=== PATIENT | male | born 1970 | race Caucasian/White ===

== ENCOUNTER 2019-04-21 10:10 | Emergency (ER) | payer MEDICARE, MEDICAID, SELFPAY ==
[2019-04-21 10:20] VITALS: BMI 37.5
--- NOTE | 2019-04-21 10:20 | ED_ITS ---
Entered by Cici Sanchez, acting as scribe for Andrew Ruiz DO HPI - General Adult General: Chief complaint: Neuro Symptoms/Deficit Stated complaint: Numbness Time Seen by Provider: 04/21/19 10:20 Source: patient Mode of arrival: ambulatory History of Present Illness: HPI narrative: 48 yo male presents with numbness to R face and R hand. pt states this started this morning while working. pt had pain to R shoulder also. pt states he felt he was having a allergic reaction so he took Benadryl but the symptoms worsened so he came in. pt denies any other symptoms at this time. 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) Location: face and upper extremity (R hand) Radiation: non-radiation Severity: moderate Pain Consistency: constant Relieving factors: none Exacerbating factors: none Associated symptoms: Reports no associated symptoms; Deny chest pain, dyspnea, malaise, nausea, rash or vomiting Treatments prior to arrival: none Review of Systems General: Reports: 10 or more systems reviewed and unremarkable except in HPI and below Const: Denies: fever, chills, body aches, change in appetite, fatigue or malaise ENMT: Denies: throat pain, ear pain, nasal discharge or nasal congestion Card: Denies: chest pain, edema, shortness of breath on exertion or shortness of breath when lying down Resp: Denies: shortness of breath, productive cough or non-productive cough GI: Denies: abdominal pain, nausea, vomiting, vomiting blood, coffee grounds in vomit, diarrhea, constipation, bloating, blood in stool or black tarry stool : Denies: flank pain, painful urination, urinary frequency or urinary urgency Skin/Breast: Denies: rash or itching Neuro: Reports: numbness in extremities PFSH ED PFSH: Statuses (acute, chronic, etc) shown below reflect problem list status as previously entered and may not be historically accurate Family History Grandmother Hypertension MATERNAL Social History Smoking and tobacco status: never smoked Physical Exam Const: COMMON NORMALS: no apparent distress GENERAL APPEARANCE: cooperative and comfortable ORIENTATION/CONSCIOUSNESS: Yes awake, Yes oriented to person, Yes oriented to place and Yes oriented to time HENMT: COMMON NORMALS: normocephalic, head/scalp atraumatic, hearing grossly normal bilaterally, external ears normal, EAC's normal, TM's normal bilaterally, nasal mucous membranes and turbinates normal, moist oral mucous membranes and oropharynx normal HEAD & SCALP: normocephalic and atraumatic NOSE: nasal mucous membranes and turbinates normal EXTERNAL EAR: Yes external ears normal EXTERNAL AUDITORY CANAL: EAC's normal TYMPANIC MEMBRANE: TM's normal bilaterally Eye: COMMON NORMALS: PERRL, EOMs intact bilaterally, conjunctivae normal and no scleral icterus CONJUNCTIVA: Yes conjunctivae normal PUPIL: Yes PERRL Neck/C-Spine: COMMON NORMALS: full ROM, no lymphadenopathy, supple and no JVD Lymph: LYMPHATIC: no lymphadenopathy noted and no lymphedema noted Resp: COMMON NORMALS: normal respiratory effort, no retractions, no use of accessory muscles and clear to auscultation bilaterally AUSCULTATION: clear to auscultation bilaterally Cardio: COMMON NORMALS: no JVD, regular rate, regular rhythm and no murmurs RATE: regular rate RHYTHM: regular rhythm GI: COMMON NORMALS: soft to palpation and no hepatosplenomegaly AUSCULTATION: Yes normoactive bowel sounds PALPATION: Yes soft, No tender, No guarding and Yes no hepatosplenomegaly Extremity: COMMON NORMALS: normal to inspection, normal capillary refill, no clubbing, cyanosis or edema, no calf tenderness and no pedal edema Neuro: SENSORIUM/ORIENTATION: Yes oriented to person, Yes oriented to place and Yes oriented to time Skin: COMMON NORMALS: no rashes or lesions noted GENERAL SKIN EXAM: no rashes or lesions noted Course ED course: Reviewed stroke score with the patient also reviewed the implications of physical exam finding. It is facial symptoms are only in 1 distribution of the facial nerve. 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 I do not believe this represents a central event seems to be more of a 2 different peripheral neurologic events a stroke score is low and his CT is normal. We will go ahead and discharge him home I am and have him take a baby aspirin daily have him follow-up with Dr. Anton. Return if has problems. Vital Signs: Vital signs: Vital Signs Temperature 97.8 F 02/10/20 10:28 Pulse Rate 87 04/21/19 11:57 Respiratory Rate 16 04/21/19 11:57 Blood Pressure 139/86 04/21/19 11:57 Pulse Oximetry 94 04/21/19 11:57 MDM - General Adult Lab Data: Labs: Lab Results 04/21/19 Range/Units 10:35 Specimen Type Arterial Sample Site Radial, left ABG pH 7.45 (7.35-7.45) ABG pCO2 35.6 (35-45) mmHg ABG pO2 66.0 L (80.0-100.0) mmH g ABG HCO3 24.8 (22-26) mmol/L ABG O2 Saturation 94.4 ABG Base Excess 1.3 (-2.0-2.0) mmol/ L Mehdi Test Pos A-a O2 Gradient 38.8 H (5-10) mmHg Hematocrit 48.7 (42-52) % Hgb O2 Saturation 89.5 L (95-100) % Carboxyhemoglobin 4.3 (0.4-20.1) %THgb Methemoglobin 0.9 (0.4-1.5) % Total Hemoglobin 15.9 (14-18) g/dL Sodium 142.0 (131-143) mmol/L Potassium 4.0 (3.5-5.0) mmol/L Glucose 119.0 H (70-115) mg/dL Ionized Calcium 1.2 (1.1-1.4) mmol/L O2 Delivery Device Room air Or First Assist Registered Nurse ID gd Imaging Data^: CT Head: Radiologist's impression: [place] [address] CT Scan Report Signed Patient: Jaspreet Charlton #: [id number] : 1970Acct#:[id number] Age/Sex: 48 / MADM Date: 04/21/19 Loc: ERRoom/Bed: Attending Dr: Ordering Provider/Ordering MD: Andrew Ruiz DO Date of Service: 04/21/19 Procedure(s): CT head wo con* [id number] Accession Number(s): [id number] Report Number: [id number] WS: [id number] CT HEAD TECHNIQUE: Noncontrast CT of the head obtained from the skullbase to the vertex. CLINICAL INFORMATION: R arm numbness COMPARISON: January 30, 2018 DLP: 859.[address] scans at [facility] use at least one of these dose optimization techniques: automated exposure control; mA and/or kV adjustment per patient size (includes targeted exams where dose is matched to clinical indica tion); or iterative reconstruction. FINDINGS: Beam hardening artifact degrades images from cochlear implants. No evidence of intracranial hemorrhage or mass effect. Ventricular system and basal cisterns are patent. No extra-axial fluid collections. No evidence of mass or mass effect. Normal ferro-white differentiation. Postoperative changes both mastoids with cochlear implants and partial mastoi dectomies. Chronic left greater than right mastoid effusions Notified Andrew Ruiz DO at 04/21/2019 11:[address]/CT head wo con* [id number] IMPRESSION: 1. No evidence of intracranial hemorrhage or mass effect. 2. Normal ferro-white differentiation. No hydrocephalus. 3. Bilateral cochlear implants with partial mastoidectomies and chronic left greater than right mastoid effusions. Dictated By:Henrry Horn MD Signed By:Henrry Horn MDSigned Date/Time:04/21/19 1137 Discharge Plan Discharge Patient Disposition: Home, Self-Care Clinical Impression: Facial nerve sensory disorder, Ulnar nerve neuropathy Condition: Stable Prescriptions: New aspirin 81 mg tablet,chewable 81 mg PO DAILY Qty: 30 RF: 4 No Action carisoprodol [Soma] 350 mg tablet 350 mg PO DAILY RF: 0 lisinopril 20 mg tablet 20 mg PO DAILY RF: 0 hydrocodone-acetaminophen 10-325 mg tablet 1 tab PO Q6H PRN (Reason: pain) 30 Days Qty: 91 RF: 0 Benadryl 25 mg Capsule 25 mg PO DAILY PRN (Reason: Itching) RF: 0 Discharge Orders: Discharge Order (Routine); Ordered 04/21/19 Ordered By: Andrew Ruiz Referrals: Mita Anton MD [Physician] - (Previous head trauma, right-sided facial nerve numbness right ulnar neuropathy) Discharge Diet: Usual diet Discharge Activity: Increase activity as tolerated Patient Instructions: Aspirin (By mouth), Paresthesia (ED) Activity Restrictions/Additional Instructions: Case management will call with referral to Dr. Anton Discharge Date/Time: 04/21/19 12:03 Coding Level of Care Code ED Cashier Host/Hostess for Sherifg Fwd Exam Problem Focused NIH stroke score NIHSS Level Of Consciousness - 1a: 0 Level Of Consciousness Questions - 1b: Both Correct Level Of Consciousness Commands - 1c: Both Correct Best Gaze - 2: Normal Visual Singh - 3: No Visual Loss Facial Palsy - 4: Normal Motor Arm Right - 5: No Drift Motor Arm Left - 5: No Drift Motor Leg Right - 6: No Drift Motor Leg Left - 6: No Drift Limb Ataxia - 7: Absent Sensory - 8: Mild To Moderate Loss Best Language - 9: No Aphasia Dysarthia - 10: Normal Extinction And Inattention - 11: 0 Score Total Score: 1 The documentation recorded by the Daniel lutz Bridget Annette, accurately reflects the service I personally performed and the decisions made by Sara west Curtis L, DO Apr 21, 2019 10:10
[2019-04-21 10:28] VITALS: BP 145/96; PULSE 97; RESP 16; TEMP 36.6; O2SAT 91
--- NOTE | 2019-04-21 10:29 | CT_ITS ---
WS: [id number] CT HEAD TECHNIQUE: Noncontrast CT of the head obtained from the skullbase to the vertex. CLINICAL INFORMATION: R arm numbness COMPARISON: January 30, 2018 DLP: 859.[address] scans at [facility] use at least one of these dose optimization techniques: automat ed exposure control; mA and/or kV adjustment per patient size (includes targeted exams where dose is matched to clinical indication); or iterative reconstruction. FINDINGS: Beam hardening artifact degrades images from cochlear implants. No evidence of intracranial hemorrhage or mass effect. Ventricular system and basal cisterns are cunningham nt. No extra-axial fluid collections. No evidence of mass or mass effect. Normal ferro-white different iation. Postoperative changes both mastoids with cochlear implants and partial mastoidectomies. Chronic left greater than right mastoid effusions Notified Andrew Ruiz DO at 04/21/2019 11:[address]/CT head wo con* [id number] IMPRESSION: 1. No evidence of intracranial hemorrhage or mass effect. 2. Normal ferro-white differentiation. No hydrocephalus. 3. Bilateral cochlear implants with partial mastoidectomies and chronic left g reater than right mastoid effusions.
[2019-04-21 10:52] LABS: ABG PCO2 35.6 mmHg (35-45); ABG PH Result 7.45 (7.35-7.45); Alveolar-Arterial Oxygen Gradi 38.8 mmHg (5-10); Arterial Blood Gas Hematocrit 48.7 % (42-52); Base Excess ABG 1.3 mmol/L (-2.0-2.0); Blood Gas Allen Test Pos; Blood Gas Sample Site Radial, left; Blood Gas Sample Type Arterial; Carboxyhemoglobin 4.3 %THgb (0.4-20.1); HCO3 ABG 24.8 mmol/L (22-26); HGB O2 Sat 89.5 % (95-100); Ionized Calcium Level - ABG 1.2 mmol/L (1.1-1.4); Methemoglobin 0.9 % (0.4-1.5); Oxygen Device ROOM AIR; Oxygen Saturation ABG 94.4; Total Hemoglobin 15.9 g/dL (14-18)
--- NOTE | 2019-04-21 11:14 | PC.NURSE ---
Pt returned from CT
[2019-04-21 11:36] VITALS: BP 139/86; PULSE 90; RESP 18; O2SAT 94
[2019-04-21] MEDS: ondansetron 2 mg/ML SDV 2 mL 4 MG IM (11:48)
[2019-04-21 11:57] VITALS: BP 139/86; PULSE 87; RESP 16; O2SAT 94
--- NOTE | 2019-04-22 14:43 | DCPLANNER ---
customer service manager had message to schedule a follow up appointment for patient with Dr. Anton. customer service manager called the office of Dr. Anton, spoke with Pura, was told that patients information would be printed and reviewed. Clinic will call patient with appointment information. customer service manager will call for appointment information.
--- NOTE | 2019-04-25 15:02 | DCPLANNER ---
Patient has an appointment scheduled for Monday, June 03, 2019 at 8:[address] Anton. Clinic will call patient with appointment information.
--- NOTE | 2019-05-02 15:43 | DCPLANNER ---
Patient did attend appointment scheduled for 05.05.[address] Anton.
== END 2019-04-21 12:03 | disposition home or self-care (01) ==
PROVIDERS: Emergency Provider Family Medicine; Family Provider Family Medicine
DX: G51.8 Other disorders of facial nerve (principal); G56.20 Lesion of ulnar nerve, unspecified upper limb
CPT/HCPCS: 36600; 70450; 80051; 82810; 83986; 96372; 99281; 99283; J2405

== ENCOUNTER → 2019-04-28 09:13 | Outpatient (BNVA) | payer MEDICARE, MEDICAID, SELFPAY | PROVIDERS: Family Provider Family Medicine; PCP Family Medicine; Referring Provider Family Medicine; Visit Provider Specialist | DX: R20.0 Anesthesia of skin (principal); M54.9 Dorsalgia, unspecified; S06.309D Unspecified focal traumatic brain injury with loss of consciousness of unspecified duration, subsequent encounter; X58.XXXD Exposure to other specified factors, subsequent encounter | CPT/HCPCS: 99204; 99214 ==

== ENCOUNTER 2019-04-29 07:33 | Outpatient (RCR) | payer MEDICARE, MEDICAID, SELFPAY | END 2019-05-10 23:59 | disposition home or self-care (01) | LOC: SPT 07:33 | PROVIDERS: Family Provider Family Medicine; PCP Family Medicine; Visit Provider Specialist | DX: M54.9 Dorsalgia, unspecified (principal) | CPT/HCPCS: 97110; 97162 ==

== ENCOUNTER → 2019-05-05 08:54 | Outpatient (BNVA) | payer MEDICARE, MEDICAID, SELFPAY | PROVIDERS: Family Provider Family Medicine; PCP Family Medicine; Visit Provider Specialist | DX: R20.0 Anesthesia of skin (principal); R29.90 Unspecified symptoms and signs involving the nervous system; R20.2 Paresthesia of skin | CPT/HCPCS: 95910 ==

== ENCOUNTER 2019-05-11 06:00 | Outpatient (RCR) | payer MEDICARE, MEDICAID, SELFPAY | END 2019-06-10 23:59 | disposition home or self-care (01) | LOC: SPT 06:00 | PROVIDERS: Family Provider Family Medicine; PCP Family Medicine; Visit Provider Specialist | DX: M54.9 Dorsalgia, unspecified (principal) | CPT/HCPCS: 97110 ==

== ENCOUNTER 2019-05-15 08:01 | Outpatient (CLI) | payer BC, MEDICAID, SELFPAY ==
--- NOTE | 2019-05-15 08:45 | USCV_ITS ---
Jaspreet Charlton Age: 48 Gender: M : 1970 Exam Date: 05/15/2019 08:36 Ordering Phys: Mita Anton MD Technologist: Estephania Macario Exam Location: [facility] Indication: TIA Risk Factors: Unknown Previous Vascular Surgery: None Right Brachial BP: / Left Brachial BP: / Right Left Velocity (cm/s) Spectral Plaque Velocity (cm/s) Spectral Plaque Syst/Diast Broadening Syst/Diast Broadening 94.80/ 25.40 Prox CCA 110.30/ 24.30 106.90/24.30 Mid CCA 87.10 / 22.10 91.50/ 22.10 Distal CCA 76.10 / 20.90 111.40/17.60 Prox ICA 88.20 / 20.90 71.70/ 23.20 Mid ICA 86.00 / 30.90 71.70/ 32.00 Distal ICA 52.10 / 18.80 134.50 ECA 100.30 1.22 ICA/CCA 1.16 Antegrade Vertebral Antegrade 34.80/ 10.50 cm/s 37.60/ 14.50 cm/s Subclavian 98.10 94.70 FINDINGS Comparison: none available. No significant elevation of systolic or diastolic velocities. Waveforms are normal. No significant amount of calcified plaque or intimal thickening identified. CONCLUSIONS Normal carotid doppler ultrasound. Dr. Lois St DO (Electronically Signed) Final Date: 15 May 2019 09:34 S
== END 2019-05-15 08:02 | disposition home or self-care (01) ==
PROVIDERS: Family Provider Family Medicine; PCP Family Medicine; Visit Provider Specialist
DX: G45.9 Transient cerebral ischemic attack, unspecified (principal)
CPT/HCPCS: 93880

== ENCOUNTER → 2019-07-16 14:03 | Outpatient (BNVA) | payer MEDICARE, MEDICAID, SELFPAY | PROVIDERS: Family Provider Family Medicine; PCP Family Medicine; Visit Provider Specialist | DX: I99.8 Other disorder of circulatory system (principal); F07.81 Postconcussional syndrome; R26.81 Unsteadiness on feet; S06.309D Unspecified focal traumatic brain injury with loss of consciousness of unspecified duration, subsequent encounter; X58.XXXD Exposure to other specified factors, subsequent encounter | CPT/HCPCS: 99214 ==

== ENCOUNTER → 2019-12-01 14:31 | Outpatient (BNVA) | payer MEDICARE, MEDICAID, SELFPAY | PROVIDERS: Family Provider Family Medicine; PCP Family Medicine; Visit Provider Family Medicine | DX: M70.20 Olecranon bursitis, unspecified elbow (principal); I10 Essential (primary) hypertension; M70.22 Olecranon bursitis, left elbow; L03.114 Cellulitis of left upper limb; Z68.39 Body mass index [BMI] 39.0-39.9, adult; Z71.89 Other specified counseling | CPT/HCPCS: 80053; 80061; 80500; 84550; 85025 ==

== ENCOUNTER → 2019-12-31 11:49 | Outpatient (BNVA) | payer MEDICARE, MEDICAID, SELFPAY | PROVIDERS: Family Provider Family Medicine; PCP Family Medicine; Visit Provider Family Medicine | DX: E03.9 Hypothyroidism, unspecified (principal); R79.89 Other specified abnormal findings of blood chemistry; R07.89 Other chest pain; M54.5 Low back pain; M15.9 Polyosteoarthritis, unspecified; G89.29 Other chronic pain | CPT/HCPCS: 84403; 84443 ==

== ENCOUNTER → 2020-01-01 18:13 | Outpatient (BNVA) | payer MEDICARE, MEDICAID, SELFPAY | PROVIDERS: Family Provider Family Medicine; PCP Family Medicine; Visit Provider Nurse Practitioner | DX: Z20.828 Contact with and (suspected) exposure to other viral communicable diseases (principal) | CPT/HCPCS: 87635 ==

== ENCOUNTER 2020-01-02 06:28 | Outpatient (CLI) | payer MEDICARE, MEDICAID, SELFPAY ==
--- NOTE | 2020-01-02 07:00 | XR_ITS ---
WS: [id number] KUB, 01/02/2020 Clinical Data: Stones Comparison: KUB, 02/20/2018. Findings: There is a calcification overlying the midportion of the right kidney. However this may be within the colon which is also overlapping the right kidney. No left renal calcifications are seen. There is a phlebolith in the right side of the true pelvis unchanged. There is a large amount of fecal material in the ascending and transverse colon. XR/XR KUB [id number] Impression: 1. Possible right renal calcification unchanged. 2. Negative for left renal calcifications or bladder calcifications.
== END 2020-01-02 06:29 | disposition home or self-care (01) ==
LOC: RAD 06:32
PROVIDERS: PCP Family Medicine; Visit Provider Urology
DX: N20.0 Calculus of kidney (principal)
CPT/HCPCS: 74018

== ENCOUNTER 2020-01-19 14:28 | Outpatient (CLI) | payer MEDICARE, MEDICAID, SELFPAY ==
--- NOTE | 2020-01-19 15:00 | US_ITS ---
WS: [id number] ULTRASOUND RENAL TECHNIQUE: Ultrasound examination of both kidneys. CLINICAL INFORMATION: RENAL MASS COMPARISON: None. FINDINGS: RIGHT:Superior pole simple Right renal cyst measuring 2.3 x 2.6 x 2.1 cm Right kidney is normal in size and appearance. Echogenicity: Normal. Cortical thickness: 1.7 cm; Normal. Hydronephrosis: None. Perinephric fluid: None. Right kidney measures: 12.5 cm x 6.3 cm x 6.6 cm. LEFT: Left kidney is normal in size and appearance. Echogenicity: Normal. Cortical thickness: 1.5 cm; Normal. Hydronephrosis: None. Perinephric fluid: None. Left kidney measures: 11.3 cm x 6.9 cm x 6.1 cm. Normal visualized aorta. Bladder is contracted. US/US renal BI* [id number] IMPRESSION: 1. No hydronephrosis in either kidney. 2. Normal bladder. 3. Superior pole simple Right renal cyst measuring 2.3 x 2.6 x 2.1 cm
== END 2020-01-19 14:29 | disposition home or self-care (01) ==
LOC: RAD 14:33
PROVIDERS: PCP Family Medicine; Visit Provider Nurse Practitioner Family
DX: N28.89 Other specified disorders of kidney and ureter (principal); N28.1 Cyst of kidney, acquired
CPT/HCPCS: 76770; 81003

== ENCOUNTER 2020-01-26 07:18 | Outpatient (CLI) | payer MEDICARE, MEDICAID, SELFPAY ==
--- NOTE | 2020-01-26 07:32 | NMCV_ITS ---
NM maria elena perf SPECT r/s* [id number] Jaspreet Charlton Age: 49 Gender: M : 1970 Exam Date: 01/26/2020 08:13 Ordering Phys: Hazel Smith Technologist: MARCIANO Beltran Exam Location: [facility] Indications: ANGINA STRESS TEST [facility] IMAGE PROTOCOL Rest/Stress 1 Exercise Day Radiopharmaceutical Dose (mCi) Administration Site Administered by Rest: Tc-99m 11.0 IV MARCIANO Enriquez Sestamibi Stress:Tc-99m 32.9 IV MARCIANO Enriquez Sestamibi Rest: 26-Jan-2020 60 Discovery 630 Stress: 26-Jan-2020 15 Discovery 630 Radiopharmaceutical was injected at 85 % maximum heart rate. Images obtained in supine and prone position. SPECT RESULTS Technical Quality: Excellent Raw Data Analysis: Normal Image Corrections: No attenuation or motion correction applied Summed Stress Score: 0 Summed Rest Score: 0 Summed Difference Score: 0 PERFUSION FINDINGS FUNCTIONAL RESULTS (calculated via Gated SPECT) Stress Image LV EF (%): 74 Stress EDV (mL):93 TID: 0.89 Stress ESV (mL):24 Rest Image LV EF (%): 74 FUNCTIONAL FINDINGS: Medium-size area of patchy decreased tracer uptake noted on basal to mid anterior wall over both stress and rest images suggestive of artifact in the absence of prone images. Large area of patchy persistently decreased tracer uptake noted in basal to distal inferior wall, in the absence of prone images could be artifact. IMPRESSIONS This study is negative for ischemia and low probability for obstructive coronary artery disease Left ventricle function is hyperdynamic and measured as 74%. EKG segment will be documented separately. Jeferson Samuel MD (Electronically Signed) Final Date: 27 January 2020 11:11 S
--- NOTE | 2020-01-26 07:32 | ECG_ITS ---
[facility] Test Date: 2020-01-26 Pat Name: Jaspreet Charlton Department: Room: Gender: Male Supervisor Cutting Department: Rebeka Almanza : 1970 Requested By: Hazel Smith Order Number: [id number] MD: KARI FAUST Interpretive Statements NAME OF STUDY: EXERCISE SESTAMIBI STRESS TEST INDICATION: Chest Pain EXERCISE DATA: The patient was exercised by Feliz protocol. Baseline heart rate was 75 beats per minute. Baseline blood pressure was 123/82 millimeters of mercury. Target heart rate was 171 beats per minute. Maximum heart rate achieved was 163, which was 95% of the target heart rate. Maximum blood pressure was 191/96 millimeters of mercury. Total exercise time was 4 minutes 6 seconds. Maximum METs achieved was 7.0, maximum VO2 was 24.5. The reason for ending the test was maximum effort achieved. The patient complained of during the stress test, which then resolved at the end of the test. ELECTROCARDIOGRAM: BASELINE: Sinus rhythm, normal axis, no significant ST-T changes at the baseline noted. EXERCISE: At the peak exercise level, no significant ST-T changes suggestive of ischemia noted. RECOVERY: During the recovery period, heart rate dropped appropriately. No significant ST-T changes in the recovery suggestive of ischemia noted. CONCLUSION: 1. Exercise capacity poor. 2. Heart rate response was appropriate. 3. Blood pressure response was hypertensive. 4. Symptoms not suggestive of ischemia. 5. Electrocardiogram portion of the stress test was not suggestive of ischemia. 6. Nuclear scan will be documented separately. Electronically Signed On 01-27-2020 20:33:40 ADVERTISING TEACHER by KARI FAUST [id number]
[2020-01-26 07:34] VITALS: BMI 37.5
[2020-01-26 09:07] VITALS: PULSE 99
== END 2020-01-26 07:19 | disposition home or self-care (01) ==
LOC: RAD 07:20
PROVIDERS: PCP Family Medicine; Visit Provider Nurse Practitioner Family
DX: R07.9 Chest pain, unspecified (principal)
CPT/HCPCS: 78452; 93017; A9500

== ENCOUNTER 2020-02-02 13:14 | Outpatient (CLI) | payer MEDICARE, MEDICAID, SELFPAY ==
--- NOTE | 2020-02-02 13:25 | XR_ITS ---
WS: [id number] ELBOW LEFT TECHNIQUE: 3 views of the left elbow CLINICAL INFORMATION: bursitis left elbow COMPARISON: None. FINDINGS: Soft tissue edema. No significant joint effusion. Soft tissue edema overlying the olecranon suspiciou s for olecranon bursitis. Recommend clinical correlation. Normal radial head and neck. No acute fract ures. XR/XR elbow LT min 3V* [id number] IMPRESSION: Soft tissue edema overlying the olecranon suspicious for olecranon bursitis. Re commend clinical correlation.
--- NOTE | 2020-02-02 13:25 | XR_ITS ---
WS: [id number] HIP WITH PELVIS RIGHT TECHNIQUE: 3 views of the right hip with pelvis CLINICAL INFORMATION: pain right hip COMPARISON: None. FINDINGS: Right hip is normal in appearance. No acute fractures. Mild joint space narrowing. Normal visualized right pubic rami. XR/XR hip RT 2-3V wo/w pel* [id number] IMPRESSION: No acute right hip fractures.
== END 2020-02-02 13:15 | disposition home or self-care (01) ==
PROVIDERS: PCP Family Medicine; Visit Provider Family Medicine
DX: M70.32 Other bursitis of elbow, left elbow (principal); M25.551 Pain in right hip; R60.0 Localized edema
CPT/HCPCS: 73080; 73502

== ENCOUNTER → 2020-02-04 12:05 | Outpatient (BNVA) | payer MEDICARE, MEDICAID, SELFPAY | PROVIDERS: PCP Family Medicine; Visit Provider Orthopaedic Surgery | DX: Z20.828 Contact with and (suspected) exposure to other viral communicable diseases (principal); Z11.59 Encounter for screening for other viral diseases | CPT/HCPCS: 87635 ==

== ENCOUNTER 2020-02-09 11:20 | Day surgery (SDC) | payer MEDICARE, MEDICAID, SELFPAY ==
[2020-02-04 16:12] VITALS: BMI 39.3
[2020-02-09 11:34] VITALS: BP 140/95; PULSE 82; RESP 18; TEMP 36.7; O2SAT 96
[2020-02-09] MEDS: sodium chloride 0.9% 1,000 ML 30 ML IV (11:48)
[2020-02-09] MEDS: HYDROcodone-acetaminophen 7.5-325 mg Tablet 1 TAB PO (12:10)
--- NOTE | 2020-02-09 13:21 | W.PM.OPSUD ---
Surgery/Procedure H&P Update DATE OF PROCEDURE: February 09, 2020 DATE H&P PERFORMED: 02/04/20 H&P UPDATE INFORMATION: I have reviewed H&P completed within last 30 days, I have examined patient prior to procedure and No changes to prior documentation PREOP DIAGNOSIS: left elbow bursitis PLANNED PROCEDURE: Operation Date: 02/09/20 13:20 Proposed Procedures p Excision, olecranon bursa ([id number]) M71.50(Not Applicable) - Alejandro Connolly DO
--- NOTE | 2020-02-09 13:32 | ANES.PREANE2 ---
Pre-Anesthetic Assessment Pre-Anesthetic Assessment: Height/Weight: Height 1.7 m Weight 113.852 kg Temp Pulse Resp BP Pulse Ox 98.1 F 82 18 140/95 96 02/09/20 11:34 02/09/20 11:34 02/09/20 11:34 02/09/20 11:34 02/09/20 11:34 Preop Diagnosis: left elbow bursitis Proposed Procedure: Operation Date: 02/09/20 13:20 Proposed Procedures p Excision, olecranon bursa ([id number]) M71.50(Not Applicable) - Alejandro Connolly, DO Was Beta Garima taken within 24 hours: Yes Last intake: Intake Last Liquid Date 02/09/20 Last Liquid Time 04:00 Last Solid Date 02/08/20 Last Solid Time 20:00 Social: Social History: No alcohol and No tobacco Exam: Pre-Anes Outpt Exam: alert, oriented x 3, clear to auscultation bilaterally and regular rate & rhythm Airway: Submandibular: WNL Cervical ROM: WNL MP: 2 Dentition: Full Additional comments: Schuler Pulmonary: Pulmonary: Sleep apnea CV/HEM: CV/HEM: HTN : : None reported Hepatic: Hepatic: None reported GI: GI: None reported Metabolic: Metabolic: None reported Musc/skel: Musc/skel: Lower Back Pain Comments: Chronic pain Neuropsych: Neuropsych: Neuropathy Anesthetic Plan: ASA status: 3 Anesthesia: General Risk of > 500 ml blood loss (7ml/kg in children): No Meds/Allergies Current Medications: Current Medications Generic Name Dose Route Start Last Admin Trade Name Freq PRN Reason Stop Dose Admin Sodium Chloride 1,000 mls @ 30 ml s/hr 02/09/20 11:30 02/09/20 11:48 Sodium Chloride 0.9% IV 02/10/20 11:29 30 mls/hr .Q24H EDMOND Administration PFSH Anesthesia PFSH: Medical History Essential hypertension HTN (hypertension) Hypothyroid Low testosterone GABBIE (obstructive sleep apnea) Osteoarthritis involving multiple joints on both sides of body Osteoarthritis of right hip Renal calculus, right Renal cyst, right Renal mass, right Family History Grandmother Hypertension MATERNAL Other CAD (coronary artery disease) Stroke Denies family history of Diabetes Cancer Social History Smoking and tobacco status: never smoked Alcohol intake: never History of recent travel: No Data Anesthesia Cardiac Studies: Cardiac Event Monitor 12/26/19
--- NOTE | 2020-02-09 14:06 | SUR.PREOP ---
REPORT WAS GIVEN FROM NIDHI ODOM TO NIDHI ODONNELL @3919
--- NOTE | 2020-02-09 15:21 | PM.OP ---
Operative Report Date of procedure: February 09, 2020 Pre-op Diagnosis: left elbow bursitis Post-op diagnosis: same Procedure Done: left elbow bursectomy Anesthesia: General Estimated blood loss (mL): 5 Condition: stable Disposition: PACU Procedure: Patient was brought to the operative suite placed in the supine position all areas impingement well-padded patient was prepped and draped in normal sterile fashion. Skin incision made over the bursa the bursa sac was dissected out using Metzenbaums and Bovie. Once the bursal sac was removed it was sent for cultures. The wound was then irrigated and wound was closed with 2-0 Vicryl tacking of the skin to the tissue along the bone. In order to close the space. The 2-0 Vicryl was used to close the subcu and nylon to close the skin. Patient was has sterile dressings applied patient had a posterior splint placed in order to facilitate healing the wound.
[2020-02-09 15:26] VITALS: BP 114/79; PULSE 100; RESP 19; TEMP 37.1; O2SAT 98
[2020-02-09 15:30] VITALS: BP 111/85; PULSE 97; RESP 18; O2SAT 98
[2020-02-09 15:35] VITALS: BP 117/82; PULSE 87; RESP 18; TEMP 36.6; O2SAT 99
[2020-02-09 15:43] VITALS: BP 121/83; PULSE 95; RESP 16; TEMP 36.4; O2SAT 93
--- NOTE | 2020-02-09 15:49 | SUR.PHASEI ---
1540 PT ALERT TALKATIVE PT HAS COCHLEAR IMPLANTS BILAT EARS PT ADJUSTED THEM AND RESPONDS APPROP , VSS PT REQUESTS COKE TO SIP ON PT TO OPS AWAKE ALERT HANDOFF AT BEDSIDE.
[2020-02-09 15:58] VITALS: BP 117/82; PULSE 94; RESP 16; TEMP 36.6; O2SAT 95
--- NOTE | 2020-02-09 17:09 | PM.PACU ---
PACU note PACU note: VSS Post-Anesthesia Exam: awake Disposition: discharged
== END 2020-02-09 16:50 | disposition home or self-care (01) ==
PROVIDERS: PCP Family Medicine; Visit Provider Orthopaedic Surgery
PROC: (CPT 24105; principal; 2020-02-09 13:10)
DX: M70.32 Other bursitis of elbow, left elbow (principal); I10 Essential (primary) hypertension; G47.33 Obstructive sleep apnea (adult) (pediatric); E03.9 Hypothyroidism, unspecified
CPT/HCPCS: 24105; 12345; 87070; 87176; 87205; J0690; J2250; J2405; J2704; J3010; J3490; J7030

== ENCOUNTER 2020-02-19 14:04 | Outpatient (CLI) | payer MEDICARE, MEDICAID, SELFPAY | END 2020-02-19 14:05 | disposition home or self-care (01) | LOC: SPT 14:06 | PROVIDERS: PCP Family Medicine; Visit Provider Orthopaedic Surgery | DX: R26.81 Unsteadiness on feet (principal) | CPT/HCPCS: 97760; L3761 ==

== ENCOUNTER → 2020-03-16 13:45 | Outpatient (BNVA) | payer MEDICARE, MEDICAID, SELFPAY | PROVIDERS: PCP Family Medicine; Visit Provider Internal Medicine | DX: M25.50 Pain in unspecified joint (principal); Z11.59 Encounter for screening for other viral diseases; E29.1 Testicular hypofunction; K04.7 Periapical abscess without sinus | CPT/HCPCS: 36415; 80053; 82306; 82550; 82728; 82955; 83540; 83735; 84100; 85025; 86140; 86431; 86704; 86803; 86812; 87340; 99203 ==

== ENCOUNTER 2020-03-17 13:20 | Outpatient (CLI) | payer MEDICARE, MEDICAID, SELFPAY ==
--- NOTE | 2020-03-17 13:34 | XR_ITS ---
WS: [id number] SI JOINTS TECHNIQUE: 3 views of the sacroiliac joints CLINICAL INFORMATION: L40.9 - Psoriasis, unspecified COMPARISON: None. FINDINGS: Normal sacroiliac joints. No periarticular erosions. XR/XR sacroiliac jts 3V [id number] IMPRESSION: Normal sacroiliac joints.
--- NOTE | 2020-03-17 13:34 | XR_ITS ---
WS: [id number] TECHNIQUE: 2 views of the left hand CLINICAL INFORMATION: M25.50 - Pain in unspecified joint COMPARISON: None. FINDINGS: Normal metacarpals. Normal MCP joint. Metacarpal heads are normal in appearance. Normal PIP and DIP j oints. No evidence of acute fracture or dislocation. Radiocarpal joint: Normal. Carpal bones: Normal. XR/XR hand LT 2V [id number] IMPRESSION: Normal left hand.
--- NOTE | 2020-03-17 13:34 | XR_ITS ---
WS: [id number] TECHNIQUE: 2 views of the right hand CLINICAL INFORMATION: M25.50 - Pain in unspecified joint COMPARISON: None. FINDINGS: Normal metacarpals. Normal MCP joint. Metacarpal heads are normal in appearance. Normal PIP and DIP j oints. No evidence of acute fracture or dislocation. Radiocarpal joint: Normal. Carpal bones: Normal. XR/XR hand RT 2V [id number] IMPRESSION: Normal right hand.
--- NOTE | 2020-03-17 13:34 | XR_ITS ---
WS: [id number] FOOT LEFT TECHNIQUE: 2 views of the left foot CLINICAL INFORMATION: M25.50 - Pain in unspecified joint COMPARISON: None. FINDINGS: No evidence of acute fracture or dislocation. Normal tarsal metatarsal alignment. Normal calcaneus. N ormal visualized talar dome. No acute findings. XR/XR foot LT 2V [id number] IMPRESSION: Normal left foot.
--- NOTE | 2020-03-17 14:16 | XR_ITS ---
WS: [id number] FOOT RIGHT TECHNIQUE: 2 views of the right foot CLINICAL INFORMATION: M15.9 - Polyosteoarthritis, unspecified COMPARISON: None. FINDINGS: No evidence of acute fracture or dislocation. Normal tarsal metatarsal alignment. Normal calcaneus. N ormal visualized talar dome. No acute findings. XR/XR foot RT 2V [id number] IMPRESSION: Normal right foot.
== END 2020-03-17 13:21 | disposition home or self-care (01) ==
LOC: RADWPI 13:27
PROVIDERS: PCP Family Medicine; Visit Provider Internal Medicine
DX: M15.9 Polyosteoarthritis, unspecified (principal); M25.50 Pain in unspecified joint; L40.9 Psoriasis, unspecified
CPT/HCPCS: 72202; 73120; 73620

== ENCOUNTER 2020-03-29 13:59 | Outpatient (RCR) | payer MEDICARE, MEDICAID, SELFPAY | END 2020-04-11 23:59 | disposition home or self-care (01) | LOC: SOT 13:59 | PROVIDERS: PCP Family Medicine; Referring Provider Orthopaedic Surgery; Visit Provider Orthopaedic Surgery | DX: Z98.890 Other specified postprocedural states (principal) | CPT/HCPCS: 97165 ==

== ENCOUNTER → 2020-04-06 10:14 | Outpatient (BNVA) | payer MEDICARE, MEDICAID, SELFPAY | PROVIDERS: PCP Family Medicine; Visit Provider Internal Medicine | DX: M19.90 Unspecified osteoarthritis, unspecified site (principal); R79.89 Other specified abnormal findings of blood chemistry; G47.00 Insomnia, unspecified; E55.9 Vitamin D deficiency, unspecified; M62.838 Other muscle spasm | CPT/HCPCS: 99214 ==

== ENCOUNTER → 2020-04-13 14:24 | Outpatient (BNVA) | payer MEDICARE, MEDICAID, SELFPAY | PROVIDERS: PCP Family Medicine; Referring Provider Internal Medicine; Visit Provider Internal Medicine | DX: E23.7 Disorder of pituitary gland, unspecified (principal); G62.9 Polyneuropathy, unspecified; R79.89 Other specified abnormal findings of blood chemistry | CPT/HCPCS: 99204 ==

== ENCOUNTER 2020-04-14 08:46 | Outpatient (CLI) | payer MEDICARE, MEDICAID, SELFPAY ==
[2020-04-14 10:02] LABS: Basophils # 0.1 10^3/uL (0.0-0.1); Eosinophils # 0.1 10^3/uL (0.0-0.8); Eosinophils % 1.9 %; Hematocrit 50.1 % (42.0-52.0); Hemoglobin 16.5 g/dL (11.7-16.6); Lymphocytes # 2.1 10^3/uL (0.8-4.8); Lymphocytes % 30.7 %; Mean Corpuscular HGB Conc 32.9 g/dL (30.0-36.0); Mean Corpuscular Hemoglobin 28.4 pg (28.0-34.0); Mean Corpuscular Volume 86.2 fL (80-94); Mean Platelet Volume 10.1 fL (7.4-10.4); Monocytes # 0.8 10^3/uL (0.2-0.9); Monocytes % 12.2 %; Neutrophils # 3.69 10^3/uL (1.8-7.7); Neutrophils % 53.8 %; Nucleated Red Blood Cells % 0 %; Platelet Count 334 10^3/cmm (130-400); Red Blood Count 5.81 10^6/uL (4.1-5.3); Red Cell Distribution Width 12.8 % (12.1-15.1); White Blood Count 6.9 10^3/uL (4.0-10.0)
[2020-04-14 10:20] LABS: Follicle Stimulating Hormone 0.3 mIU/mL (1.5-12.4); Luteinizing Hormone 0.2 mIU/mL (1.7-8.6); Prolactin 23.52 ng/mL (4.0-15.2); Prostate Specific Antigen 0.784 ng/mL (0-4)
[2020-04-14 11:27] LABS: Estmated Average Glucose 114; Hemoglobin A1C 5.6 % (4.0-6.0)
[2020-04-14 11:34] LABS: Free T4 Free Thyroxine 1.36 ng/dL (0.82-1.77); Testosterone Total 554.8 ng/dL (249-836)
[2020-04-14 11:36] LABS: Cortisol Random 4.27 ug/dL (2.47-19.5)
[2020-04-21 05:28] LABS: Adrenocorticotropic Hormone 9 pg/mL (6-50)
== END 2020-04-14 08:47 | disposition home or self-care (01) ==
PROVIDERS: PCP Family Medicine; Visit Provider Internal Medicine
DX: E23.7 Disorder of pituitary gland, unspecified (principal); G62.9 Polyneuropathy, unspecified; R79.89 Other specified abnormal findings of blood chemistry
CPT/HCPCS: 36415; 82024; 82533; 83001; 83002; 83036; 84146; 84153; 84403; 84439; 85025

== ENCOUNTER 2020-05-10 07:15 | Outpatient (CLI) | payer MEDICARE, MEDICAID, SELFPAY ==
[2020-05-10 07:45] LABS: Basophils # 0.1 10^3/uL (0.0-0.1); Basophils % 0.8 %; Eosinophils # 0.2 10^3/uL (0.0-0.8); Eosinophils % 2.3 %; Hematocrit 49.6 % (42.0-52.0); Hemoglobin 16.3 g/dL (11.7-16.6); Lymphocytes % 39.1 %; Mean Corpuscular HGB Conc 32.9 g/dL (30.0-36.0); Mean Corpuscular Hemoglobin 28.4 pg (28.0-34.0); Mean Corpuscular Volume 86.6 fL (80-94); Monocytes # 0.7 10^3/uL (0.2-0.9); Monocytes % 9.1 %; Neutrophils # 3.73 10^3/uL (1.8-7.7); Neutrophils % 48.3 %; Nucleated Red Blood Cells % 0 %; Platelet Count 294 10^3/cmm (130-400); Red Blood Count 5.73 10^6/uL (4.1-5.3); White Blood Count 7.7 10^3/uL (4.0-10.0)
[2020-05-10 08:04] LABS: Alanine Aminotransferase 28 U/L (0-41); Albumin Level 4.3 g/dL (3.5-5.2); Alkaline Phosphatase 87 IU/L (40-130); Anion Gap 11.8 (5-19); Aspartate Amino Transferase 17 U/L (0-40); Blood Urea Nitrogen 16 mg/dL (6-20); C Reactive Protein 1.1 mg/L (0.0-4.9); Calcium 8.8 mg/dL (8.5-10.5); Carbon Dioxide 28 mmol/L (22-29); Chloride 104 mmol/L (98-107); Globulin 2.6 g/dL (1.3-4.6); Glomerular Filtration Rate 102.7 mL/min (90-130); Glucose 98 mg/dL (65-115); Osmolality Calculated 291 mOsm/kg (285-295); Potassium 3.8 mmol/L (3.5-5.1); Sodium 140 mmol/L (136-145); Total Bilirubin 0.5 mg/dL (0.15-1.2); Total Protein 6.9 g/dL (6.6-8.7)
[2020-05-10 10:11] LABS: Erythrocyte Sedimentation Rate 3 mm/hr (0-10)
== END 2020-05-10 07:16 | disposition home or self-care (01) ==
LOC: LAB 07:20
PROVIDERS: PCP Family Medicine; Visit Provider Internal Medicine
DX: M19.90 Unspecified osteoarthritis, unspecified site (principal)
CPT/HCPCS: 36415; 80053; 85025; 85651; 86140

== ENCOUNTER → 2020-05-12 09:52 | Outpatient (BNVA) | payer MEDICARE, MEDICAID, SELFPAY | PROVIDERS: PCP Family Medicine; Visit Provider Internal Medicine | DX: E23.7 Disorder of pituitary gland, unspecified (principal); R79.89 Other specified abnormal findings of blood chemistry | CPT/HCPCS: 99215 ==

== ENCOUNTER 2020-05-13 07:41 | Outpatient (CLI) | payer MEDICARE, MEDICAID, SELFPAY ==
[2020-05-17 13:24] LABS: IGF1 LC/MS 189 ng/mL (52-328); Z Score (Female) 0.6 SD (-2.0 - +2.0)
== END 2020-05-13 07:42 | disposition home or self-care (01) ==
LOC: LAB 07:44
PROVIDERS: PCP Family Medicine; Visit Provider Internal Medicine
DX: E23.7 Disorder of pituitary gland, unspecified (principal)
CPT/HCPCS: 36415; 84305

== ENCOUNTER 2020-05-26 13:59 | Outpatient (CLI) | payer MEDICARE, MEDICAID, SELFPAY ==
[2020-05-26 14:35] LABS: Basophils # 0.1 10^3/uL (0.0-0.1); Basophils % 0.8 %; Eosinophils # 0.1 10^3/uL (0.0-0.8); Eosinophils % 1.7 %; Hematocrit 49.6 % (42.0-52.0); Hemoglobin 16.1 g/dL (11.7-16.6); Lymphocytes # 2.6 10^3/uL (0.8-4.8); Lymphocytes % 33.3 %; Mean Corpuscular HGB Conc 32.5 g/dL (30.0-36.0); Mean Corpuscular Hemoglobin 28.5 pg (28.0-34.0); Mean Corpuscular Volume 87.8 fL (80-94); Mean Platelet Volume 10.5 fL (7.4-10.4); Monocytes % 12.5 %; Neutrophils # 3.95 10^3/uL (1.8-7.7); Neutrophils % 51.3 %; Nucleated Red Blood Cells % 0 %; Platelet Count 228 10^3/cmm (130-400); Red Blood Count 5.65 10^6/uL (4.1-5.3); Red Cell Distribution Width 13.3 % (12.1-15.1); White Blood Count 7.7 10^3/uL (4.0-10.0)
[2020-05-26 15:13] LABS: Vitamin B12 335 pg/mL (232-1245)
[2020-05-26 15:24] LABS: Erythrocyte Sedimentation Rate 8 mm/hr (0-10)
[2020-05-30 23:12] LABS: Tissue Transglutaminase IgA Ab <1 U/mL; Tissue transglutaminase Ab.IgG 2 U/mL
[2020-05-31 17:12] LABS: Immunoglobulin A 142 mg/dL (47-310)
[2020-06-03 16:28] LABS: Gliadin Ab.IgA 2 U (<20); Gliadin Ab.IgG 2 U (<20)
== END 2020-05-26 14:00 | disposition home or self-care (01) ==
LOC: LAB 14:06
PROVIDERS: PCP Family Medicine; Visit Provider Internal Medicine
DX: M25.50 Pain in unspecified joint (principal); M19.90 Unspecified osteoarthritis, unspecified site
CPT/HCPCS: 36415; 82607; 82784; 83516; 85025; 85651

== ENCOUNTER 2020-06-05 07:44 | Outpatient (CLI) | payer MEDICARE, MEDICAID, SELFPAY ==
[2020-06-05 09:04] LABS: Testosterone Total 356.9 ng/dL (249-836)
[2020-06-10 10:06] LABS: Testosterone, Free 52.1
== END 2020-06-05 07:45 | disposition home or self-care (01) ==
PROVIDERS: Internal Medicine; PCP Family Medicine; Visit Provider Family Medicine
DX: R79.89 Other specified abnormal findings of blood chemistry (principal)
CPT/HCPCS: 36415; 84402; 84403

== ENCOUNTER → 2020-07-01 10:57 | Outpatient (BNVA) | payer MEDICARE, MEDICAID, SELFPAY | PROVIDERS: PCP Family Medicine; Visit Provider Internal Medicine | DX: M15.9 Polyosteoarthritis, unspecified (principal); G47.33 Obstructive sleep apnea (adult) (pediatric); M54.5 Low back pain; G89.29 Other chronic pain; R79.89 Other specified abnormal findings of blood chemistry | CPT/HCPCS: 99213; 99214 ==

== ENCOUNTER 2020-08-04 06:00 | Outpatient (RCR) | payer MEDICARE, MEDICAID, SELFPAY | END 2020-08-09 23:59 | disposition home or self-care (01) | LOC: SPT 06:00 | PROVIDERS: PCP Family Medicine; Referring Provider Internal Medicine; Visit Provider Internal Medicine | DX: M16.51 Unilateral post-traumatic osteoarthritis, right hip (principal) | CPT/HCPCS: 97161 ==

== ENCOUNTER 2020-08-10 06:00 | Outpatient (RCR) | payer MEDICARE, MEDICAID, SELFPAY | END 2020-09-08 23:59 | disposition home or self-care (01) | LOC: SPT 06:00 | PROVIDERS: PCP Family Medicine; Referring Provider Internal Medicine; Visit Provider Internal Medicine | DX: M16.51 Unilateral post-traumatic osteoarthritis, right hip (principal) | CPT/HCPCS: 97110 ==

== ENCOUNTER 2020-08-20 09:31 | Outpatient (CLI) | payer MEDICARE, MEDICAID, SELFPAY ==
[2020-08-20 10:10] LABS: Hematocrit 49.1 % (42.0-52.0); Hemoglobin 16.2 g/dL (11.7-16.6); Mean Corpuscular Hemoglobin 28.4 pg (28.0-34.0); Mean Platelet Volume 10.7 fL (7.4-10.4); Platelet Count 243 10^3/cmm (130-400); Red Blood Count 5.71 10^6/uL (4.1-5.3); Red Cell Distribution Width 13.7 % (12.1-15.1); White Blood Count 5.6 10^3/uL (4.0-10.0)
[2020-08-20 10:25] LABS: Absolute Segmented Neutrophil 2.6 10/cmm (1.6-7.1); Eosinophils 0 %; Lymphocytes 23 %; Lymphocytes Absolute 1.3 10^3/cmm (1.2-3.4); Monocytes Absolute 1.7 10^3/cmm (0.1-0.6); Segmented Neutrophils 47 %; Total Cells Counted 100 (0-100)
[2020-08-20 10:26] LABS: Absolute Neutrophil 2.6 10^3/cmm (1.4-6.5); Platelet Estimate Normal (Normal)
[2020-08-20 10:30] LABS: Creatinine Urine, Random 288 mg/dL (39-259)
[2020-08-20 10:32] LABS: Microalbum Creatinine Ratio Ur 3 mg/dL (0-20); Microalbumin Random Urine < 1 ug/dL (0-20)
[2020-08-20 10:36] LABS: Prolactin 26.29 ng/mL (4.0-15.2); Prostate Specific Antigen 0.659 ng/mL (0-4); Thyroid Stimulating Hormone 2.01 uIU/mL (0.27-4.20)
[2020-08-20 10:38] LABS: Follicle Stimulating Hormone < 0.1 mIU/mL (1.5-12.4); Luteinizing Hormone < 0.1 mIU/mL (1.7-8.6)
[2020-08-20 10:43] LABS: Erythrocyte Sedimentation Rate 3 mm/hr (0-10)
[2020-08-20 10:47] LABS: Alanine Aminotransferase 22 U/L (0-41); Albumin Level 4.1 g/dL (3.5-5.2); Alkaline Phosphatase 90 IU/L (40-130); Aspartate Amino Transferase 18 U/L (0-40); Blood Urea Nitrogen 17 mg/dL (6-20); C Reactive Protein 1.4 mg/L (0.0-4.9); Calcium 8.3 mg/dL (8.5-10.5); Carbon Dioxide 26 mmol/L (22-29); Chloride 105 mmol/L (98-107); Cholesterol 156 mg/dL (0-200); Glomerular Filtration Rate 102.7 mL/min (90-130); Glucose 105 mg/dL (65-115); HDL Cholesterol 41 mg/dL (60-100); LDL Cholesterol Calculated 95 mg/dL (50-129); LDL HDL Ratio 2.32 RATIO (0.00-3.22); Osmolality Calculated 288 mOsm/kg (285-295); Sodium 138 mmol/L (136-145); Total Bilirubin 0.8 mg/dL (0.15-1.2); Total Protein 6.1 g/dL (6.6-8.7); Triglycerides 101 mg/dL (0-150)
[2020-08-20 11:19] LABS: Free T4 Free Thyroxine 1.12 ng/dL (0.82-1.77); Testosterone Total 831.7 ng/dL (249-836)
== END 2020-08-20 09:32 | disposition home or self-care (01) ==
PROVIDERS: PCP Family Medicine; Referring Provider Internal Medicine; Visit Provider Nurse Practitioner Family
DX: I10 Essential (primary) hypertension (principal); R52 Pain, unspecified; E29.1 Testicular hypofunction; N52.9 Male erectile dysfunction, unspecified
CPT/HCPCS: 36415; 80053; 80061; 82044; 83001; 83002; 84146; 84153; 84403; 84439; 84443; 85007; 85027; 85651; 86140

== ENCOUNTER 2020-09-14 14:01 | Outpatient (CLI) | payer MEDICARE, MEDICAID, SELFPAY ==
--- NOTE | 2020-09-14 14:08 | CT_ITS ---
WS: [id number] CT HEAD WITH AND WITHOUT CONTRAST with attention to the pituitary gland. HISTORY: TESTICULAR HYPOFUNCTION TECHNIQUE: Noncontrast 2.5 mm axial images obtained from the vertex to the skull base. Additional florencia ging performed at 2.5 mm axial images status post IV contrast. Reformats are performed with attention to the pituitary gland. Bone and soft tissue windows are reviewed. All CT scans at [facility] use at least one of these dose optimization techniques: automated exposure control; mA and/or k V adjustment per patient size (includes targeted exams where dose is matched to clinical indication); or iterative reconstruction. CONTRAST: Visipaque 320; 95 mL IV. DLP: 1599.15 mGy.cm COMPARISON: 04/21/2019 No acute intracranial hemorrhage, edema or midline shift. Patient has bilateral cochlear implants causing significant artifact through the brain. There is no e vidence for pituitary mass or mass arising from the sella turcica. Pituitary gland is small caliber. No deviation of the optic chiasm or the infundibulum. No aneurysms are identified. No enhancing dion s are present within the visualized brain that is not obscured by artifact from the cochlear implant. Ventricles are normal size. Paranasal sinuses as visualized: Clear. Mastoid air cells: Bilateral mastoidectomies. Partial removal of the mastoid air cells. Small amount of fluid in the LEFT remaining mastoid air cells. Similar to the prior study. Calvarium and scalp: Intact. CT/CT head wo/w con [id number] IMPRESSION: 1. Normal appearance of the sella turcica by CT. No enhancing masses or deform ity of the sella turcica. 2. Beam hardening artifact through the brain from the bilateral cochlear impla nts. 3. Partial mastoidectomies. Stable since 04/21/2019.
[2020-09-14] MEDS: iodixanol 320 mg/mL 100mL Btl IV (15:08)
== END 2020-09-14 14:02 | disposition home or self-care (01) ==
LOC: RAD 14:03
PROVIDERS: PCP Family Medicine; Visit Provider Nurse Practitioner
DX: E29.1 Testicular hypofunction (principal)
CPT/HCPCS: 70470

== ENCOUNTER → 2020-09-30 10:45 | Outpatient (BNVA) | payer MEDICARE, MEDICAID, SELFPAY | PROVIDERS: PCP Family Medicine; Visit Provider Emergency Medicine | DX: Z20.822 Contact with and (suspected) exposure to COVID-19 (principal) | CPT/HCPCS: 87426 ==

== ENCOUNTER 2020-12-02 15:56 | Outpatient (CLI) | payer MEDICARE, MEDICAID, SELFPAY ==
--- NOTE | 2020-12-02 16:03 | XR_ITS ---
WS: [id number] Chest 2 views, 12/02/2020 Clinical Data: COUGH Comparison: Portable chest, 01/04/2018. Findings: No nodules, masses or effusions are seen. The heart is normal. The pulmonary vascularity is not increased. No pneumonia or pneumothorax is seen. XR/XR chest 2V* [id number] Impression: Negative chest.
== END 2020-12-02 15:57 | disposition home or self-care (01) ==
PROVIDERS: PCP Nurse Practitioner Family; Visit Provider Nurse Practitioner Family
DX: R05 Cough (principal)
CPT/HCPCS: 71046

== ENCOUNTER 2020-12-31 09:56 | Outpatient (CLI) | payer MEDICARE, MEDICAID, SELFPAY ==
--- NOTE | 2020-12-31 10:12 | XR_ITS ---
WS: [id number] Right foot, 3 views, 12/31/2020 Clinical Data: RIGHT FOOT PAIN Comparison: Right foot, 03/17/2020. Findings: No fractures or dislocations are seen. No bone destruction or erosion is noted. The joint spaces and soft tissues are normal. XR/XR foot RT min 3V* [id number] Impression: Negative right foot.
== END 2020-12-31 09:57 | disposition home or self-care (01) ==
LOC: RAD 10:02
PROVIDERS: PCP Nurse Practitioner Family; Visit Provider Nurse Practitioner Family
DX: M79.671 Pain in right foot (principal)
CPT/HCPCS: 73630

== ENCOUNTER 2021-03-02 11:11 | Emergency (ER) | payer MEDICARE, MEDICAID, SELFPAY ==
[2021-03-02 11:18] VITALS: BP 146/99; PULSE 87; RESP 18; TEMP 36.5; O2SAT 96; BMI 38.3
[2021-03-02 12:51] LABS: Basophils # 0.1 10^3/uL (0.0-0.1); Basophils % 0.9 %; Eosinophils # 0.1 10^3/uL (0.0-0.8); Eosinophils % 0.9 %; Hematocrit 47.9 % (42.0-52.0); Hemoglobin 15.7 g/dL (11.7-16.6); Lymphocytes # 1.4 10^3/uL (0.8-4.8); Lymphocytes % 19.9 %; Mean Corpuscular HGB Conc 32.8 g/dL (30.0-36.0); Mean Corpuscular Hemoglobin 29.1 pg (28.0-34.0); Mean Corpuscular Volume 88.7 fl (80-94); Mean Platelet Volume 10.5 fL (7.4-10.4); Monocytes # 0.7 10^3/uL (0.2-0.9); Monocytes % 9.6 %; Neutrophils % 68.4 %; Nucleated Red Blood Cells % 0 %; Platelet Count 251 10^3/cmm (130-400); Red Cell Distribution Width 13.7 % (12.1-15.1)
[2021-03-02 13:10] LABS: Alanine Aminotransferase 69 U/L (0-41); Albumin Level 4.3 g/dL (3.5-5.2); Alkaline Phosphatase 104 IU/L (40-130); Anion Gap 16.1 (5-19); Aspartate Amino Transferase 50 U/L (0-40); Blood Urea Nitrogen 12 mg/dL (6-20); Calcium 8.7 mg/dL (8.5-10.5); Carbon Dioxide 26 mmol/L (22-29); Chloride 102 mmol/L (98-107); Globulin 2.6 g/dL (1.3-4.6); Glomerular Filtration Rate 102.3 mL/min (90-130); Glucose 97 mg/dL (65-115); Lipase 14 U/L (13-60); Osmolality Calculated 290 mOsm/kg (285-295); Potassium 4.1 mmol/L (3.5-5.1); Sodium 140 mmol/L (136-145); Total Bilirubin 1.2 mg/dL (0.15-1.2); Total Protein 6.9 g/dL (6.6-8.7)
--- NOTE | 2021-03-02 13:40 | ED_ITS ---
Documented by User: FRANK Sultana 03/02/21 13:56 HPI - General Adult General: Chief complaint: Abdominal Pain Stated complaint: R ABD PAIN Time Seen by Provider: 03/02/21 14:35 History of Present Illness: HPI narrative: P patient states he has had abdominal pain last few days went to his provider they sent him over here because they want to get his gallbladder checked out because had right upper quadrant pain. Patient denies any vomiting. Onset (ago): hour(s) Associated symptoms: Reports no associated symptoms; Deny chest pain, dyspnea, headache(s), rash or vomiting Review of Systems Const: Denies: fever(s), chills or body aches Eyes: Denies: change in vision or blurry vision ENMT: Denies: throat pain or nasal congestion Card: Denies: chest pain or dyspnea on exertion Resp: Denies: dyspnea, productive cough or non-productive cough GI: Reports: abdominal pain (Last few days sent by provider for gallbladder ultrasound); Denies: vomiting, rectal pain, rectal swelling or rectal itching : Denies: difficulty urinating Musc: Denies: extremity pain Skin/Breast: Denies: rash Neuro: Denies: headache(s) Psych: Denies: anxiety or depression Abdulkadir/Lymph: Denies: easy bruising PFSH ED PFSH: Medical History Essential hypertension GERD (gastroesophageal reflux disease) HTN (hypertension) Hypothyroid Low testosterone GABBIE (obstructive sleep apnea) Osteoarthritis involving multiple joints on both sides of body Osteoarthritis of right hip Renal calculus, right Renal cyst, right Renal mass, right Surgical History H/O circumcision H/O detached retina repair History of cochlear implant History of uvulectomy Hx of umbilical hernia repair S/P cataract extraction Family History Grandmother Hypertension MATERNAL Other CAD (coronary artery disease) Stroke Denies family history of Diabetes Cancer Social History Smoking and tobacco status: never smoked Alcohol intake: never History of recent travel: No Physical Exam Const: COMMON NORMALS: no acute distress GENERAL APPEARANCE: cooperative Resp: COMMON NORMALS: normal respiratory effort Psych: COMMON NORMALS: mental status grossly normal Course Vital Signs: Vital signs: Vital Signs Temperature 97.7 F 03/02/21 11:18 Pulse Rate 87 03/02/21 11:18 Respiratory Rate 18 03/02/21 11:18 Blood Pressure 146/99 03/02/21 11:18 Pulse Oximetry 96 03/02/21 11:18 MDM - General Adult MDM Narrative: Medical decision making narrative: Brief history and physical exam was performed as part of the triage process. Due to current ED wait time patient will be placed in waiting room until a room becomes available. Explained to patient he/she will be seen in order of severity. Patient is currently safe to wait in the waiting room until we can get them placed. Patient informed that if condition worsens at any time to please let the front desk monitor know. Lab Data: Labs: Lab Results 03/02/21 03/02/21 03/02/21 12:43 12:43 14:17 WBC 7.0 10^3/uL 10^3/ uL (4.0-10.0) RBC 5.40 10^6/uL H 10 ^6/uL (4.1-5.3) Hgb 15.7 g/dL g/dL (11.7-16.6) Hct 47.9 % % (42.0-52.0) MCV 88.7 fl fl (80-94) MCH 29.1 pg pg (28.0-34.0) MCHC 32.8 g/dL g/dL (30.0-36.0) RDW 13.7 % % (12.1-15.1) Plt Count 251 10^3/cmm 10^3 /cmm (130-400) MPV 10.5 fL H fL (7.4-10.4) Neut % (Auto) 68.4 % % Lymph % (Auto) 19.9 % % Towns % (Auto) 9.6 % % Eos % (Auto) 0.9 % % Baso % (Auto) 0.9 % % Neut # (Auto) 4.80 10^3/uL 10^3 /uL (1.8-7.7) Lymph # (Auto) 1.4 10^3/uL 10^3/ uL (0.8-4.8) Towns # (Auto) 0.7 10^3/uL 10^3/ uL (0.2-0.9) Eos # (Auto) 0.1 10^3/uL 10^3/ uL (0.0-0.8) Baso # (Auto) 0.1 10^3/uL 10^3/ uL (0.0-0.1) Nucleated RBC % (a uto) 0 % % Nucleated RBCs # 0.0 /100WBC /100W BC Sodium 140 mmol/L mmol/L (136-145) Potassium 4.1 mmol/L mmol/L (3.5-5.1) Chloride 102 mmol/L mmol/L (98-107) Carbon Dioxide 26 mmol/L mmol/L (22-29) Anion Gap 16.1 (5-19) BUN 12 mg/dL mg/dL (6-20) Creatinine 0.8 mg/dL mg/dL (0.7-1.2) GFR Calculation 102.3 mL/min mL/m in (90-130) Glucose 97 mg/dL mg/dL (65-115) Calculated Osmolal ity 290 mOsm/kg mOsm/ kg (285-295) Calcium 8.7 mg/dL mg/dL (8.5-10.5) Total Bilirubin 1.2 mg/dL mg/dL (0.15-1.2) AST 50 U/L H U/L (0-40) ALT 69 U/L H U/L (0-41) Alkaline Phosphata se 104 IU/L IU/L (40-130) Total Protein 6.9 g/dL g/dL (6.6-8.7) Albumin 4.3 g/dL g/dL (3.5-5.2) Globulin 2.6 g/dL g/dL (1.3-4.6) Lipase 14 U/L U/L (13-60) Urine Color Yellow (Yellow) Urine Appearance Clear (CLEAR) Urine pH 8 H (5-7) Ur Specific Gravit y 1.010 (1.005-1.030) Urine Protein Neg (Negative) Urine Glucose (UA) Norm (Normal) Urine Ketones Negative (Negative) Urine Blood Neg (Negative) Urine Nitrate Negative (Negative) Urine Bilirubin Neg (Negative) Prot Sulfosalicyli c Acd Negative (Negative) Urine Urobilinogen 1 mg/dL H mg/dL (Negative) Ur Leukocyte Rosa ase Negative (Negative) Discharge Plan Discharge Patient Disposition: Home Clinical Impression: Cholelithiases Qualifiers: Cholelithiasis location: gallbladder Cholecystitis presence: without cholecystitis Biliary obstruction: without biliary obstruction Qualified Code(s): K80.20 - Calculus of gallbladder without cholecystitis without obstruction Condition: Stable Prescriptions: No Action (DME) syringe with needle [Easy Touch] 1 mL 25 gauge x 1 syringe See Rx Instructions .ROUTE .MEDSUPPLY Qty: 100 RF: 3 lisinopril 20 mg tablet 20 mg PO DAILY Qty: 90 RF: 2 carisoprodol [Soma] 350 mg tablet 350 mg PO BEDTIME 60 Days Qty: 60 RF: 1 testosterone cypionate [Depo-Testosterone] 200 mg/mL oil 150 mg IM .COMPLEX 90 Days Qty: 4 RF: 3 oxycodone-acetaminophen 7.5-325 mg tablet 1 tab PO Q8H PRN (Reason: pain) 30 Days Qty: 84 RF: 0 meloxicam 15 mg tablet 15 mg PO DAILY Qty: 30 RF: 3 Discharge Orders: Discharge ED (Routine); Ordered 03/02/21 Ordered By: Uriel Garrison Referrals: Tiffanie Coulter, LANCE [Primary Care Provider] - Discharge Diet: As Directed Discharge Activity: Increase activity as tolerated Patient Instructions: Gallstones (ED) Activity Restrictions/Additional Instructions: Follow-up with medical provider as directed. Take medications as prescribed. Return to the ER or your medical provider if condition worsens. Please read and understand discharge instructions. If any questions ask please. Hospital will contact with appointment for Dr. Camacho office Coding Level of Care Code ED Electromechanical Equipment Assembler for Sherifg Fwd Exam Expanded Problem Focused Documented by User: Andrew Ruiz DO 03/03/21 07:00 HPI - General Adult General: Chief complaint: Abdominal Pain Stated complaint: R ABD PAIN Time Seen by Provider: 03/02/21 14:35 PFS ED PFSH: Medical History Essential hypertension GERD (gastroesophageal reflux disease) HTN (hypertension) Hypothyroid Low testosterone GABBIE (obstructive sleep apnea) Osteoarthritis involving multiple joints on both sides of body Osteoarthritis of right hip Renal calculus, right Renal cyst, right Renal mass, right Surgical History H/O circumcision H/O detached retina repair History of cochlear implant History of uvulectomy Hx of umbilical hernia repair S/P cataract extraction Family History Grandmother Hypertension MATERNAL Other CAD (coronary artery disease) Stroke Denies family history of Diabetes Cancer Social History Smoking and tobacco status: never smoked Alcohol intake: never History of recent travel: No Course Vital Signs: Vital signs: Vital Signs Temperature 97.7 F 03/02/21 11:18 Pulse Rate 87 03/02/21 11:18 Respiratory Rate 18 03/02/21 11:18 Blood Pressure 146/99 03/02/21 11:18 Pulse Oximetry 96 03/02/21 11:18 MDM - General Adult MDM Narrative: Medical decision making narrative: Chart reviewed and patient discussed with midlevel. Agree with assessment and plan. Lab Data: Labs: Lab Results 03/02/21 03/02/21 03/02/21 12:43 12:43 14:17 WBC 7.0 10^3/uL 10^3/ uL (4.0-10.0) RBC 5.40 10^6/uL H 10 ^6/uL (4.1-5.3) Hgb 15.7 g/dL g/dL (11.7-16.6) Hct 47.9 % % (42.0-52.0) MCV 88.7 fl fl (80-94) MCH 29.1 pg pg (28.0-34.0) MCHC 32.8 g/dL g/dL (30.0-36.0) RDW 13.7 % % (12.1-15.1) Plt Count 251 10^3/cmm 10^3 /cmm (130-400) MPV 10.5 fL H fL (7.4-10.4) Neut % (Auto) 68.4 % % Lymph % (Auto) 19.9 % % Towns % (Auto) 9.6 % % Eos % (Auto) 0.9 % % Baso % (Auto) 0.9 % % Neut # (Auto) 4.80 10^3/uL 10^3 /uL (1.8-7.7) Lymph # (Auto) 1.4 10^3/uL 10^3/ uL (0.8-4.8) Towns # (Auto) 0.7 10^3/uL 10^3/ uL (0.2-0.9) Eos # (Auto) 0.1 10^3/uL 10^3/ uL (0.0-0.8) Baso # (Auto) 0.1 10^3/uL 10^3/ uL (0.0-0.1) Nucleated RBC % (a uto) 0 % % Nucleated RBCs # 0.0 /100WBC /100W BC Sodium 140 mmol/L mmol/L (136-145) Potassium 4.1 mmol/L mmol/L (3.5-5.1) Chloride 102 mmol/L mmol/L (98-107) Carbon Dioxide 26 mmol/L mmol/L (22-29) Anion Gap 16.1 (5-19) BUN 12 mg/dL mg/dL (6-20) Creatinine 0.8 mg/dL mg/dL (0.7-1.2) GFR Calculation 102.3 mL/min mL/m in (90-130) Glucose 97 mg/dL mg/dL (65-115) Calculated Osmolal ity 290 mOsm/kg mOsm/ kg (285-295) Calcium 8.7 mg/dL mg/dL (8.5-10.5) Total Bilirubin 1.2 mg/dL mg/dL (0.15-1.2) AST 50 U/L H U/L (0-40) ALT 69 U/L H U/L (0-41) Alkaline Phosphata se 104 IU/L IU/L (40-130) Total Protein 6.9 g/dL g/dL (6.6-8.7) Albumin 4.3 g/dL g/dL (3.5-5.2) Globulin 2.6 g/dL g/dL (1.3-4.6) Lipase 14 U/L U/L (13-60) Urine Color Yellow (Yellow) Urine Appearance Clear (CLEAR) Urine pH 8 H (5-7) Ur Specific Gravit y 1.010 (1.005-1.030) Urine Protein Neg (Negative) Urine Glucose (UA) Norm (Normal) Urine Ketones Negative (Negative) Urine Blood Neg (Negative) Urine Nitrate Negative (Negative) Urine Bilirubin Neg (Negative) Prot Sulfosalicyli c Acd Negative (Negative) Urine Urobilinogen 1 mg/dL H mg/dL (Negative) Ur Leukocyte Rosa ase Negative (Negative) Discharge Plan Discharge Patient Disposition: Home Clinical Impression: Cholelithiases Qualifiers: Cholelithiasis location: gallbladder Cholecystitis presence: without cholecystitis Biliary obstruction: without biliary obstruction Qualified Code(s): K80.20 - Calculus of gallbladder without cholecystitis without obstruction Condition: Stable Prescriptions: No Action (DME) syringe with needle [Easy Touch] 1 mL 25 gauge x 1 syringe See Rx Instructions .ROUTE .MEDSUPPLY Qty: 100 RF: 3 lisinopril 20 mg tablet 20 mg PO DAILY Qty: 90 RF: 2 carisoprodol [Soma] 350 mg tablet 350 mg PO BEDTIME 60 Days Qty: 60 RF: 1 testosterone cypionate [Depo-Testosterone] 200 mg/mL oil 150 mg IM .COMPLEX 90 Days Qty: 4 RF: 3 oxycodone-acetaminophen 7.5-325 mg tablet 1 tab PO Q8H PRN (Reason: pain) 30 Days Qty: 84 RF: 0 meloxicam 15 mg tablet 15 mg PO DAILY Qty: 30 RF: 3 Discharge Orders: Discharge ED (Routine); Ordered 03/02/21 Ordered By: Uriel Garrison Referrals: Tiffanie Coulter NP [Primary Care Provider] - Discharge Diet: As Directed Discharge Activity: Increase activity as tolerated Patient Instructions: Gallstones (ED) Activity Restrictions/Additional Instructions: Follow-up with medical provider as directed. Take medications as prescribed. Return to the ER or your medical provider if condition worsens. Please read and understand discharge instructions. If any questions ask please. Hospital will contact with appointment for Dr. Camacho office Coding Level of Care Code ED Electromechanical Equipment Assembler for Sherifg Fwd Exam Expanded Problem Focused
--- NOTE | 2021-03-02 13:55 | US_ITS ---
WS: [id number] RIGHT UPPER QUADRANT ULTRASOUND HISTORY: RUQ pain COMPARISON: 01/19/2020 Liver: 15.7 cm in length. Normal size liver. Very mild heterogeneity throughout the liver parenchyma. No mass identified. Portal Vein: Normal hepatopetal flow with monophasic waveform. Gallbladder: Large amount of shadowing from the henrique hepatis consistent with a stone filled gallblad lizy. CBD: 0.4 cm Pancreas: Poorly visualized due to gas. Right kidney: 12.0 cm in length. Normal size kidney. Exophytic cyst from the superior pole measures 1 .8 x 2.1 x 2.1 cm. Aorta and IVC: Unremarkable abdominal aorta and IVC. No ascites. US/US gall bladder [id number] IMPRESSION: 1. Stone filled gallbladder with a small amount of adjacent sludge. No Melendez' s sign. No bile duct dilatation. 2. Mildly heterogeneous liver. 3. RIGHT renal cyst.
[2021-03-02 14:34] LABS: Add Urine Microscopic? NO; Charge for UA Resulting for Rev
[2021-03-02 14:53] LABS: Bilirubin Urine Neg (Negative); Blood Urine Neg (Negative); Glucose Urine UA Norm (Normal); Ketones Urine Negative (Negative); Leukocyte Esterase Urine Negative (Negative); Nitrate Urine Negative (Negative); Protein Urine Neg (Negative); Sulfosalicylic Acid Urine Negative (Negative); Urine Appearance Clear (CLEAR); Urine Color Yellow (Yellow); Urobilinogen Urine 1 mg/dL (Negative); pH Urine 8 (5-7)
--- NOTE | 2021-03-03 11:20 | DCPLANNER ---
finance business manager had message to schedule a follow up appointment for patient with general surgery. Dr. Palma. finance business manager emailed patients information will be printed and reviewed. Clinic will call patient with appointment information.
--- NOTE | 2021-03-09 07:51 | DCPLANNER ---
Patient has a follow up appointment scheduled for Sunday, March 21, 2021 at 9:[address] Palma at [facility] General Surgery / ENT. Clinic will call patient with appointment information.
--- NOTE | 2021-03-29 08:32 | DCPLANNER ---
Addendum entered by Shannan Adler 04/08/21 07:30: Patient had a follow up appointment scheduled for 04.01.21 with general surgery - patient did attend appointment. Original Note: Patient had a follow up appointment scheduled for 03.21.21 - this appointment was rescheduled for 04.01.20.
== END 2021-03-02 15:24 | disposition home or self-care (01) ==
PROVIDERS: Emergency Provider Nurse Practitioner Family; PCP Nurse Practitioner Family
DX: K80.20 Calculus of gallbladder without cholecystitis without obstruction (principal); I10 Essential (primary) hypertension
CPT/HCPCS: 76705; 80053; 81003; 83690; 85025; 99282

== ENCOUNTER 2021-03-03 15:00 | Outpatient (CLI) | payer MEDICARE, MEDICAID, SELFPAY ==
[2021-03-03 15:47] LABS: Hematocrit 46.2 % (42.0-52.0); Hemoglobin 15.2 g/dL (11.7-16.6)
[2021-03-03 16:23] LABS: Testosterone Total 573.2 ng/dL (193-740)
[2021-03-08 14:14] LABS: IGF1 LC/MS 132 ng/mL (50-317); Z Score (Male) -0.1 SD (-2.0 - +2.0)
== END 2021-03-03 15:01 | disposition home or self-care (01) ==
LOC: LAB 15:08
PROVIDERS: PCP Nurse Practitioner Family; Visit Provider Nurse Practitioner
DX: E29.1 Testicular hypofunction (principal)
CPT/HCPCS: 84305; 84403; 85014; 85018

== ENCOUNTER → 2021-04-07 13:30 | Outpatient (BNVA) | payer MEDICARE, MEDICAID, SELFPAY | PROVIDERS: PCP Nurse Practitioner Family; Visit Provider Surgery | DX: Z01.818 Encounter for other preprocedural examination (principal); K80.20 Calculus of gallbladder without cholecystitis without obstruction | CPT/HCPCS: 87635 ==

== ENCOUNTER 2021-04-11 07:23 | Day surgery (SDC) | payer MEDICARE, MEDICAID, SELFPAY ==
[2021-04-08 12:20] VITALS: BMI 37.5
[2021-04-11] VITALS (14 sets, daily range): BP systolic 111–149; BP diastolic 62–101; PULSE 67–88; RESP 14–18; TEMP 36.2–37.1; O2SAT 91–96
--- NOTE | 2021-04-11 08:18 | W.PM.OPSFHP ---
Same Day Surgery H&P Indication for Procedure/HPI DATE OF PROCEDURE: April 11, 2021 CHIEF COMPLAINT/INDICATIONFOR SURGICAL PROCEDURE: Cholecystectomy PREOP DIAGNOSIS: Cholelithiasis PLANNED PROCEDURE: Operation Date: 04/11/21 09:00 Proposed Procedures p Laparoscopic Cholecystectomy(Not Applicable) - John Palma MD Medications/Allergies* Home Medications Medication Instructions Recorded Confirmed Type gabapentin 300 mg capsule 300 mg PO BID 04/01/21 04/11/21 History Allergies/Adverse Reactions Allergy/AdvReac Type Severity Reaction Status Date / Time diazepam AdvReac Mild DOESN'T Verified 04/01/21 14:03 FEEL RIGHT Iodinated Contrast Media AdvReac Mild SHORT OF Verified 04/01/21 14:03 BREATH Pertinent History/Comorbid Conditions* Medical History (Updated 04/01/21 @ 14:39 by John Palma MD) Essential hypertension GERD (gastroesophageal reflux disease) HTN (hypertension) Hypothyroid Low testosterone GABBIE (obstructive sleep apnea) Osteoarthritis involving multiple joints on both sides of body Renal calculus, right Renal cyst, right Surgical History (Updated 04/11/21 @ 08:18 by John Palma MD) H/O circumcision H/O detached retina repair History of cochlear implant History of colonoscopy 2019 History of uvulectomy Hx of umbilical hernia repair S/P cataract extraction Status post laparoscopic cholecystectomy (04/11/21) Family History (Updated 04/28/19 @ 09:51 by Adriana Carr LPN) CAD (coronary artery disease) Hypertension Grandmother MATERNAL Stroke Denies family history of Diabetes Cancer Social History Smoking and tobacco status: never smoked Alcohol intake: never History of recent travel: No Pertinent Exam Findings alert, oriented x 3 and regular rate & rhythm Recommendations Surgery/Procedure today Coding Level of Care Code Acute Timber 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
[2021-04-11] MEDS: sodium chloride 0.9% 1,000 ML 30 ML IV (08:20)
--- NOTE | 2021-04-11 08:35 | ANES.PREANE2 ---
Pre-Anesthetic Assessment Height/Weight: Height 1.7 m Weight 108.862 kg Temp Pulse Resp BP Pulse Ox 98.2 F 83 18 143/101 94 04/11/21 08:03 04/11/21 08:03 04/11/21 08:03 04/11/21 08:03 04/11/21 08:03 Preop Diagnosis: Cholelithiasis Operation Date: 04/11/21 09:00 Proposed Procedures p Laparoscopic Cholecystectomy(Not Applicable) - John Palma MD Familial anesthetic complications: none Was Beta Garima taken within 24 hours: N/A Was Clonidine taken within 24 hours: N/A Last intake: Intake Last Liquid Date 04/10/21 Last Liquid Time 22:00 Last Solid Date 04/10/21 Last Solid Time 22:00 Social No alcohol and No tobacco Airway Mallampati: Class III Dentition: chipped Pulmonary Sleep Apnea CV/HEM Stable Angina and Hypertension 02/05/20 Stress test CONCLUSION: 1. Exercise capacity poor. 2. Heart rate response was appropriate. 3. Blood pressure response was hypertensive. 4. Symptoms not suggestive of ischemia. 5. Electrocardiogram portion of the stress test was not suggestive of ischemia. 6. Nuclear scan will be documented separately. Neuropsych Neuropathy Anesthetic Plan ASA status: 3 Anesthesia: General Medications/Allergies Home Medications Medication Instructions Recorded Confirmed Last Taken Type syringe with needle 1 mL 25 gauge #100 ea 04/23/20 04/01/21 Unknown Rx x 1 (Easy Touch) lisinopril 20 mg tablet 20 mg PO DAILY #90 tab 06/16/20 04/11/21 04/10/21 Rx testosterone cypionate 200 mg/mL 150 mg (0.75 mL) IM .COMPLEX 90 07/06/20 04/11/21 03/29/21 Rx intramuscular oil Days #4 ml (Depo-Testosterone) meloxicam 15 mg tablet 15 mg PO DAILY #30 tab 11/05/20 04/11/21 04/10/21 Rx gabapentin 300 mg capsule 300 mg PO BID 04/01/21 04/11/21 04/11/21 History hydrocodone 5 mg-acetaminophen 325 1 tab PO Q6H PRN #20 tab 04/11/21 Unknown Rx mg tablet Allergies Allergy/AdvReac Type Severity Reaction Status Date / Time diazepam AdvReac Mild DOESN'T Verified 04/01/21 14:03 FEEL RIGHT Iodinated Contrast Media AdvReac Mild SHORT OF Verified 04/01/21 14:03 BREATH Current Medications Generic Name Dose Route Start Last Admin Trade Name Parvez PRN Reason Stop Dose Admin Sodium Chloride 1,000 mls @ 30 mls/hr 04/11/21 08:00 04/11/21 08:20 Sodium Chloride 0.9% IV 04/12/21 07:59 30 mls/hr .Q24H EDMOND Administration PFSH Anesthesia Medical History Essential hypertension GERD (gastroesophageal reflux disease) HTN (hypertension) Hypothyroid Low testosterone GABBIE (obstructive sleep apnea) Osteoarthritis involving multiple joints on both sides of body Renal calculus, right Renal cyst, right Surgical History (Updated 04/11/21 @ 08:18 by John Palma MD) H/O circumcision H/O detached retina repair History of cochlear implant History of colonoscopy 2020 History of uvulectomy Hx of umbilical hernia repair S/P cataract extraction Status post laparoscopic cholecystectomy (04/11/21) Family History Grandmother Hypertension MATERNAL Other CAD (coronary artery disease) Stroke Denies family history of Diabetes Cancer Social History Smoking and tobacco status: never smoked Alcohol intake: never History of recent travel: No Data Anesthesia Cardiac Studies: Sestamibi Stress Test (Cardiology) 01/26/20 Cardiac Event Monitor 12/26/19
--- NOTE | 2021-04-11 10:22 | P.OP_ITS ---
Operative Report Date of procedure: April 11, 2021 Pre-op diagnosis: Cholelithiasis Post-op diagnosis: same Procedure done: Laparoscopic cholecystectomy Specimens removed/disposition: Gallbladder Surgeon: John Palma Anesthesia: General Condition: stable Disposition: PACU Procedure: The patient was taken to the operating room and was intubated under general anesthesia. After the antibiotic had been administered, the abdomen was prepped and draped in a sterile manner. Using a #15 blade, a 1 centimeter infraumbilical curvilinear incision was made and using an open Isaak technique the peritoneal cavity was entered. A 10 millimeter port was placed and 15 millimeters of pneumoperitoneum was created. A 10 millimeter, 30 degrees scope was then introduced. Three 5 millimeter ports were placed in the epigastric, midclavicular and the anterior axillary line two fingerbreadths below the costal margin on the right side under the direct visualization. Ratcheted forceps were introduced into the lateral most port and was used to retract the fundus of the gallbladder cephalad and using forceps the infundibulum of the gallbladder was retracted laterally. Using L-hook cautery the peritoneum overlying the Calot's triangle was opened medially and laterally until the cystic duct and the cystic artery were skeletonized. Dissection was carried along the body of the gal lbladder and after ensuring critical view of safety, 4 clips applied on the cystic duct and 3 clips applied on the anterior and posterior branch of the cystic artery and cut leaving, 3 clips on the remaining portion of the duct and 2 clips on the remaining portion of the anterior and posterior branch of the artery. The rest of the gallbladder was dissected off the liver using L-hook cautery. There was no bleeding or bile leaking noted from the gallbladder fossa and the clips appeared to be in place. An EndoCatch bag was introduced to remove the gallbladder. All the ports were removed under direct visualization and there was no bleeding noted from the port sites. The fascia of the umbilicus was closed using [id number] 0 Vicryl sutures and the subcutaneous tissue was approximated using 3-0 Vicryl sutures. The skin at all four ports were closed using 4-0 Monocryl and Dermabond. A total of 10 millimeters of 0.5% Marcaine was infiltrated around the port sites. The patient was stable throughout the procedure.
[2021-04-11] MEDS: fentaNYL 50 mcg/mL INJ 2mL IVP ×2 (10:28→10:44)
[2021-04-11] MEDS: HYDROmorphone 1 mg/mL INJ 1 mL 0.5 MG IVP ×2 (10:55→11:10)
[2021-04-11] MEDS: HYDROcodone-acetaminophen 5-325 mg Tablet 1 TAB PO (11:52)
--- NOTE | 2021-04-11 13:45 | ANE.PACU2 ---
Inpatient post-anesthesia follow up: Airway intact: No Vital signs: Temperature 97.2 F Pulse Rate 78 Respiratory Rate 16 Blood Pressure 126/89 Pulse Oximetry 94 Oxygen Delivery Me thod Nasal Cannula Oxygen Flow Rate 2 Fraction of Inspir ed Oxygen Hydration adequate: No Nausea and vomiting: No Pain level: 1 Mental status: Baseline
== END 2021-04-11 12:07 | disposition home or self-care (01) ==
PROVIDERS: PCP Nurse Practitioner Family; Visit Provider Surgery
PROC: 0FT44ZZ Resection of Gallbladder, Percutaneous Endoscopic Approach (ICD-10-PCS; CPT 47562; principal; 2021-04-11 09:00)
DX: K81.1 Chronic cholecystitis (principal); G47.30 Sleep apnea, unspecified; I10 Essential (primary) hypertension; K21.9 Gastro-esophageal reflux disease without esophagitis; E03.9 Hypothyroidism, unspecified; G47.33 Obstructive sleep apnea (adult) (pediatric)
CPT/HCPCS: 47562; 88304; J0690; J1100; J1170; J2250; J2370; J2405; J2704; J2710; J3010; J3490; J7030

== ENCOUNTER 2021-07-07 17:20 | Outpatient (CLI) | payer MEDICARE, MEDICAID, SELFPAY ==
[2021-07-07 17:52] LABS: Hematocrit 48.3 % (42.0-52.0); Hemoglobin 15.8 g/dL (11.7-16.6)
[2021-07-07 21:38] LABS: Testosterone Total 290.8 ng/dL (193-740)
[2021-07-12 11:02] LABS: IGF1 LC/MS 125 ng/mL (50-317); Z Score (Male) -0.3 SD (-2.0 - +2.0)
== END 2021-07-07 17:21 | disposition home or self-care (01) ==
PROVIDERS: PCP Nurse Practitioner Family; Visit Provider Nurse Practitioner
DX: E29.1 Testicular hypofunction (principal)
CPT/HCPCS: 36415; 84305; 84403; 85014; 85018

== ENCOUNTER 2021-07-28 09:05 | Outpatient (CLI) | payer MEDICARE, MEDICAID, SELFPAY ==
--- NOTE | 2021-07-28 09:19 | XR_ITS ---
WS: [id number] Right elbow, AP and lateral views, 07/28/2021 Clinical Data: R ELBOW PAIN Comparison: None. Findings: No fractures or dislocations are seen. The radial head is normal. The soft tissues are unremarkable. XR/XR elbow RT 2V [id number] Impression: Negative right elbow.
== END 2021-07-28 09:06 | disposition home or self-care (01) ==
PROVIDERS: PCP Nurse Practitioner Family; Visit Provider General Practice
DX: M25.521 Pain in right elbow (principal)
CPT/HCPCS: 73070

== ENCOUNTER 2021-08-10 16:51 | Emergency (ER) | payer MEDICARE, MEDICAID, SELFPAY ==
[2021-08-10 17:12] VITALS: BP 131/91; PULSE 84; RESP 16; TEMP 36.9; O2SAT 20; BMI 37.3
--- NOTE | 2021-08-10 17:17 | ED_ITS ---
HPI - Extremity Problem General: Chief complaint: Extremity Injury, Lower Stated complaint: Right Ankle or leg injury Time Seen by Provider: 08/10/21 17:16 History of Present Illness: 50-year-old male patient was walking down the stairs today and slipped when his ankle turned on him. Patient reports significant pain and discomfort which caused him to feel like he was going to pass out. Patient has some obvious lateral swelling to the ankle. No obvious dislocation. Patient has a history of pituitary disease, low testosterone, low vitamin D, chronic back pain, renal cyst, hypertension, osteoarthritis. Associated symptoms: Deny chest pain, fever(s) or rash Review of Systems General: Reports: 10 or more systems reviewed and unremarkable except in HPI and below Const: Denies: fever(s) Card: Denies: chest pain Resp: Denies: dyspnea GI: Denies: nausea : Denies: difficulty urinating Musc: Reports: back pain, extremity pain and extremity swelling Skin/Breast: Denies: rash PFSH ED PFSH: Medical History Essential hypertension GERD (gastroesophageal reflux disease) HTN (hypertension) Hypothyroid Low testosterone GABBIE (obstructive sleep apnea) Osteoarthritis involving multiple joints on both sides of body Renal calculus, right Renal cyst, right Surgical History H/O circumcision H/O detached retina repair History of cochlear implant History of colonoscopy 2020 History of uvulectomy Hx of umbilical hernia repair S/P cataract extraction Status post laparoscopic cholecystectomy (04/11/21) Family History Grandmother Hypertension MATERNAL Other CAD (coronary artery disease) Stroke Denies family history of Diabetes Cancer Social History Smoking and tobacco status: never smoked Alcohol intake: never History of recent travel: No Physical Exam Const: COMMON NORMALS: alert HENMT: COMMON NORMALS: normocephalic HEAD & SCALP: normocephalic Neck/C-Spine: COMMON NORMALS: full ROM Chest: COMMONS NORMALS: normal palpation of entire chest wall Resp: COMMON NORMALS: normal respiratory effort Cardio: COMMON NORMALS: regular rate RATE: regular rate GI: COMMON NORMALS: non-tender Back/Pelvis: THORACIC SPINE/UPPER BACK: No thoracic spinal tenderness LUMBAR SPINE/LOWER BACK: No lumbar spinal tenderness and Yes paraspinal muscle tenderness Extremity: RIGHT LOWER EXTREMITY: Yes foot & digits (Lateral right ankle swelling, pulses intact, decreased range of motion) Right ankle: Yes inspection, Yes palpation and Yes ROM Neuro: SENSORIUM/ORIENTATION: Yes alert Skin: COMMON NORMALS: no rashes or lesions noted GENERAL SKIN EXAM: no rashes or lesions noted Course Vital Signs: Vital signs: Vital Signs Temperature 98.5 F 08/10/21 17:12 Pulse Rate 84 08/10/21 17:12 Respiratory Rate 16 08/10/21 17:12 Blood Pressure 131/91 08/10/21 17:12 Pulse Oximetry 20 L 08/10/21 17:12 MDM - Extremity (Nontraumatic) Medical Decision Making Patient came in for evaluation of injury to the right ankle. Patient also reported some low back pain. Patient had slipped on the stairs and injured his right ankle. Patient does have a history of chronic back problems. On exam patient has some tenderness in the musculature of the back but no spinal tenderness. Patient does have some obvious swelling to the lateral right ankle. Differential diagnosis includes fall, ankle fracture, lumbar fracture, bruising, sprain. X-ray of the lumbar spine and of the ankle indicated no acute fractures. Reviewed exam with patient with recommendations for treatment and follow-up for ankle sprain and contusions. patient reported understanding and agreed to plan. Discharge Plan Discharge Patient Disposition: Home Clinical Impression: Right ankle sprain Qualifiers: Encounter type: initial encounter Involved ligament of ankle: unspecified ligament Qualified Code(s): S93.401A - Sprain of unspecified ligament of right ankle, initial encounter Condition: Stable Prescriptions: New hydrocodone-acetaminophen 5-325 mg tablet 1 tab PO Q6H PRN (Reason: pain (scale score 7-10)) Qty: 7 0RF No Action gabapentin 300 mg capsule 300 mg PO BID 0RF (DME) syringe with needle [Easy Touch] 1 mL 25 gauge x 1 syringe See Rx Instructions .ROUTE .MEDSUPPLY Qty: 100 3RF Rx Instructions: As directed lisinopril 20 mg tablet 20 mg PO DAILY Qty: 90 2RF testosterone cypionate [Depo-Testosterone] 200 mg/mL oil 150 mg IM .COMPLEX 90 Days Qty: 4 3RF Rx Instructions: 150 mg IM [id number]; meloxicam 15 mg tablet 15 mg PO DAILY Qty: 30 3RF hydrocodone-acetaminophen 5-325 mg tablet 1 tab PO Q6H PRN (Reason: pain) Qty: 20 0RF Zofran 4 mg tablet 4 mg PO Q6H PRN (Reason: nausea and vomiting) Qty: 20 0RF Colace 100 mg capsule 100 mg PO BID Qty: 30 0RF Discharge Orders: Discharge ED (Routine); Ordered 08/10/21 Ordered By: Juan Gomez Referrals: Tiffanie Coulter NP [Primary Care Provider] - Discharge Diet: Usual diet Discharge Activity: Increase activity as tolerated Patient Instructions: Ankle Sprain (ED), Opioid Safety Activity Restrictions/Additional Instructions: Elevation and ice ankle for next 2 days. Use acetaminophen and ibuprofen for pain. Drink plenty of water with medication. Use hydrocodone for severe pain. Follow-up with primary care in 2 to 3 days for recheck. Most often the ankle pain may be worse for 2 to 3 days and then should start showing improvement. Return to ER for new concerns. 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
--- NOTE | 2021-08-10 17:20 | XRR_ITS ---
PROCEDURE INFORMATION: Exam: XR Right Ankle Exam date and time: 08/10/2021 5:35 PM Age: 50 years old Clinical indication: Pain; Ankle; Right; Additional info: Fall injury TECHNIQUE: Imaging protocol: XR Right ankle. Views: 3 or more views. COMPARISON: No relevant prior studies available. FINDINGS: Bones/joints: Normal. Soft tissues: Lateral soft tissue swelling. XR/XR ankle RT min 3V* [id number] IMPRESSION: No fracture identified.
--- NOTE | 2021-08-10 17:20 | XRR_ITS ---
PROCEDURE INFORMATION: Exam: XR Lumbosacral Spine Exam date and time: 08/10/2021 5:37 PM Age: 50 years old Clinical indication: Low back pain; Additional info: Fall injury TECHNIQUE: Imaging protocol: XR of the lumbosacral spine. Views: 2 or 3 views. COMPARISON: CR XR hip RT 2-3V wo/w pel* [id number] 02/02/2020 1:34 PM FINDINGS: Bones/joints: The vertebral body alignment and stature is intact. No fracture or of subluxation. Soft tissues: Unremarkable. Intraperitoneal space: Cholecystectomy clips. XR/XR lumbar spine 2-3V* [id number] IMPRESSION: No acute finding.
[2021-08-10] MEDS: HYDROcodone-acetaminophen 7.5-325 mg Tablet 1 TAB PO (17:49)
[2021-08-10 18:35] VITALS: RESP 16
== END 2021-08-10 18:37 | disposition home or self-care (01) ==
PROVIDERS: Emergency Provider Nurse Practitioner Family; PCP Nurse Practitioner Family
DX: S93.401A Sprain of unspecified ligament of right ankle, initial encounter (principal); M54.50 Low back pain, unspecified; W10.9XXA Fall (on) (from) unspecified stairs and steps, initial encounter
CPT/HCPCS: 72100; 73610; 99283; E0114

== ENCOUNTER 2021-08-11 14:56 | Outpatient (CLI) | payer MEDICARE, MEDICAID, SELFPAY ==
--- NOTE | 2021-08-11 | CT_ITS ---
WS: [id number] CT LUMBAR SPINE TECHNIQUE: Noncontrast CT of the lumbar spine with coronal and sagittal reformatted images. CLINICAL INFORMATION: Other intervertebral disc degeneration, lumbar region. COMPARISON: 2016 DLP: [id number] scans at [facility] use at least one of these dose optimization techniques: automated e xposure control; mA and/or kV adjustment per patient size (includes targeted exams where dose is matc hed to clinical indication); or iterative reconstruction. FINDINGS: Minimal lumbar curve. No acute compression. No anterolisthesis. No visualized pars defects. No high-g rade central canal stenosis. L1-L2: Normal. L2-L3: Mild annular bulging with slight narrowing of the LEFT subarticular recess. LEFT eccentric dis c bulging with mild LEFT foraminal narrowing at this level. RIGHT foramen is patent. Slight narrowing of the LEFT subarticular recess. This appears progressed compared to previous L3-L4: Mild annular bulging with slight effacement of ventral thecal sac. Slight narrowing of the LEF T subarticular recess. Mild LEFT eccentric disc bulging with mild LEFT foraminal narrowing. This is s imilar in appearance to previous. L4-L5: Mild annular bulging with slight effacement of ventral thecal sac. Slight impingement traversi ng LEFT L5 nerve root. Mild LEFT foraminal narrowing. Mild facet arthropathy. This appears progressed compared to previous. L5-S1: Mild facet arthropathy. Spinal canal and foramen are patent. Adrenal glands are normal. RIGHT renal cysts. CT/CT lumbar spine wo con* [id number] IMPRESSION: 1. Mild lumbar curve. No acute compression. No high-grade central canal stenos is. 2. Mild annular bulging with slight narrowing of the LEFT subarticular recess. LEFT eccentric disc bulging with mild LEFT foraminal narrowing at this level.T his appears progressed compared to previous 3. Narrowing of the LEFT subarticular recess L3-L4. Mild LEFT eccentric disc b ulging with mild LEFT foraminal narrowing. This is similar in appearance to pre vious. 4. Mild annular bulging with slight effacement of ventral thecal sac. Slight i mpingement traversing LEFT L5 nerve root. Mild LEFT foraminal narrowing. This a ppears progressed compared to previous.
== END 2021-08-11 14:57 | disposition home or self-care (01) ==
LOC: RAD 14:59
PROVIDERS: PCP Nurse Practitioner Family; Visit Provider General Practice
DX: M51.36 Other intervertebral disc degeneration, lumbar region (principal)
CPT/HCPCS: 72131

== ENCOUNTER 2021-08-15 13:28 | Outpatient (CLI) | payer MEDICARE, MEDICAID, SELFPAY ==
[2021-08-15 14:05] LABS: Basophils % 0.7 %; Eosinophils # 0.1 10^3/uL (0.0-0.8); Eosinophils % 1.8 %; Hematocrit 48.5 % (42.0-52.0); Hemoglobin 15.8 g/dL (11.7-16.6); Lymphocytes # 1.6 10^3/uL (0.8-4.8); Lymphocytes % 27.2 %; Mean Corpuscular HGB Conc 32.6 g/dL (30.0-36.0); Mean Corpuscular Hemoglobin 29.5 pg (28.0-34.0); Mean Corpuscular Volume 90.7 fl (80-94); Mean Platelet Volume 10.8 fL (7.4-10.4); Monocytes # 0.5 10^3/uL (0.2-0.9); Monocytes % 9.3 %; Neutrophils # 3.46 10^3/uL (1.8-7.7); Neutrophils % 60.6 %; Nucleated Red Blood Cells % 0 %; Platelet Count 261 10^3/cmm (130-400); Red Blood Count 5.35 10^6/uL (4.1-5.3); Red Cell Distribution Width 13.1 % (12.1-15.1); White Blood Count 5.7 10^3/uL (4.0-10.0)
[2021-08-15 14:36] LABS: Alanine Aminotransferase 24 U/L (0-41); Albumin Level 4.6 g/dL (3.5-5.2); Alkaline Phosphatase 93 IU/L (40-130); Anion Gap 13.1 (5-19); Aspartate Amino Transferase 22 U/L (0-40); Blood Urea Nitrogen 17 mg/dL (6-20); Calcium 9.2 mg/dL (8.5-10.5); Carbon Dioxide 27 mmol/L (22-29); Chloride 101 mmol/L (98-107); Chol HDL Ratio 4.25 mg/dL (1.0-5.00); Cholesterol 187 mg/dL (0-200); Globulin 2.5 g/dL (1.3-4.6); Glomerular Filtration Rate 102.3 mL/min (90-130); Glucose 100 mg/dL (65-115); HDL Cholesterol 44 mg/dL (60-100); LDL Cholesterol Calculated 120 mg/dL (50-129); LDL HDL Ratio 2.73 RATIO (0.00-3.22); Osmolality Calculated 286 mOsm/kg (285-295); Potassium 4.1 mmol/L (3.5-5.1); Sodium 137 mmol/L (136-145); Thyroid Stimulating Hormone 1.15 uIU/mL (0.27-4.20); Total Bilirubin 1.1 mg/dL (0.15-1.2); Total Protein 7.1 g/dL (6.6-8.7); Triglycerides 116 mg/dL (0-150)
[2021-08-15 14:47] LABS: Creatinine Urine, Random 358 mg/dL (39-259); Microalbum Creatinine Ratio Ur 3 mg/dL (0-20); Microalbumin Random Urine 1 ug/dL (0-20)
[2021-08-15 14:56] LABS: Free T4 Free Thyroxine 1.14 ng/dL (0.82-1.77)
== END 2021-08-15 13:29 | disposition home or self-care (01) ==
LOC: LAB 13:33
PROVIDERS: PCP Nurse Practitioner Family; Visit Provider Nurse Practitioner Family
DX: I10 Essential (primary) hypertension (principal)
CPT/HCPCS: 36415; 80053; 80061; 82044; 84439; 84443; 85025

== ENCOUNTER 2021-08-26 13:43 | Outpatient (CLI) | payer MEDICARE, MEDICAID, SELFPAY ==
[2021-08-26 14:30] LABS: Basophils # 0.1 10^3/uL (0.0-0.1); Eosinophils # 0.1 10^3/uL (0.0-0.8); Eosinophils % 1.7 %; Hematocrit 47.7 % (42.0-52.0); Lymphocytes # 1.3 10^3/uL (0.8-4.8); Lymphocytes % 23.2 %; Mean Corpuscular HGB Conc 33.5 g/dL (30.0-36.0); Mean Corpuscular Hemoglobin 29.2 pg (28.0-34.0); Mean Platelet Volume 10.6 fL (7.4-10.4); Monocytes # 0.6 10^3/uL (0.2-0.9); Monocytes % 9.9 %; Neutrophils # 3.68 10^3/uL (1.8-7.7); Neutrophils % 63.9 %; Nucleated Red Blood Cells % 0 %; Platelet Count 264 10^3/cmm (130-400); Red Blood Count 5.48 10^6/uL (4.1-5.3); Red Cell Distribution Width 13.2 % (12.1-15.1); White Blood Count 5.8 10^3/uL (4.0-10.0)
[2021-08-26 15:00] LABS: Prostate Specific Antigen 0.675 ng/mL (0-4); Testosterone Total 493.8 ng/dL (193-740)
[2021-08-26 15:39] LABS: Hepatitis A Antibody IgM Non-Reactive (Nonreactive); Hepatitis B Core AB, Total Non-Reactive (Nonreactive); Hepatitis B Surface AB 353.8 (11.5-1000); Hepatitis B Surface Antigen Non-Reactive (Nonreactive); Hepatitis C Virus Antibody Non-Reactive (Nonreactive)
== END 2021-08-26 13:44 | disposition home or self-care (01) ==
LOC: LAB 14:09
PROVIDERS: PCP Nurse Practitioner Family; Visit Provider Urology
DX: E29.1 Testicular hypofunction (principal); Z12.5 Encounter for screening for malignant neoplasm of prostate; N20.0 Calculus of kidney
CPT/HCPCS: 84153; 84403; 85025; 86705; 86706; 86709; 86803; 87340

== ENCOUNTER 2021-09-06 06:00 | Outpatient (RCR) | payer MEDICARE, MEDICAID, SELFPAY | END 2021-09-08 23:59 | disposition home or self-care (01) | LOC: SOT 06:00 | PROVIDERS: PCP Nurse Practitioner Family; Referring Provider Nurse Practitioner Family; Visit Provider Nurse Practitioner Family | DX: M77.11 Lateral epicondylitis, right elbow (principal) | CPT/HCPCS: 97110; 97140; 97166 ==

== ENCOUNTER 2021-09-09 06:00 | Outpatient (RCR) | payer MEDICARE, MEDICAID, SELFPAY | END 2021-10-09 23:59 | disposition home or self-care (01) | LOC: SOT 06:00 | PROVIDERS: PCP Nurse Practitioner Family; Referring Provider Nurse Practitioner Family; Visit Provider Nurse Practitioner Family | DX: S93.401D Sprain of unspecified ligament of right ankle, subsequent encounter (principal) | CPT/HCPCS: 97035; 97110; 97140 ==

== ENCOUNTER 2021-09-26 06:00 | Outpatient (RCR) | payer MEDICARE, MEDICAID, SELFPAY | END 2021-10-09 23:59 | disposition home or self-care (01) | LOC: SPT 06:00 | PROVIDERS: PCP Nurse Practitioner Family; Referring Provider Nurse Practitioner Family; Visit Provider Nurse Practitioner Family | DX: S93.401D Sprain of unspecified ligament of right ankle, subsequent encounter (principal); X58.XXXD Exposure to other specified factors, subsequent encounter | CPT/HCPCS: 97110; 97161 ==

== ENCOUNTER 2021-10-10 06:00 | Outpatient (RCR) | payer MEDICARE, MEDICAID, SELFPAY | END 2021-11-09 23:59 | disposition home or self-care (01) | LOC: SPT 06:00 | PROVIDERS: PCP Nurse Practitioner Family; Visit Provider Nurse Practitioner Family | DX: S93.401D Sprain of unspecified ligament of right ankle, subsequent encounter (principal); X58.XXXD Exposure to other specified factors, subsequent encounter | CPT/HCPCS: 97110 ==

== ENCOUNTER 2021-10-10 06:00 | Outpatient (RCR) | payer MEDICARE, MEDICAID, SELFPAY | END 2021-11-09 23:59 | disposition home or self-care (01) | LOC: SOT 06:00 | PROVIDERS: PCP Nurse Practitioner Family; Referring Provider Nurse Practitioner Family; Visit Provider Nurse Practitioner Family | DX: M77.11 Lateral epicondylitis, right elbow (principal) | CPT/HCPCS: 97035; 97110; 97140 ==

== ENCOUNTER 2021-12-17 17:30 | Emergency (ER) | payer MEDICARE, MEDICAID, SELFPAY ==
[2021-12-17 18:14] VITALS: BP 131/91; PULSE 82; RESP 16; TEMP 36.6; O2SAT 96; BMI 39.1
--- NOTE | 2021-12-17 19:23 | W.ED.BACK ---
HPI - Back Pain/Injury General: Chief Complaint: Back Pain/Injury Stated Complaint: back pain Time Seen by Provider: 12/17/21 18:45 History of Present Illness: Patient is a 51-year-old male comes to the ED with back pain. Patient has chronic lower back pain. Symptoms occurred earlier today. Patient says he bent over to pick a bag of chicken felt a strain in his lower back. He rates his pain currently a 9 out of 10. He says his pain radiates down into his thighs bilaterally. Denies any cauda equina symptoms. Associated symptoms: Deny abdominal pain, chills, dysuria, fatigue, fever(s), hematuria, nausea or vomiting Review of Systems Const: Denies: fever(s), chills or fatigue Eyes: Denies: change in vision or eye discomfort ENMT: Denies: throat pain, odynophagia, nasal discharge or nasal congestion Card: Denies: chest pain, palpitations, edema, swelling of feet/ankles, dyspnea on exertion or orthopnea Resp: Denies: dyspnea, productive cough or non-productive cough GI: Denies: abdominal pain, nausea, vomiting, diarrhea, constipation or hematochezia : Denies: flank pain, difficulty urinating, dysuria or hematuria Musc: Reports: back pain; Denies: neck pain or extremity swelling Skin/Breast: Denies: rash or new lesions Neuro: Denies: headache(s), numbness in extremities or weakness in extremities PFS ED PFSH: Medical History Essential hypertension GERD (gastroesophageal reflux disease) HTN (hypertension) Hypothyroid Low testosterone GABBIE (obstructive sleep apnea) Osteoarthritis involving multiple joints on both sides of body Renal calculus, right Renal cyst, right Surgical History H/O circumcision H/O detached retina repair History of cochlear implant History of colonoscopy 2020 History of uvulectomy Hx of umbilical hernia repair S/P cataract extraction Status post laparoscopic cholecystectomy (04/11/21) Family History Grandmother Hypertension MATERNAL Other CAD (coronary artery disease) Stroke Social History Smoking and tobacco status: never smoked Alcohol intake: never History of recent travel: No Physical Exam Const: COMMON NORMALS: no acute distress, patient oriented x3 and alert GENERAL APPEARANCE: cooperative and comfortable HENMT: COMMON NORMALS: normocephalic HEAD & SCALP: normocephalic MOUTH: Normal oral and palatal mucosa present THROAT: posterior oropharynx normal and uvula midline Eye: GENERAL EYE: appearance normal, both eyes and all related structures Neck/C-Spine: COMMON NORMALS: supple GENERAL: Yes normal visual inspection Resp: COMMON NORMALS: normal respiratory effort, No retractions, No use of accessory muscles and clear to auscultation bilaterally AUSCULTATION: clear to auscultation bilaterally Cardio: COMMON NORMALS: regular rate, regular rhythm, S1 normal heart sound present, S2 normal heart sound present, No gallops present (Cardio), No clicks present (Cardio), No murmurs present (Cardio) and Peripheral pulses 2+ throughout RATE: regular rate RHYTHM: regular rhythm HEART SOUNDS: S1 normal heart sound present and S2 normal heart sound present PERIPHERAL PULSES: Peripheral pulses 2+ throughout GI: COMMON NORMALS: Normal to inspection, nondistended, normoactive bowel sounds present, Soft to palpation, non-tender and no masses PALPATION: Yes Soft to palpation : COMMON NORMALS: Yes no CVA tenderness BLADDER/KIDNEY EXAM: Yes no CVA tenderness Back/Pelvis: COMMON NORMALS: no CVA tenderness Extremity: COMMON NORMALS: normal to inspection Neuro: COMMON NORMALS: patient oriented x3 SENSORIUM/ORIENTATION: Yes alert GAIT: Yes Normal gait present Skin: GENERAL SKIN EXAM: dry skin Course Vital Signs: Vital signs: Vital Signs Temperature 97.9 F 12/17/21 18:14 Pulse Rate 82 12/17/21 18:14 Respiratory Rate 16 12/17/21 18:14 Blood Pressure 131/91 12/17/21 18:14 Pulse Oximetry 96 12/17/21 18:14 Oxygen Delivery Me thod 12/17/21 18:14 MDM - Back Pain/Injury Medical Decision Making Patient is a 51-year-old male who has acute on chronic lower back pain. 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 Denies any cauda equina symptoms. No spinal tenderness upon palpation. Patient appears nontoxic and in no acute distress or pain. Patient was given dose of Toradol, Norflex on Decadron here in the ED. He was told to follow-up with his PCP in the next week for reevaluation. He was diagnosed with low back pain discharged home with a prescription for Celebrex, muscle relaxer and steroid. Patient understood and agreed with plan. Discharge Plan Discharge Patient Disposition: Home Clinical Impression: Low back pain Qualifiers: Chronicity: unspecified Back pain laterality: bilateral Sciatica presence: unspecified whether sciatica present Qualified Code(s): M54.50 - Low back pain, unspecified Condition: Stable Prescriptions: New Celebrex 100 mg capsule 100 mg PO BID PRN (Reason: pain) Qty: 20 0RF cyclobenzaprine 10 mg tablet 10 mg PO BID PRN (Reason: muscle spasm) Qty: 20 0RF prednisone 20 mg tablet 20 mg PO BID 5 Days Qty: 10 0RF No Action gabapentin 300 mg capsule 300 mg PO BID diclofenac sodium 75 mg tablet,delayed release (DR/EC) PO ciclopirox 0.77 % cream 1 applic topical BID Qty: 30 2RF Rx Instructions: apply to face 1-2 x daily x 4 weeks then prn (DME) syringe with needle [Easy Touch] 1 mL 25 gauge x 1 syringe See Rx Instructions .ROUTE .MEDSUPPLY Qty: 100 3RF Rx Instructions: As directed lisinopril 20 mg tablet 20 mg PO DAILY Qty: 90 2RF testosterone cypionate [Depo-Testosterone] 200 mg/mL oil 150 mg IM .COMPLEX 90 Days Qty: 4 3RF Rx Instructions: 150 mg IM [id number]; Discharge Orders: Discharge ED (Routine); Ordered 12/17/21 Ordered By: Gigi Motley Discharge Diet: Regular Discharge Activity: Increase activity as tolerated Patient Instructions: Low Back Strain (ED), Back Pain (ED) Activity Restrictions/Additional Instructions: Follow-up with medical provider as directed in the next 7 to 10 days for reevaluation. Take medications as prescribed. Apply cold pack on lower back to help with symptoms. Stretch low back muscles daily. Return to the ER or your medical provider if condition worsens. Please read and understand discharge instructions. Thank you for choosing [facility] for your healthcare needs today. Please realize this is an emergency room and that we are providing you with a medical screening exam and this may not be complete and all inclusive of all the testing and or work up that you may need to determine your ailment or severity of your illness. It is very important that you follow up as instructed or that you return to the Emergency Department should you have concerns or if your condition changes or worsens in any way. 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
[2021-12-17] MEDS: ketorolac 60 mg/2 mL INJ IM (20:10)
[2021-12-17] MEDS: dexamethasone 10 mg/mL INJ IM (20:10)
[2021-12-17] MEDS: orphenadrine 30 mg/mL Inj 2 mL 60 MG IM (20:11)
== END 2021-12-17 20:15 | disposition home or self-care (01) ==
PROVIDERS: Emergency Provider Physician Assistant
DX: M54.50 Low back pain, unspecified (principal); I10 Essential (primary) hypertension
CPT/HCPCS: 96372; 99284; J1100; J1885; J2360

== ENCOUNTER 2021-12-27 17:22 | Outpatient (CLI) | payer MEDICARE, MEDICAID, SELFPAY ==
[2021-12-27 18:04] LABS: Basophils # 0.1 10^3/uL (0.0-0.1); Basophils % 0.7 %; Eosinophils # 0.1 10^3/uL (0.0-0.8); Eosinophils % 0.9 %; Hematocrit 51.4 % (42.0-52.0); Hemoglobin 17.1 g/dL (11.7-16.6); Lymphocytes # 2.1 10^3/uL (0.8-4.8); Lymphocytes % 21.3 %; Mean Corpuscular HGB Conc 33.3 g/dL (30.0-36.0); Mean Corpuscular Hemoglobin 29.2 pg (28.0-34.0); Mean Corpuscular Volume 87.9 fl (80-94); Mean Platelet Volume 10.7 fL (7.4-10.4); Monocytes # 1.1 10^3/uL (0.2-0.9); Monocytes % 10.7 %; Neutrophils # 6.56 10^3/uL (1.8-7.7); Neutrophils % 65.9 %; Nucleated Red Blood Cells % 0 %; Platelet Count 293 10^3/cmm (130-400); Red Blood Count 5.85 10^6/uL (4.1-5.3); Red Cell Distribution Width 13.1 % (12.1-15.1)
[2021-12-27 18:37] LABS: Estradiol 45.5 pg/mL (7.63-42.6)
[2021-12-29 06:28] LABS: Albumin 4.5 g/dL (3.6-5.1); Sex Hormone Binding Globulin 20 nmol/L (10-50); Testosterone Bioavailable 326.5 ng/dL (110.0-575.0); Testosterone Free 158.7 pg/mL (46.0-224.0); Testosterone Total Males IA 736 ng/dL (250-827)
== END 2021-12-27 17:23 | disposition home or self-care (01) ==
LOC: LAB 17:35
PROVIDERS: Visit Provider Nurse Practitioner Family
DX: E29.1 Testicular hypofunction (principal)
CPT/HCPCS: 82040; 82670; 84270; 84403; 85025

== ENCOUNTER 2022-01-12 16:05 | Outpatient (CLI) | payer MEDICARE, MEDICAID, SELFPAY ==
--- NOTE | 2022-01-12 | US_ITS ---
WS: [id number] Bilateral renal ultrasound, 01/12/2022 Clinical Data: nephrolithiasis Comparison: Gallbladder ultrasound, 03/02/2021 Findings: The right kidney measures 12.2 cm x 5.4 cm x 5.8 cm and the left kidney is 11.4 cm x 5.0 cm x 6.2 cm. There is a superior right renal cortical cyst measuring 1.59 x 1.92 x 2.40 cm. There is a stone in t he right kidney measuring 0.48 x 0.52 x 0.67 cm. The left kidney is normal. The renal cortical margin s are unremarkable.. The abdominal aorta shows no vascular abnormalities. The bladder was scanned and showed no masses or bladder wall thickening. The filled bladder capacity was 74 mL and post voiding volume was 51 mL. The prostate was enlarged measuring 2.77 x 3.07 x 3.36 c m.. US/US renal BI with PV bladder Impression: 1. Small right renal cyst and right renal stone. 2. Poor bladder distention and impaired emptying with a bladder volume of 74 mL and post voiding volume of 51 mL 3. Prostate enlargement.
== END 2022-01-12 16:06 | disposition home or self-care (01) ==
PROVIDERS: Visit Provider Urology
DX: N20.0 Calculus of kidney (principal); N28.1 Cyst of kidney, acquired; N40.0 Benign prostatic hyperplasia without lower urinary tract symptoms
CPT/HCPCS: 76770; 76857

== ENCOUNTER 2022-07-26 13:25 | Outpatient (CLI) | payer MEDICARE, MEDICAID, SELFPAY ==
[2022-07-26 13:49] LABS: Basophils # 0.1 10^3/uL (0.0-0.1); Basophils % 1.1 %; Eosinophils # 0.1 10^3/uL (0.0-0.8); Eosinophils % 1.7 %; Hematocrit 47.7 % (42.0-52.0); Hemoglobin 15.9 g/dL (11.7-16.6); Lymphocytes # 1.6 10^3/uL (0.8-4.8); Lymphocytes % 21.8 %; Mean Corpuscular HGB Conc 33.3 g/dL (30.0-36.0); Mean Corpuscular Hemoglobin 29.4 pg (28.0-34.0); Mean Corpuscular Volume 88.3 fl (80-94); Mean Platelet Volume 10.3 fL (7.4-10.4); Monocytes # 0.8 10^3/uL (0.2-0.9); Monocytes % 10.3 %; Neutrophils # 4.85 10^3/uL (1.8-7.7); Neutrophils % 64.7 %; Nucleated Red Blood Cells % 0 %; Platelet Count 301 10^3/cmm (130-400); White Blood Count 7.5 10^3/uL (4.0-10.0)
[2022-07-26 14:22] LABS: Estradiol 65.4 pg/mL (7.63-42.6)
--- NOTE | 2022-07-26 14:24 | XR_ITS ---
WS: [id number] KUB, AP view, 07/26/2022 Clinical Data: NEPHROLITHIASIS Comparison: KUB, 01/02/2020. Findings: No abnormal intraabdominal masses or calcifications are seen. There is no dilatated small bowel or ev idence of obstruction. Right kidney is partially obscured by overlying fecal material and gas. There are cholecystectomy cli ps in the right upper quadrant. XR/XR KUB [id number] Impression: Negative KUB.
[2022-07-27 07:51] LABS: Sex Hormone Binding Globulin 31 nmol/L (10-50); Testosterone Total Males IA 1106 ng/dL (250-827)
[2022-07-27 08:06] LABS: Albumin 4.4 g/dL (3.6-5.1); Testosterone Bioavailable 388.8 ng/dL (110.0-575.0); Testosterone Free 193.1 pg/mL (46.0-224.0)
== END 2022-07-26 13:26 | disposition home or self-care (01) ==
LOC: LAB 13:29
PROVIDERS: Visit Provider Urology
DX: N20.0 Calculus of kidney (principal); E29.1 Testicular hypofunction
CPT/HCPCS: 74018; 82040; 82670; 84270; 84403; 85025

== ENCOUNTER 2022-09-18 02:33 | Emergency (ER) | payer MEDICARE, MEDICAID, SELFPAY ==
[2022-09-18 02:53] VITALS: BMI 35.5
[2022-09-18 02:56] VITALS: BP 141/89; PULSE 86; RESP 16; TEMP 37.2; O2SAT 95
[2022-09-18 03:05] VITALS: O2SAT 95
[2022-09-18 03:14] LABS: Basophils # 0.1 10^3/uL (0.0-0.1); Eosinophils # 0.2 10^3/uL (0.0-0.8); Eosinophils % 2.8 %; Hematocrit 47.1 % (42.0-52.0); Hemoglobin 15.2 g/dL (11.7-16.6); Mean Corpuscular HGB Conc 32.3 g/dL (30.0-36.0); Mean Corpuscular Hemoglobin 28.8 pg (28.0-34.0); Mean Corpuscular Volume 89.2 fl (80-94); Mean Platelet Volume 10.2 fL (7.4-10.4); Monocytes # 0.8 10^3/uL (0.2-0.9); Monocytes % 11.1 %; Neutrophils # 3.69 10^3/uL (1.8-7.7); Neutrophils % 54.8 %; Nucleated Red Blood Cells % 0 %; Platelet Count 232 10^3/cmm (130-400); Red Blood Count 5.28 10^6/uL (4.1-5.3); Red Cell Distribution Width 12.9 % (12.1-15.1); White Blood Count 6.7 10^3/uL (4.0-10.0)
[2022-09-18 03:15] LABS: Add Urine Microscopic? YES; Bilirubin Urine Neg (Negative); Blood Urine 2+ (Negative); Glucose Urine UA Norm (Normal); Ketones Urine Negative (Negative); Leukocyte Esterase Urine Negative (Negative); Nitrate Urine Negative (Negative); Protein Urine Neg (Negative); Urine Appearance Clear (CLEAR); Urine Color Yellow (Yellow); Urobilinogen Urine Norm (Negative); pH Urine 5 (5-7)
[2022-09-18 03:21] LABS: Bacteria Urine TRACE /hpf; Squamous Epithelial Cell Urine 0-4 /hpf (0-5)
[2022-09-18 03:23] LABS: Alanine Aminotransferase 39 U/L (0-41); Albumin Level 4.1 g/dL (3.5-5.2); Alkaline Phosphatase 101 U/L (40-130); Anion Gap 15.1 (5-19); Aspartate Amino Transferase 24 U/L (0-40); Blood Urea Nitrogen 21 mg/dL (6-20); Calcium 8.8 mg/dL (8.5-10.5); Carbon Dioxide 25 mmol/L (22-29); Chloride 105 mmol/L (98-107); Globulin 2.4 g/dL (1.3-4.6); Glomerular Filtration Rate 78.8 mL/min (90-130); Glucose 103 mg/dL (65-115); Lipase 21 U/L (13-60); Osmolality Calculated 295 mOsm/kg (285-295); Potassium 4.1 mmol/L (3.5-5.1); Sodium 141 mmol/L (136-145); Total Bilirubin 0.7 mg/dL (0.15-1.2); Total Protein 6.5 g/dL (6.6-8.7)
[2022-09-18] MEDS: ondansetron 2 mg/ML SDV 2 mL 4 MG IVP (03:50)
[2022-09-18] MEDS: ketorolac 30 mg/mL INJ 15 MG IVP (03:51)
[2022-09-18 03:52] VITALS: RESP 16; O2SAT 96
[2022-09-18] MEDS: morphine 4 mg/mL SDV 1 mL IVP (03:52)
[2022-09-18 03:54] VITALS: BP 121/75; PULSE 69; RESP 16; O2SAT 93
[2022-09-18 04:15] VITALS: BP 134/93; PULSE 71; RESP 18; O2SAT 95
--- NOTE | 2022-09-20 00:16 | W.ED.ABDPA2 ---
HPI - Abdominal Pain General: Chief Complaint: Abdominal Pain Stated Complaint: abd pain Time Seen by Provider: 09/18/22 03:13 Source: patient History of Present Illness: 51 year old male who complains of super pubic abdominal pain. It's been going on for a month. He says it's been more intense the last couple of days. No fever. No chills. No hematuria. No back or flank pain. No vomiting. Some intermittent dysuria. MD elicited complaint: abdominal pain Pertinent past history: past UTI Location: Suprapubic Severity: moderate Quality: sharp Radiation: suprapubic Migration to: no migration Exacerbating factors: other Relieving factors: nothing Associated Symptoms: Denies fever(s) and vomiting Review of Systems Const: Denies: fever(s) Card: Denies: chest pain or palpitations Resp: Denies: dyspnea GI: Reports: abdominal pain; Denies: vomiting PFSH ED PFSH: Medical History Essential hypertension GERD (gastroesophageal reflux disease) HTN (hypertension) Hypothyroid Low testosterone GABBIE (obstructive sleep apnea) Osteoarthritis involving multiple joints on both sides of body Renal calculus, right Renal cyst, right Surgical History H/O circumcision H/O detached retina repair History of cochlear implant History of colonoscopy 2020 History of uvulectomy Hx of umbilical hernia repair S/P cataract extraction Status post laparoscopic cholecystectomy (04/11/21) Family History Grandmother Hypertension MATERNAL Other CAD (coronary artery disease) Stroke Social History Smoking and tobacco status: never smoked Alcohol intake: never Substance/Drug Use: never Physical Exam Const: COMMON NORMALS: no acute distress GENERAL APPEARANCE: cooperative; not ill appearing and not frail appearing HENMT: COMMON NORMALS: normocephalic, atraumatic and Normal external nose present HEAD & SCALP: normocephalic and atraumatic FACE & SINUS: normal facial exam and face symmetric NOSE: Normal external nose present Eye: COMMON NORMALS: Equal, round and reactive pupils present and EOMs intact bilaterally PUPIL: Yes Equal, round and reactive pupils present Neck/C-Spine: GENERAL: Yes trachea midline Chest: CHEST: Yes Symmetrical chest wall rise Resp: COMMON NORMALS: normal respiratory effort, No retractions, No use of accessory muscles and clear to auscultation bilaterally AUSCULTATION: clear to auscultation bilaterally Cardio: COMMON NORMALS: regular rate and regular rhythm RATE: regular rate RHYTHM: regular rhythm GI: COMMON NORMALS: Normal to inspection, nondistended, normoactive bowel sounds present PALPATION: Yes Tenderness to palpation present (GI) (suprapubic) Extremity: COMMON NORMALS: no pedal edema Neuro: NICOLE COMA SCALE: document GCS findings Nicole coma scale eye opening: Spontaneous [place] coma scale verbal response: Orientated [place] coma scale motor response: Obey commands [place] coma scale total score: 15 SENSORY EXAM: Yes extremities (intact) Psych: COMMON NORMALS: speech normal SPEECH: Yes normal speech Skin: COMMON NORMALS: no rashes or lesions noted GENERAL SKIN EXAM: no rashes or lesions noted Course Vital Signs: Vital signs: Vital Signs Temperature 98.9 F 09/18/22 02:56 Pulse Rate 71 09/18/22 04:15 Respiratory Rate 18 09/18/22 04:15 Blood Pressure 134/93 09/18/22 04:15 Pulse Oximetry 95 09/18/22 04:15 Oxygen Delivery Me thod Room Air 09/18/22 03:54 MDM - Abdominal Pain Medical Decision Making Suprapubic pain in a patient with hematuria on urinalysis, normal CRP, no Leukocytosis. He is not vomiting. He has no back pain or flank pain. Differential includes renal calculus, prostatitis, infection, etcetera. We'll put him on a trial of antibiotics, and have him follow up as an outpatient. If he develops flank pain or back pain, worsening belly pain or vomiting, he is to return for imaging. Lab Data 09/18/22 03:00 09/18/22 03:00 Labs/Radiology: Laboratory Results WBC 6.7 10^3/uL (4.0-10.0) 09/18/22 03:00 RBC 5.28 10^6/uL (4.1-5.3) 09/18/22 03:00 Hgb 15.2 g/dL (11.7-16.6) 09/18/22 03:00 Hct 47.1 % (42.0-52.0) 09/18/22 03:00 MCV 89.2 fl (80-94) 09/18/22 03:00 MCH 28.8 pg (28.0-34.0) 09/18/22 03:00 MCHC 32.3 g/dL (30.0-36.0) 09/18/22 03:00 RDW 12.9 % (12.1-15.1) 09/18/22 03:00 Plt Count 232 10^3/cmm (130-400) 09/18/22 03:00 MPV 10.2 fL (7.4-10.4) 09/18/22 03:00 Neut % (Auto) 54.8 % 09/18/22 03:00 Lymph % (Auto) 30.0 % 09/18/22 03:00 [place] % (Auto) 11.1 % 09/18/22 03:00 Eos % (Auto) 2.8 % 09/18/22 03:00 Baso % (Auto) 1.0 % 09/18/22 03:00 Neut # (Auto) 3.69 10^3/uL (1.8-7.7) 09/18/22 03:00 Lymph # (Auto) 2.0 10^3/uL (0.8-4.8) 09/18/22 03:00 [place] # (Auto) 0.8 10^3/uL (0.2-0.9) 09/18/22 03:00 Eos # (Auto) 0.2 10^3/uL (0.0-0.8) 09/18/22 03:00 Baso # (Auto) 0.1 10^3/uL (0.0-0.1) 09/18/22 03:00 Nucleated RBC % (auto) 0 % 09/18/22 03:00 Nucleated RBCs # 0.0 /100WBC 09/18/22 03:00 Sodium 141 mmol/L (136-145) 09/18/22 03:00 Potassium 4.1 mmol/L (3.5-5.1) 09/18/22 03:00 Chloride 105 mmol/L (98-107) 09/18/22 03:00 Carbon Dioxide 25 mmol/L (22-29) 09/18/22 03:00 Anion Gap 15.1 (5-19) 09/18/22 03:00 BUN 21 mg/dL (6-20) H 09/18/22 03:00 Creatinine 1.0 mg/dL (0.7-1.2) 09/18/22 03:00 GFR Calculation 78.8 mL/min (90-130) L 09/18/22 03:00 Glucose 103 mg/dL (65-115) 09/18/22 03:00 Calculated Osmolality 295 mOsm/kg (285-295) 09/18/22 03:00 Calcium 8.8 mg/dL (8.5-10.5) 09/18/22 03:00 Total Bilirubin 0.7 mg/dL (0.15-1.2) 09/18/22 03:00 AST 24 U/L (0-40) 09/18/22 03:00 ALT 39 U/L (0-41) 09/18/22 03:00 Alkaline Phosphatase 101 U/L (40-130) 09/18/22 03:00 C-Reactive Protein 3.0 mg/L (0.0-4.9) 09/18/22 03:00 Total Protein 6.5 g/dL (6.6-8.7) L 09/18/22 03:00 Albumin 4.1 g/dL (3.5-5.2) 09/18/22 03:00 Globulin 2.4 g/dL (1.3-4.6) 09/18/22 03:00 Lipase 21 U/L (13-60) 09/18/22 03:00 Urine Color Yellow (Yellow) 09/18/22 03:00 Urine Appearance Clear (CLEAR) 09/18/22 03:00 Urine pH 5 (5-7) 09/18/22 03:00 Ur Specific [place] 1.020 (1.005-1.030) 09/18/22 03:00 Urine Protein Neg (Negative) 09/18/22 03:00 Urine Glucose (UA) Norm (Normal) 09/18/22 03:00 Urine Ketones Negative (Negative) 09/18/22 03:00 Urine Blood 2+ (Negative) H 09/18/22 03:00 Urine Nitrate Negative (Negative) 09/18/22 03:00 Urine Bilirubin Neg (Negative) 09/18/22 03:00 Urine Urobilinogen Norm mg/dL (Negative) 09/18/22 03:00 Ur Leukocyte Esterase Negative (Negative) 09/18/22 03:00 Urine RBC 5-10 /hpf (0-2) H 09/18/22 03:00 Urine WBC None /hpf (0-5) 09/18/22 03:00 Ur Squamous Epith Cells 0-4 /hpf (0-5) H 09/18/22 03:00 Amorphous Sediment Not Reportable 09/18/22 03:00 Urine Bacteria Trace /hpf (NONE) 09/18/22 03:00 Discharge Plan Discharge Patient Disposition: Home Clinical Impression: Hematuria Condition: Stable Prescriptions: New Cipro 500 mg tablet 500 mg PO Q12H Qty: 14 0RF ondansetron 4 mg film 4 mg PO Q8H PRN (Reason: nausea and vomiting) Qty: 10 0RF ketorolac 10 mg tablet 10 mg PO TID PRN (Reason: pain) Qty: 10 0RF No Action gabapentin 300 mg capsule 300 mg PO BID diclofenac sodium 75 mg tablet,delayed release (DR/EC) PO ciclopirox 0.77 % cream 1 applic topical BID Qty: 30 2RF Rx Instructions: apply to face 1-2 x daily x 4 weeks then prn (DME) syringe with needle [Easy Touch] 1 mL 25 gauge x 1 syringe See Rx Instructions .ROUTE .MEDSUPPLY Qty: 100 3RF Rx Instructions: As directed lisinopril 20 mg tablet 20 mg PO DAILY Qty: 90 2RF testosterone cypionate [Depo-Testosterone] 200 mg/mL oil 150 mg IM .COMPLEX 90 Days Qty: 4 3RF Rx Instructions: 150 mg IM [id number]; Celebrex 100 mg capsule 100 mg PO BID PRN (Reason: pain) Qty: 20 0RF cyclobenzaprine 10 mg tablet 10 mg PO BID PRN (Reason: muscle spasm) Qty: 20 0RF Discharge Orders: Discharge ED (Routine); Ordered 09/18/22 Ordered By: Kody Clifton Patient Instructions: Hematuria (ED), Opioid Safety, Pain Management Activity Restrictions/Additional Instructions: Antibiotics as directed. Take pain medication and nausea medication as needed. Return for fever, vomiting liquids or medications, other concerning symptoms. See your doctor this week to ensure blood is clearing from your urine as further outpatient tests may be needed. Coding Level of Care Code ED Vocational Rehabilitation Supervisor for Sherifg Devin
== END 2022-09-18 04:21 | disposition home or self-care (01) ==
PROVIDERS: Emergency Provider Emergency Medicine
DX: R31.9 Hematuria, unspecified (principal)
CPT/HCPCS: 51798; 80053; 81001; 83690; 85025; 86140; 96374; 96375; 99284; J1885; J2270; J2405

== ENCOUNTER 2022-11-06 15:43 | Emergency (ER) | payer MEDICARE, MEDICAID, SELFPAY ==
[2022-11-06 16:11] VITALS: BP 125/84; PULSE 90; RESP 18; TEMP 38.4; O2SAT 94; BMI 35.5
--- NOTE | 2022-11-06 17:21 | ED_ITS ---
HPI - URI/Sore Throat General: Chief Complaint: Upper Respiratory Infection Stated Complaint: body ache, cough, sore throat, diarreah Time Seen by Provider: 11/06/22 17:20 History of Present Illness: 52-year-old male patient comes in today with body aches, cough, sore throat, and diarrhea. Patient reports symptoms started on Sunday. Patient appears mildly unwell but not toxic. Patient denies any chronic medical problems. Patient reports no routine medicines. Patient this morning tested at home for COVID and was positive. Patient came in for instructions on treatment. Associated symptoms: Reports fever(s) and nasal congestion Review of Systems General: Reports: 10 or more systems reviewed and unremarkable except in HPI and below Const: Reports: fever(s) ENMT: Reports: throat pain and nasal congestion Resp: Reports: non-productive cough PFSH ED PFSH: Medical History Essential hypertension GERD (gastroesophageal reflux disease) HTN (hypertension) Hypothyroid Low testosterone GABBIE (obstructive sleep apnea) Osteoarthritis involving multiple joints on both sides of body Renal calculus, right Renal cyst, right Surgical History H/O circumcision H/O detached retina repair History of cochlear implant History of colonoscopy 2020 History of uvulectomy Hx of umbilical hernia repair S/P cataract extraction Status post laparoscopic cholecystectomy (04/11/21) Family History Grandmother Hypertension MATERNAL Other CAD (coronary artery disease) Stroke Social History Smoking and tobacco status: never smoked Alcohol intake: never Substance/Drug Use: never Physical Exam Const: COMMON NORMALS: alert HENMT: COMMON NORMALS: normocephalic HEAD & SCALP: normocephalic THROAT: posterior oropharynx abnormal erythema Neck/C-Spine: COMMON NORMALS: no meningeal signs Resp: COMMON NORMALS: normal respiratory effort and clear to auscultation bilaterally AUSCULTATION: clear to auscultation bilaterally Cardio: COMMON NORMALS: regular rate and regular rhythm RATE: regular rate RHYTHM: regular rhythm GI: AUSCULTATION: Yes normoactive bowel sounds Back/Pelvis: COMMON NORMALS: thoracic and lumbar spine normal to inspection Extremity: COMMON NORMALS: normal to inspection Neuro: SENSORIUM/ORIENTATION: Yes alert MENINGEAL SIGNS: Yes no meningeal signs Skin: COMMON NORMALS: turgor normal GENERAL SKIN EXAM: turgor normal Course Vital Signs: Vital signs: Vital Signs Temperature 101.1 F H 11/06/22 16:11 Pulse Rate 90 11/06/22 16:11 Respiratory Rate 18 11/06/22 16:11 Blood Pressure 125/84 11/06/22 16:11 Pulse Oximetry 94 11/06/22 16:11 Oxygen Delivery Me thod Room Air 11/06/22 16:11 MDM - URI/Sore Throat Medical Decision Making 52-year-old male patient presents today with complaints of upper respiratory symptoms. On exam patient had posterior pharynx is slightly erythematous and there is some nasal discharge. Lungs are clear to auscultation. Skin is warm and dry. Vital signs are normal except for elevated temperature. Patient did have a positive home COVID test. Differential diagnosis includes but not limited to pneumonia, upper respiratory infection, COVID-19, dehydration. Patient appears nontoxic. Believe patient probably does have COVID-19 and reviewed recommendations for further treatment and follow-up. Patient reported understanding and agreed to plan. Discharge Plan Discharge Patient Disposition: Home Clinical Impression: COVID Condition: Stable Prescriptions: New promethazine-DM 6.25-15 mg/5 mL syrup 5 ml PO Q6H PRN (Reason: cough) Qty: 118 0RF ibuprofen 600 mg tablet 600 mg PO Q6H PRN (Reason: fever or pain) Qty: 30 0RF No Action gabapentin 300 mg capsule 300 mg PO BID diclofenac sodium 75 mg tablet,delayed release (DR/EC) PO ciclopirox 0.77 % cream 1 applic topical BID Qty: 30 2RF Rx Instructions: apply to face 1-2 x daily x 4 weeks then prn (DME) syringe with needle [Easy Touch] 1 mL 25 gauge x 1 syringe See Rx Instructions .ROUTE .MEDSUPPLY Qty: 100 3RF Rx Instructions: As directed lisinopril 20 mg tablet 20 mg PO DAILY Qty: 90 2RF testosterone cypionate [Depo-Testosterone] 200 mg/mL oil 150 mg IM .COMPLEX 90 Days Qty: 4 3RF Rx Instructions: 150 mg IM [id number]; Celebrex 100 mg capsule 100 mg PO BID PRN (Reason: pain) Qty: 20 0RF cyclobenzaprine 10 mg tablet 10 mg PO BID PRN (Reason: muscle spasm) Qty: 20 0RF Cipro 500 mg tablet 500 mg PO Q12H Qty: 14 0RF ondansetron 4 mg film 4 mg PO Q8H PRN (Reason: nausea and vomiting) Qty: 10 0RF ketorolac 10 mg tablet 10 mg PO TID PRN (Reason: pain) Qty: 10 0RF Discharge Orders: Discharge ED (Routine); Ordered 11/06/22 Ordered By: Juan Gomez Discharge Diet: Usual diet Discharge Activity: Increase activity as tolerated Patient Instructions: COVID-19 (Coronavirus Disease 2019) (ED) Activity Restrictions/Additional Instructions: Home and rest. Drink plenty of water and fluids. Use acetaminophen and ibuprofen as needed for pain and fever. Use 650 mg of acetaminophen every 6 hours to help control pain and fever. Use ibuprofen 600 mg every 6 hours for pain and fever. Make sure to take plenty of fluids and to stay well-hydrated. Follow-up with primary care for further instructions. Return to the ER for worsening shortness of breath or new concerns. Stand Alone Forms: Work/School Release Coding Level of Care Code ED Tools Developer for Umang Beltran
--- NOTE | 2022-11-09 13:48 | DCPLANNER ---
manager resource called patient due to no primary care physician - no answer at this time.
--- NOTE | 2022-11-15 11:33 | DCPLANNER ---
Addendum entered by Shannan Adler 11/15/22 12:51: Patient called case management rn back, he declines at this time Original Note: manager medical device called patient due to no primary care physician - unable to speak with patient at this time, unable to leave a voicemail for patient.
== END 2022-11-06 17:42 | disposition home or self-care (01) ==
PROVIDERS: Emergency Provider Nurse Practitioner Family
DX: U07.1 COVID-19 (principal); I10 Essential (primary) hypertension
CPT/HCPCS: 99283

== ENCOUNTER 2022-11-09 16:59 | Emergency (ER) | payer MEDICARE, MEDICAID, SELFPAY ==
[2022-11-09 17:14] VITALS: BP 141/91; PULSE 75; RESP 18; TEMP 36.9; O2SAT 94; BMI 36.5
--- NOTE | 2022-11-09 17:40 | W.ED.URI ---
HPI - URI/Sore Throat General: Chief Complaint: Upper Respiratory Infection Stated Complaint: sore throat,chest congestion Time Seen by Provider: 11/09/22 17:40 History of Present Illness: 52-year-old male patient comes in today with sore throat. Patient was seen 3 to 4 days ago and was diagnosed with COVID. Patient has had symptoms since Sunday. Patient came back today due to persistent fever and discomfort of the throat. And some chest congestion. Patient appears nontoxic. Patient appears in mild to moderate pain. Associated symptoms: Deny chest pain or fever(s) Review of Systems Const: Denies: fever(s) or body aches ENMT: Reports: throat pain Card: Denies: chest pain Resp: Reports: non-productive cough; Denies: dyspnea PFSH ED PFSH: Medical History Essential hypertension GERD (gastroesophageal reflux disease) HTN (hypertension) Hypothyroid Low testosterone GABBIE (obstructive sleep apnea) Osteoarthritis involving multiple joints on both sides of body Renal calculus, right Renal cyst, right Surgical History H/O circumcision H/O detached retina repair History of cochlear implant History of colonoscopy 2020 History of uvulectomy Hx of umbilical hernia repair S/P cataract extraction Status post laparoscopic cholecystectomy (04/11/21) Family History Grandmother Hypertension MATERNAL Other CAD (coronary artery disease) Stroke Social History Smoking and tobacco status: never smoked Alcohol intake: never Substance/Drug Use: never Physical Exam Const: COMMON NORMALS: alert HENMT: COMMON NORMALS: normocephalic HEAD & SCALP: normocephalic MOUTH: Normal oral and palatal mucosa present THROAT: posterior oropharynx abnormal cobblestoning Neck/C-Spine: COMMON NORMALS: full ROM and no meningeal signs Resp: COMMON NORMALS: normal respiratory effort and clear to auscultation bilaterally AUSCULTATION: clear to auscultation bilaterally Cardio: COMMON NORMALS: regular rate and regular rhythm RATE: regular rate RHYTHM: regular rhythm GI: COMMON NORMALS: non-tender Back/Pelvis: COMMON NORMALS: thoracic and lumbar spine normal to inspection Extremity: COMMON NORMALS: full ROM Neuro: SENSORIUM/ORIENTATION: Yes alert MENINGEAL SIGNS: Yes no meningeal signs Skin: COMMON NORMALS: turgor normal GENERAL SKIN EXAM: turgor normal Course Vital Signs: Vital signs: Vital Signs Temperature 98.4 F 11/09/22 17:14 Pulse Rate 75 11/09/22 17:14 Respiratory Rate 18 11/09/22 17:14 Blood Pressure 141/91 11/09/22 17:14 Pulse Oximetry 94 11/09/22 17:14 Oxygen Delivery Me thod Room Air 11/09/22 17:14 MDM - URI/Sore Throat Medical Decision Making 52-year-old male patient comes in today for complaints of sore throat and recent positive COVID test. On exam patient appears nontoxic. Patient appears no acute distress. Respirations are even lungs are clear to auscultation. Posterior pharynx is erythematous with cobblestoning. Differential diagnosis includes viral pharyngitis, postviral COVID syndrome, pneumonia, anxiety about health. Some erythema and cobblestoning is noted to the throat. Believe the patient probably just has some pharyngitis secondary to the viral syndrome. Patient was given a dose of steroid to help with the pain and discomfort. Patient was written prescription for continuation of oral prednisone for 3 more days, some viscous lidocaine for pain. And hydrocodone for severe pain. Patient reported understanding of care plan and need for follow-up or return to the ER for worsening symptoms. Discharge Plan Discharge Patient Disposition: Home Clinical Impression: COVID Pharyngitis Qualifiers: Pharyngitis/tonsillitis etiology: other specified organisms Qualified Code(s): J02.8 - Acute pharyngitis due to other specified organisms Condition: Stable Prescriptions: New prednisone 20 mg tablet 20 mg PO DAILY 3 Days Qty: 3 0RF Lidocaine Viscous 2 % solution 5 ml mucous membrane Q4H PRN (Reason: pain) Qty: 100 0RF Rx Instructions: swish and swallow for throat pain hydrocodone-acetaminophen 5-325 mg tablet 1 tab PO BID PRN (Reason: pain (scale score 7-10)) Qty: 6 0RF No Action gabapentin 300 mg capsule 300 mg PO BID diclofenac sodium 75 mg tablet,delayed release (DR/EC) PO ciclopirox 0.77 % cream 1 applic topical BID Qty: 30 2RF Rx Instructions: apply to face 1-2 x daily x 4 weeks then prn (DME) syringe with needle [Easy Touch] 1 mL 25 gauge x 1 syringe See Rx Instructions .ROUTE .MEDSUPPLY Qty: 100 3RF Rx Instructions: As directed lisinopril 20 mg tablet 20 mg PO DAILY Qty: 90 2RF testosterone cypionate [Depo-Testosterone] 200 mg/mL oil 150 mg IM .COMPLEX 90 Days Qty: 4 3RF Rx Instructions: 150 mg IM [id number]; Celebrex 100 mg capsule 100 mg PO BID PRN (Reason: pain) Qty: 20 0RF cyclobenzaprine 10 mg tablet 10 mg PO BID PRN (Reason: muscle spasm) Qty: 20 0RF Cipro 500 mg tablet 500 mg PO Q12H Qty: 14 0RF ondansetron 4 mg film 4 mg PO Q8H PRN (Reason: nausea and vomiting) Qty: 10 0RF ketorolac 10 mg tablet 10 mg PO TID PRN (Reason: pain) Qty: 10 0RF promethazine-DM 6.25-15 mg/5 mL syrup 5 ml PO Q6H PRN (Reason: cough) Qty: 118 0RF ibuprofen 600 mg tablet 600 mg PO Q6H PRN (Reason: fever or pain) Qty: 30 0RF Discharge Orders: Discharge ED (Routine); Ordered 11/09/22 Ordered By: Juan Gomez Discharge Diet: Usual diet Discharge Activity: Increase activity as tolerated Patient Instructions: Pharyngitis (ED) Activity Restrictions/Additional Instructions: Drink plenty of water and fluids. Use medications as directed. Follow-up with primary care as needed. Return to ER for worsening symptoms such as increased shortness of breath, unable to hold fluids down, return of fever, or new concerns. Stand Alone Forms: Work/School Release Coding Level of Care Code ED Dope Mixer for Umang Beltran
[2022-11-09] MEDS: dexamethasone 10 mg/mL INJ IM (18:14)
== END 2022-11-09 18:36 | disposition home or self-care (01) ==
PROVIDERS: Emergency Provider Nurse Practitioner Family
DX: U07.1 COVID-19 (principal); J02.8 Acute pharyngitis due to other specified organisms; I10 Essential (primary) hypertension
CPT/HCPCS: 96372; 99284; J1100

== ENCOUNTER 2022-11-28 14:18 | Outpatient (CLI) | payer MEDICARE, MEDICAID, SELFPAY ==
[2022-11-28 15:17] LABS: Alanine Aminotransferase 28 U/L (0-41); Albumin Level 4.1 g/dL (3.5-5.2); Alkaline Phosphatase 102 U/L (40-130); Aspartate Amino Transferase 25 U/L (0-40); Globulin 2.8 g/dL (1.3-4.6); Prostate Specific Antigen 0.684 ng/mL (0-4); Total Bilirubin 0.7 mg/dL (0.15-1.2); Total Protein 6.9 g/dL (6.6-8.7)
[2022-11-28 16:12] LABS: Testosterone Total 315.7 ng/dL (193-740)
== END 2022-11-28 14:19 | disposition home or self-care (01) ==
PROVIDERS: PCP Urology; Visit Provider Urology
DX: Z12.5 Encounter for screening for malignant neoplasm of prostate (principal); E29.1 Testicular hypofunction; N28.1 Cyst of kidney, acquired
CPT/HCPCS: 36415; 80076; 84153; 84403

== ENCOUNTER 2022-12-24 12:57 | Emergency (ER) | payer MEDICARE, MEDICAID, SELFPAY ==
[2022-12-24 13:07] VITALS: BP 155/101; PULSE 103; RESP 18; TEMP 36.6; O2SAT 96; BMI 35.5
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
[2022-12-24] MEDS: ketorolac 60 mg/2 mL INJ IM (13:38)
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
[2022-12-24 15:05] VITALS: BP 160/104; PULSE 92; O2SAT 96
== END 2022-12-24 14:45 | disposition home or self-care (01) ==
PROVIDERS: Emergency Provider Family Medicine
DX: S13.4XXA Sprain of ligaments of cervical spine, initial encounter (principal); M79.10 Myalgia, unspecified site; I10 Essential (primary) hypertension; V49.40XA Driver injured in collision with unspecified motor vehicles in traffic accident, initial encounter
CPT/HCPCS: 70450; 71045; 72040; 96372; 99284; J1885

== ENCOUNTER 2023-05-01 03:30 | Emergency (ER) | payer MEDICARE, MEDICAID, SELFPAY ==
[2023-05-01 03:38] VITALS: BP 158/115; PULSE 98; RESP 18; TEMP 36.6; O2SAT 97; BMI 37.5
--- NOTE | 2023-05-01 03:45 | ED_ITS ---
Documented by User: Bree Moyer MD 05/01/23 03:47 HPI - Abdominal Pain 2 General: Chief Complaint: Abdominal Pain Stated Complaint: Abd pain Time Seen by Provider: 05/01/23 03:33 Source: patient Mode of arrival: ambulatory Limitations: no limitations History of Present Illness: 52-year-old male states has been having abdominal pain for 3 months he states has gotten much worse in the last 3 weeks. He states he has seen his PCP and is supposed to have a CT scan but not stable have any states tonight his pain had worsened its 8 out of 10 its diffuse in nature he denies any vomiting or diarrhea denies any fevers or dysuria Associated Symptoms: Denies chills, diarrhea, fever(s), nausea and vomiting Review of Systems 2 Const: Denies: fever(s), chills, body aches or change in appetite ENMT: Denies: throat pain or dental pain Card: Denies: chest pain Resp: Denies: dyspnea GI: Reports: abdominal pain; Denies: nausea, vomiting or diarrhea Musc: Denies: neck pain or back pain Skin/Breast: Denies: rash Neuro: Denies: headache(s) PFSH ED 2 PFSH: Medical History GERD (gastroesophageal reflux disease) Renal cyst, right Renal calculus, right Low testosterone Hypothyroid Essential hypertension Osteoarthritis involving multiple joints on both sides of body GABBIE (obstructive sleep apnea) HTN (hypertension) Surgical History Status post laparoscopic cholecystectomy (04/11/21) History of colonoscopy 2020 S/P cataract extraction H/O circumcision History of cochlear implant H/O detached retina repair Hx of umbilical hernia repair History of uvulectomy Family History Grandmother Hypertension MATERNAL Other CAD (coronary artery disease) Stroke Social History Smoking and tobacco/nicotine status: never used tobacco/nicotine Alcohol intake: never Substance/Drug Use: never Physical Exam 2 Const: COMMON NORMALS: no acute distress, patient oriented x3 and healthy appearing HENMT: COMMON NORMALS: normocephalic and atraumatic HEAD & SCALP: n ormocephalic and atraumatic Neck/C-Spine: COMMON NORMALS: full ROM and supple Chest: COMMONS NORMALS: normal inspection of the chest Resp: COMMON NORMALS: normal respiratory effort Cardio: COMMON NORMALS: regular rate, regular rhythm and No murmurs present (Cardio) RATE: regular rate RHYTHM: regular rhythm GI: COMMON NORMALS: Normal to inspection, nondistended, normoactive bowel sounds present, Soft to palpation and no masses PALPATION: Yes Soft to palpation OTHER: diffuse tenderness Extremity: COMMON NORMALS: normal to inspection and full ROM Neuro: COMMON NORMALS: patient oriented x3, moves all extremities and no focal motor deficits Psych: COMMON NORMALS: mental status grossly normal, Normal thought process present and cooperative THOUGHT PROCESS: Normal thought process present Skin: COMMON NORMALS: no rashes or lesions noted and no wounds GENERAL SKIN EXAM: no rashes or lesions noted Course 2 Vital Signs: Vital signs: Vital Signs Temperature 97.8 F 05/01/23 03:38 Pulse Rate 77 05/01/23 06:34 Respiratory Rate 18 05/01/23 04:23 Blood Pressure 146/96 05/01/23 06:08 Pulse Oximetry 92 05/01/23 06:34 Oxygen Delivery Me thod Room Air 05/01/23 06:08 MDM - Abdominal Pain Lab Data 05/01/23 03:44 05/01/23 03:44 Labs/Radiology: Radiology Impressions Abdomen/Pelvis CT 05/01/23 04:14 IMPRESSION: Right hydroureteronephrosis secondary to a 7 mm stone at the right UVJ. Laboratory Results WBC 6.21 10^3/uL (3.29-11.43) 05/01/23 03:44 RBC 5.40 10^6/uL (3.85-5.65) 05/01/23 03:44 Hgb 15.60 g/dL (11.27-16.99) 05/01/23 03:44 Hct 47.4 % (37-53) 05/01/23 03:44 MCV 87.8 fl (82-101) 05/01/23 03:44 MCH 28.9 pg (27-33) 05/01/23 03:44 MCHC 32.9 g/dL (30-55) 05/01/23 03:44 RDW 13.3 % (12.1-15.1) 05/01/23 03:44 Plt Count 232 10^3/cmm (157-399) 05/01/23 03:44 MPV 10.4 fL (7.4-10.4) 05/01/23 03:44 Neut % (Auto) 46.4 % 05/01/23 03:44 Lymph % (Auto) 36.6 % 05/01/23 03:44 [place] % (Auto) 14.2 % 05/01/23 03:44 Eos % (Auto) 2.1 % 05/01/23 03:44 Baso % (Auto) 0.5 % 05/01/23 03:44 Neut # (Auto) 2.89 10^3/uL (1.8-7.7) 05/01/23 03:44 Lymph # (Auto) 2.3 10^3/uL (0.8-4.8) 05/01/23 03:44 [place] # (Auto) 0.9 10^3/uL (0.2-0.9) 05/01/23 03:44 Eos # (Auto) 0.1 10^3/uL (0.0-0.8) 05/01/23 03:44 Baso # (Auto) 0.0 10^3/uL (0.0-0.1) 05/01/23 03:44 Nucleated RBC % (auto) 0 % 05/01/23 03:44 Nucleated RBCs # 0.0 /100WBC 05/01/23 03:44 Sodium 143 mmol/L (136-145) 05/01/23 03:44 Potassium 3.8 mmol/L (3.5-5.1) 05/01/23 03:44 Chloride 105 mmol/L (98-107) 05/01/23 03:44 Carbon Dioxide 27 mmol/L (22-29) 05/01/23 03:44 Anion Gap 14.8 (5-19) 05/01/23 03:44 BUN 19 mg/dL (6-20) 05/01/23 03:44 Creatinine 1.1 mg/dL (0.7-1.2) 05/01/23 03:44 GFR Calculation 70.3 mL/min (90-130) L 05/01/23 03:44 Glucose 103 mg/dL (65-115) 05/01/23 03:44 Calculated Osmolality 299 mOsm/kg (285-295) H 05/01/23 03:44 Calcium 9.3 mg/dL (8.5-10.5) 05/01/23 03:44 Total Bilirubin 1.0 mg/dL (0.15-1.2) 05/01/23 03:44 AST 25 U/L (0-40) 05/01/23 03:44 ALT 28 U/L (0-41) 05/01/23 03:44 Alkaline Phosphatase 111 U/L (40-130) 05/01/23 03:44 Total Protein 7.2 g/dL (6.6-8.7) 05/01/23 03:44 Albumin 4.5 g/dL (3.5-5.2) 05/01/23 03:44 Globulin 2.7 g/dL (1.3-4.6) 05/01/23 03:44 Lipase 27 U/L (13-60) 05/01/23 03:44 Urine Color Yellow (Yellow) 05/01/23 04:58 Urine Appearance Clear (CLEAR) 05/01/23 04:58 Urine pH 6 (5-7) 05/01/23 04:58 Ur Specific [place] 1.020 (1.005-1.030) 05/01/23 04:58 Urine Protein Neg (Negative) 05/01/23 04:58 Urine Glucose (UA) Norm (Normal) 05/01/23 04:58 Urine Ketones Negative (Negative) 05/01/23 04:58 Urine Blood Neg (Negative) 05/01/23 04:58 Urine Nitrate Negative (Negative) 05/01/23 04:58 Urine Bilirubin Neg (Negative) 05/01/23 04:58 Urine Urobilinogen Neg mg/dL (Negative) 05/01/23 04:58 Ur Leukocyte Esterase Negative (Negative) 05/01/23 04:58 Discharge Plan Discharge Patient Disposition: Home Clinical Impression: Right nephrolithiasis Condition: Stable Prescriptions: New promethazine 25 mg tablet 25 mg PO Q6H PRN (Reason: nausea and vomiting) Qty: 20 0RF tamsulosin 0.4 mg capsule 0.4 mg PO .Twice daily Qty: 30 0RF Percocet 5-325 mg tablet 1 - 2 tab PO .Every 4-6 hours PRN (Reason: pain) Qty: 25 0RF No Action celecoxib [Celebrex] 100 mg capsule 100 mg PO BID PRN (Reason: pain) Qty: 20 0RF cyclobenzaprine 10 mg tablet 10 mg PO BID PRN (Reason: muscle spasm) Qty: 20 0RF Rx Instructions: do not use when operating a vehicle or heavy machinery testosterone cypionate [Depo-Testosterone] 200 mg/mL oil 150 mg IM .COMPLEX 90 Days Qty: 4 3RF Rx Instructions: 150 mg IM [id number]; ibuprofen 600 mg tablet 600 mg PO Q6H PRN (Reason: fever or pain) Qty: 30 0RF Discharge Orders: Discharge ED (Routine); Ordered 05/01/23 Ordered By: Andrew Ruiz Patient Instructions: Opioid Safety, Pain Management, How to Strain Your Urine (ED), Kidney Stones (ED) Activity Restrictions/Additional Instructions: Thank you for choosing [facility] for your healthcare needs today. Please realize this is an emergency room and that we are providing you with a medical screening exam and this may not be complete and all inclusive of all the testing and or work up that you may need to determine your ailment or severity of your illness. It is very important that you follow up as instructed or that you return to the Emergency Department should you have concerns or if your condition changes or worsens in any way. Recommend that you contact Dr. Underwood for follow-up regarding the kidney stone. Strain urine to collect stone if pain is uncontrolled return to the emergency room Sign Out Sign Out Data: Patient Sign Out occurred on 05/01/23 at 06:08. Patient's care was discussed, and care was transferred from Bree Moyer MD to Andrew Ruiz DO. Coding Level of Care Code ED Railcar Carpenter for Chg Fwd Documented by User: Andrew Ruiz DO 05/01/23 06:49 HPI - Abdominal Pain 2 General: Chief Complaint: Abdominal Pain Stated Complaint: Abd pain Time Seen by Provider: 05/01/23 03:33 PFSH ED 2 PFSH: Medical History GERD (gastroesophageal reflux disease) Renal cyst, right Renal calculus, right Low testosterone Hypothyroid Essential hypertension Osteoarthritis involving multiple joints on both sides of body GABBIE (obstructive sleep apnea) HTN (hypertension) Surgical History Status post laparoscopic cholecystectomy (04/11/21) History of colonoscopy 2020 S/P cataract extraction H/O circumcision History of cochlear implant H/O detached retina repair Hx of umbilical hernia repair History of uvulectomy Family History Grandmother Hypertension MATERNAL Other CAD (coronary artery disease) Stroke Social History Smoking and tobacco/nicotine status: never used tobacco/nicotine Alcohol intake: never Substance/Drug Use: never Course 2 Vital Signs: Vital signs: Vital Signs Temperature 97.8 F 05/01/23 03:38 Pulse Rate 77 05/01/23 06:34 Respiratory Rate 18 05/01/23 04:23 Blood Pressure 146/96 05/01/23 06:08 Pulse Oximetry 92 05/01/23 06:34 Oxygen Delivery Me thod Room Air 05/01/23 06:08 MDM - Abdominal Pain Medical Decision Making Care assumed at change of shift patient has a 7 mm right UVJ stone. He tells me he was at [place] a month ago had a stone on the right. No signs of cystitis on the urine. Will discharge patient home with pain medication tamsulosin and antiemetics. Recommend straining urine. He has seen Dr. Underwood urology at [place] in the past recommend that he follow-up with him, contact his office this morning. They can get reports of both of the CTs he had done recently 1 in [place] and 1 here and offer him treatment options. At this time pain is controlled. Medical Records I reviewed the patient's medical records. Lab Data I reviewed the patient's lab results. 05/01/23 03:44 05/01/23 03:44 Labs/Radiology: Radiology Impressions Abdomen/Pelvis CT 05/01/23 04:14 IMPRESSION: Right hydroureteronephrosis secondary to a 7 mm stone at the right UVJ. Laboratory Results WBC 6.21 10^3/uL (3.29-11.43) 05/01/23 03:44 RBC 5.40 10^6/uL (3.85-5.65) 05/01/23 03:44 Hgb 15.60 g/dL (11.27-16.99) 05/01/23 03:44 Hct 47.4 % (37-53) 05/01/23 03:44 MCV 87.8 fl (82-101) 05/01/23 03:44 MCH 28.9 pg (27-33) 05/01/23 03:44 MCHC 32.9 g/dL (30-55) 05/01/23 03:44 RDW 13.3 % (12.1-15.1) 05/01/23 03:44 Plt Count 232 10^3/cmm (157-399) 05/01/23 03:44 MPV 10.4 fL (7.4-10.4) 05/01/23 03:44 Neut % (Auto) 46.4 % 05/01/23 03:44 Lymph % (Auto) 36.6 % 05/01/23 03:44 [place] % (Auto) 14.2 % 05/01/23 03:44 Eos % (Auto) 2.1 % 05/01/23 03:44 Baso % (Auto) 0.5 % 05/01/23 03:44 Neut # (Auto) 2.89 10^3/uL (1.8-7.7) 05/01/23 03:44 Lymph # (Auto) 2.3 10^3/uL (0.8-4.8) 05/01/23 03:44 [place] # (Auto) 0.9 10^3/uL (0.2-0.9) 05/01/23 03:44 Eos # (Auto) 0.1 10^3/uL (0.0-0.8) 05/01/23 03:44 Baso # (Auto) 0.0 10^3/uL (0.0-0.1) 05/01/23 03:44 Nucleated RBC % (auto) 0 % 05/01/23 03:44 Nucleated RBCs # 0.0 /100WBC 05/01/23 03:44 Sodium 143 mmol/L (136-145) 05/01/23 03:44 Potassium 3.8 mmol/L (3.5-5.1) 05/01/23 03:44 Chloride 105 mmol/L (98-107) 05/01/23 03:44 Carbon Dioxide 27 mmol/L (22-29) 05/01/23 03:44 Anion Gap 14.8 (5-19) 05/01/23 03:44 BUN 19 mg/dL (6-20) 05/01/23 03:44 Creatinine 1.1 mg/dL (0.7-1.2) 05/01/23 03:44 GFR Calculation 70.3 mL/min (90-130) L 05/01/23 03:44 Glucose 103 mg/dL (65-115) 05/01/23 03:44 Calculated Osmolality 299 mOsm/kg (285-295) H 05/01/23 03:44 Calcium 9.3 mg/dL (8.5-10.5) 05/01/23 03:44 Total Bilirubin 1.0 mg/dL (0.15-1.2) 05/01/23 03:44 AST 25 U/L (0-40) 05/01/23 03:44 ALT 28 U/L (0-41) 05/01/23 03:44 Alkaline Phosphatase 111 U/L (40-130) 05/01/23 03:44 Total Protein 7.2 g/dL (6.6-8.7) 05/01/23 03:44 Albumin 4.5 g/dL (3.5-5.2) 05/01/23 03:44 Globulin 2.7 g/dL (1.3-4.6) 05/01/23 03:44 Lipase 27 U/L (13-60) 05/01/23 03:44 Urine Color Yellow (Yellow) 05/01/23 04:58 Urine Appearance Clear (CLEAR) 05/01/23 04:58 Urine pH 6 (5-7) 05/01/23 04:58 Ur Specific [place] 1.020 (1.005-1.030) 05/01/23 04:58 Urine Protein Neg (Negative) 05/01/23 04:58 Urine Glucose (UA) Norm (Normal) 05/01/23 04:58 Urine Ketones Negative (Negative) 05/01/23 04:58 Urine Blood Neg (Negative) 05/01/23 04:58 Urine Nitrate Negative (Negative) 05/01/23 04:58 Urine Bilirubin Neg (Negative) 05/01/23 04:58 Urine Urobilinogen Neg mg/dL (Negative) 05/01/23 04:58 Ur Leukocyte Esterase Negative (Negative) 05/01/23 04:58 All radiology interpretation(s) finalized by discharge Discharge Plan Discharge Patient Disposition: Home Clinical Impression: Right nephrolithiasis Condition: Stable Prescriptions: New promethazine 25 mg tablet 25 mg PO Q6H PRN (Reason: nausea and vomiting) Qty: 20 0RF tamsulosin 0.4 mg capsule 0.4 mg PO .Twice daily Qty: 30 0RF Percocet 5-325 mg tablet 1 - 2 tab PO .Every 4-6 hours PRN (Reason: pain) Qty: 25 0RF No Action celecoxib [Celebrex] 100 mg capsule 100 mg PO BID PRN (Reason: pain) Qty: 20 0RF cyclobenzaprine 10 mg tablet 10 mg PO BID PRN (Reason: muscle spasm) Qty: 20 0RF Rx Instructions: do not use when operating a vehicle or heavy machinery testosterone cypionate [Depo-Testosterone] 200 mg/mL oil 150 mg IM .COMPLEX 90 Days Qty: 4 3RF Rx Instructions: 150 mg IM [id number]; ibuprofen 600 mg tablet 600 mg PO Q6H PRN (Reason: fever or pain) Qty: 30 0RF Discharge Orders: Discharge ED (Routine); Ordered 05/01/23 Ordered By: Andrew Ruiz Patient Instructions: Opioid Safety, Pain Management, How to Strain Your Urine (ED), Kidney Stones (ED) Activity Restrictions/Additional Instructions: Thank you for choosing [facility] for your healthcare needs today. Please realize this is an emergency room and that we are providing you with a medical screening exam and this may not be complete and all inclusive of all the testing and or work up that you may need to determine your ailment or severity of your illness. It is very important that you follow up as instructed or that you return to the Emergency Department should you have concerns or if your condition changes or worsens in any way. Recommend that you contact Dr. Underwood for follow-up regarding the kidney stone. Strain urine to collect stone if pain is uncontrolled return to the emergency room Sign Out Sign Out Data: Patient Sign Out occurred on 05/01/23 at 06:08. Patient's care was discussed, and care was transferred from Bree Moyer MD to Andrew Ruiz DO. Coding Level of Care Code ED Railcar Carpenter for Umang Beltran
[2023-05-01 03:50] VITALS: RESP 18; O2SAT 96
[2023-05-01] MEDS: morphine 4 mg/mL SDV 1 mL IVP (03:50)
[2023-05-01] MEDS: sodium chloride 0.9% 1,000 ML 999 ML IV (03:50)
[2023-05-01] MEDS: ondansetron 2 mg/ML SDV 2 mL 4 MG IVP (03:51)
[2023-05-01 03:52] LABS: Basophils % 0.5 %; Eosinophils # 0.1 10^3/uL (0.0-0.8); Eosinophils % 2.1 %; Hematocrit 47.4 % (37-53); Lymphocytes # 2.3 10^3/uL (0.8-4.8); Lymphocytes % 36.6 %; Mean Corpuscular HGB Conc 32.9 g/dL (30-55); Mean Corpuscular Hemoglobin 28.9 pg (27-33); Mean Corpuscular Volume 87.8 fl (82-101); Mean Platelet Volume 10.4 fL (7.4-10.4); Monocytes # 0.9 10^3/uL (0.2-0.9); Monocytes % 14.2 %; Neutrophils # 2.89 10^3/uL (1.8-7.7); Neutrophils % 46.4 %; Nucleated Red Blood Cells % 0 %; Platelet Count 232 10^3/cmm (157-399); Red Cell Distribution Width 13.3 % (12.1-15.1); White Blood Count 6.21 10^3/uL (3.29-11.43)
[2023-05-01 04:13] LABS: Alanine Aminotransferase 28 U/L (0-41); Albumin Level 4.5 g/dL (3.5-5.2); Alkaline Phosphatase 111 U/L (40-130); Anion Gap 14.8 (5-19); Aspartate Amino Transferase 25 U/L (0-40); Blood Urea Nitrogen 19 mg/dL (6-20); Calcium 9.3 mg/dL (8.5-10.5); Carbon Dioxide 27 mmol/L (22-29); Chloride 105 mmol/L (98-107); Globulin 2.7 g/dL (1.3-4.6); Glomerular Filtration Rate 70.3 mL/min (90-130); Glucose 103 mg/dL (65-115); Lipase 27 U/L (13-60); Osmolality Calculated 299 mOsm/kg (285-295); Potassium 3.8 mmol/L (3.5-5.1); Sodium 143 mmol/L (136-145); Total Protein 7.2 g/dL (6.6-8.7)
--- NOTE | 2023-05-01 04:14 | CTR_ITS ---
PROCEDURE INFORMATION: Exam: CT Abdomen And Pelvis Without Contrast Exam date and time: 05/01/2023 4:42 AM Age: 52 years old Clinical indication: Abdominal pain; Generalized; Prior surgery; Surgery date: 6+ months; Surgery type: Status post laparoscopic cholecystectomy (04/11/21). History of colonoscopy. 2019. H/o circumcision. HX of umbilical hernia repair; Additional info: Abd pain TECHNIQUE: Imaging protocol: Computed tomography of the abdomen and pelvis without contrast. Radiation optimization: All CT scans at this facility use at least one of these dose optimization techniques: automated exposure control; mA and/or kV adjustment per patient size (includes targeted exams where dose is matched to clinical indication); or iterative reconstruction. COMPARISON: CT abdomen pelvis wo con [id number] 08/18/2016 2:42 PM RADIATION DOSE METRICS: Total DLP (mGy-cm): 1026.9 FINDINGS: Liver: No acute abnormality or suspicious hepatic mass. Gallbladder and bile ducts: Status post cholecystectomy. No biliary duct dilation. Pancreas: No acute abnormality or obvious pancreatic duct dilation. Spleen: Normal size; no suspicious masses. Adrenal glands: No suspicious adrenal masses. Kidneys and ureters: Unenhanced left kidney demonstrates no stones or hydronephrosis. There is [id number] right hydroureteronephrosis secondary to a 7 mm stone at the right UVJ (series 6, image 116). No stones are identified within the right kidney. There is mild right perinephric stranding. Exophytic mass off the posterior margin of the upper pole of the right kidney compatible with renal cyst measures approximately 2.6 cm. It is without significant change from 2017. Stomach and bowel: No evidence of gastric outlet obstruction or bowel obstruction. Appendix: The appendix is normal. Intraperitoneal space: No free intraperitoneal air, significant ascites, or localized fluid collections. Vasculature: Abdominal aorta has normal caliber. Lymph nodes: No enlarged lymph nodes. Urinary bladder: No significant bladder wall thickening. Reproductive: Visualized portions show no obvious acute abnormality. Bones/joints: No acute fracture. Soft tissues: Unremarkable. CT/CT kidney stone [id number] IMPRESSION: Right hydroureteronephrosis secondary to a 7 mm stone at the right UVJ.
[2023-05-01 04:23] VITALS: RESP 18
[2023-05-01] MEDS: HYDROmorphone 1 mg/mL INJ 1 mL IVP (04:23)
[2023-05-01] MEDS: ketorolac 30 mg/mL INJ IVP (05:05)
[2023-05-01 05:08] VITALS: BP 146/96; PULSE 85; O2SAT 94
[2023-05-01 05:08] LABS: Add Urine Microscopic? NO; Charge for UA Resulting for Rev
[2023-05-01 05:09] LABS: Bilirubin Urine Neg (Negative); Blood Urine Neg (Negative); Glucose Urine UA Norm (Normal); Ketones Urine Negative (Negative); Leukocyte Esterase Urine Negative (Negative); Nitrate Urine Negative (Negative); Protein Urine Neg (Negative); Urine Appearance Clear (CLEAR); Urine Color Yellow (Yellow); Urobilinogen Urine Neg (Negative); pH Urine 6 (5-7)
[2023-05-01 06:08] VITALS: BP 146/96; PULSE 92; O2SAT 95
[2023-05-01 06:34] VITALS: PULSE 77; O2SAT 92
== END 2023-05-01 06:54 | disposition home or self-care (01) ==
PROVIDERS: Emergency Medicine; Emergency Provider Family Medicine
DX: N13.2 Hydronephrosis with renal and ureteral calculous obstruction (principal); I10 Essential (primary) hypertension
CPT/HCPCS: 74176; 80053; 81003; 83690; 85025; 96361; 96374; 96375; 99285; J1170; J1885; J2270; J2405; J7030

== ENCOUNTER 2023-11-07 01:21 | Emergency (ER) | payer MEDICARE, SELFPAY ==
[2023-11-07 01:30] VITALS: BP 157/99; PULSE 88; RESP 18; TEMP 36.7; O2SAT 93; BMI 36.0
[2023-11-07 01:34] VITALS: BP 157/99; PULSE 76; RESP 16; O2SAT 95
[2023-11-07] MEDS: morphine 4 mg/mL SDV 1 mL 6 MG IM (02:05)
[2023-11-07] MEDS: ketorolac 60 mg/2 mL INJ IM (02:05)
[2023-11-07] MEDS: orphenadrine 30 mg/mL Inj 2 mL 60 MG IM (02:06)
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
[2023-11-07 02:54] VITALS: BP 129/86; PULSE 75; RESP 16; O2SAT 92
== END 2023-11-07 03:05 | disposition home or self-care (01) ==
PROVIDERS: Emergency Provider Emergency Medicine
DX: G89.29 Other chronic pain (principal); M54.2 Cervicalgia; I10 Essential (primary) hypertension
CPT/HCPCS: 96372; 99284; J1885; J2270; J2360

== ENCOUNTER 2023-11-10 10:57 | Emergency (ER) | payer MEDICARE, SELFPAY ==
[2023-11-10] VITALS (11 sets, daily range): BP systolic 63–158; BP diastolic 43–100; PULSE 60–83; RESP 12–22; TEMP 36.7; O2SAT 88–98
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
[2023-11-10] MEDS: LORazepam 2 mg/mL INJ 1 mL 1 MG IM (12:31)
[2023-11-10] MEDS: morphine 4 mg/mL SDV 1 mL IM (12:35)
--- NOTE | 2023-11-10 13:06 | XRR_ITS ---
PROCEDURE INFORMATION: Exam: XR Chest Exam date and time: 11/10/2023 1:35 PM Age: 53 years old Clinical indication: Chest pressure; Patient HX: Chest pain; Hypotension TECHNIQUE: Imaging protocol: Radiologic exam of the chest. Views: 1 view. COMPARISON: CR XR chest 1V [id number] 12/24/2022 1:40 PM FINDINGS: Lungs: Unremarkable. No consolidation. Pleural spaces: Unremarkable. No pleural effusion. No pneumothorax. Heart/Mediastinum: Unremarkable. No cardiomegaly. Bones/joints: Mild degenerative disease of bilateral acromioclavicular joints. XR/XR chest 1V portable [id number] IMPRESSION: No acute cardiopulmonary process.
--- NOTE | 2023-11-10 13:06 | ECG_ITS ---
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 Measurements Intervals [place] Rate: 79 P: 57 NH: 129 QRS: 73 QRSD: 85 T: 3 QT: 366 QTc: 422 Interpretive Statements SINUS RHYTHM SEPTAL MYOCARDIAL INFARCTION , OF INDETERMINATE AGE [40+ ms Q WAVE IN V1/V2] Compared to ECG 01/04/2018 01:34:41 Myocardial infarct finding now present T-wave abnormality no longer present Electronically Signed On 11-10-2023 15:07:18 CDT by Yassine Covington M.D. [id number]
--- NOTE | 2023-11-10 13:06 | PC.NURSE ---
upon pt discharge, pt c/o chest pain described as an ache. pt denies cardiac hx. EKG obtained, Dr. Calles notified of pt status change.
[2023-11-10] MEDS: aspirin 81 mg Chew Tablet 324 MG PO (13:12)
[2023-11-10] MEDS: nitroglycerin 0.4 mg sublingual Tablet SUBLINGUAL (13:13)
[2023-11-10 13:26] LABS: Basophils # 0.1 10^3/uL (0.0-0.1); Basophils % 0.9 %; Eosinophils # 0.1 10^3/uL (0.0-0.8); Eosinophils % 1.3 %; Hematocrit 52.2 % (37-53); Lymphocytes # 1.5 10^3/uL (0.8-4.8); Lymphocytes % 22.5 %; Mean Corpuscular HGB Conc 32.4 g/dL (30-55); Mean Corpuscular Hemoglobin 29.4 pg (27-33); Mean Corpuscular Volume 90.8 fl (82-101); Mean Platelet Volume 10.7 fL (7.4-10.4); Monocytes # 0.8 10^3/uL (0.2-0.9); Monocytes % 11.9 %; Neutrophils # 4.21 10^3/uL (1.8-7.7); Nucleated Red Blood Cells % 0 %; Platelet Count 218 10^3/cmm (157-399); Red Blood Count 5.75 10^6/uL (3.85-5.65); Red Cell Distribution Width 13.7 % (12.1-15.1)
--- NOTE | 2023-11-10 13:27 | PC.NURSE ---
Pt states I feel like I am going to black out . pt present pale and diaphoretic, b/p decreased to 63/46. pt placed in trendelenburg, ED physician notified, see MAR.
--- NOTE | 2023-11-10 13:34 | PC.NURSE ---
pt oxygen saturation decreased to 88%, pt c/o not being able to get enough air , 2L NC placed on pt. ED physician notified
[2023-11-10] MEDS: sodium chloride 0.9% 500 ML 999 ML IV (13:36)
[2023-11-10 13:47] LABS: Troponin(5th) Baseline < 6 ng/L (0-15)
[2023-11-10 13:56] LABS: Alanine Aminotransferase 29 U/L (0-41); Albumin Level 4.6 g/dL (3.5-5.2); Alkaline Phosphatase 94 U/L (40-130); Aspartate Amino Transferase 18 U/L (0-40); Blood Urea Nitrogen 21 mg/dL (6-20); Calcium 9.1 mg/dL (8.5-10.5); Carbon Dioxide 22 mmol/L (22-29); Chloride 103 mmol/L (98-107); Globulin 2.3 g/dL (1.3-4.6); Glucose 103 mg/dL (65-115); Lipase 41 U/L (13-60); Osmolality Calculated 289 mOsm/kg (285-295); Sodium 138 mmol/L (136-145); Total Bilirubin 1.9 mg/dL (0.15-1.2); Total Protein 6.9 g/dL (6.6-8.7)
[2023-11-10 14:04] LABS: Anion Gap 17.2 (5-19); Potassium 4.2 mmol/L (3.5-5.1)
--- NOTE | 2023-11-10 14:23 | ECG_ITS ---
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 Measurements Intervals [place] Rate: 71 P: 66 HI: 140 QRS: 74 QRSD: 84 T: -2 QT: 370 QTc: 402 Interpretive Statements SINUS RHYTHM NONSPECIFIC T-WAVE ABNORMALITY Compared to ECG 11/10/2023 13:11:04 T-wave abnormality now present Myocardial infarct finding no longer present Electronically Signed On 11-10-2023 15:08:04 CDT by Yassine Covington M.D. [id number] f
--- NOTE | 2023-11-10 14:35 | CTR_ITS ---
PROCEDURE INFORMATION: Exam: CT Cervical Spine Without Contrast Exam date and time: 11/10/2023 3:05 PM Age: 53 years old Clinical indication: Neck pain TECHNIQUE: Imaging protocol: Computed tomography of the cervical spine without contrast. Radiation optimization: All CT scans at this facility use at least one of these dose optimization techniques: automated exposure control; mA and/or kV adjustment per patient size (includes targeted exams where dose is matched to clinical indication); or iterative reconstruction. COMPARISON: CR XR cervical spine 3V* [id number] 12/24/2022 1:40 PM RADIATION DOSE METRICS: Total DLP (mGy-cm): 241.07 FINDINGS: Tubes, catheters and devices: Post bilateral cochlear implants. Bones: No acute fracture. Normal alignment. Mild right C3-C4 uncovertebral joint hypertrophy with mild neural foraminal narrowing. No severe spinal canal stenosis. No significant neural foraminal narrowing. Lungs: Lung apices are normal. Soft tissues: Nuchal ligament calcifications. CT/CT cervical spin wo con* [id number] IMPRESSION: Mild right uncovertebral joint hypertrophy at C3-C4 with mild neural foraminal narrowing. No severe thecal sac compression.
--- NOTE | 2023-11-10 14:35 | CTR_ITS ---
PROCEDURE INFORMATION: Exam: CTA Chest With Contrast Exam date and time: 11/10/2023 3:10 PM Age: 53 years old Clinical indication: Pain; Chest pressure; Additional info: Aortic dissection TECHNIQUE: Imaging protocol: Computed tomographic angiography of the chest with contrast. Exam focused on the arteries. 3D rendering (Not supervised by radiologist): MIP and/or 3D reconstructed images were created by the technologist. Radiation optimization: All CT scans at this facility use at least one of these dose optimization techniques: automated exposure control; mA and/or kV adjustment per patient size (includes targeted exams where dose is matched to clinical indication); or iterative reconstruction. Contrast material: OMNI 350; Contrast volume: 100 ml; Contrast route: INTRAVENOUS (IV); COMPARISON: CR (CHEST, ) 11/10/2023 1:35 PM RADIATION DOSE METRICS: Total DLP (mGy-cm): 1081.79 FINDINGS: Pulmonary arteries: Normal. No pulmonary emboli. Aorta: Unremarkable. No aortic aneurysm. No aortic dissection. Lungs: Bilateral lower lobe atelectatic changes. No acute infiltrates. Pleural spaces: Unremarkable. No pneumothorax. No pleural effusion. Heart: Unremarkable. No cardiomegaly. No pericardial effusion. Lymph nodes: Calcified left hilar lymph nodes. No enlarged mediastinal lymph nodes. Gallbladder and biliary ducts: Post cholecystectomy. Kidneys: Simple cyst in the upper pole of the right kidney measuring 2 cm. Bones/joints: Mild curvature of the thoracic spine convex to the right. Mild multilevel anterior osteophytes of the thoracic spine. Soft tissues: Unremarkable. CT/CT angio chest [id number] IMPRESSION: No pulmonary embolism. No aortic dissection. No acute infiltrates. COMMENTS: Consistent with the [employer]'s Incidental Findings Committee white paper (J Am Romel Radiol 2018): Any incidental renal lesion less than 1 cm or classified as too small to characterize, or any incidental cystic renal lesion characterized as simple-appearing, is likely benign. No follow-up imaging is recommended for these lesions per consensus recommendations based on imaging criteria.
[2023-11-10] MEDS: diphenhydrAMINE 50 mg/mL SDV 1mL IVP (14:55)
[2023-11-10] MEDS: methylPREDNISolone sod succ 125 mg/2 mL INJ IVP (14:56)
[2023-11-10] MEDS: famotidine 20 mg/2 mL INJ 40 MG IVP (14:58)
[2023-11-10] MEDS: iohexol 350 mg/mL 500 mL Btl (per mL) IV (15:17)
[2023-11-10 16:09] LABS: Troponin 5 2HR Delta 0.00001 ABS# (0-10)
== END 2023-11-10 16:45 | disposition home or self-care (01) ==
PROVIDERS: Emergency Provider Emergency Medicine
DX: M54.2 Cervicalgia (principal); R07.9 Chest pain, unspecified; K21.9 Gastro-esophageal reflux disease without esophagitis; I10 Essential (primary) hypertension
CPT/HCPCS: 36415; 71045; 71275; 72125; 80053; 83690; 84484; 85025; 85378; 93005; 96372; 96374; 96375; 99285; J1200; J2060; J2270; J2919; J3490; J7040

== ENCOUNTER 2024-10-29 13:53 | Emergency (ER) | payer MEDICARE, SELFPAY ==
--- OUTSIDE RECORDS SUMMARY | 2024-01-06 04:00 | XMS_ITS ---
Author Organization [facility] Address [address] [place] [address] Care Team Providers Care Building Guard Deputy Sheriff Name Role Phone Nohemy Nieto Primary Care [...] 0 01/06/2024 Provider Migration Plan Of Treatment No Information Progress Notes * MATT CURRAN ADOB:[birth year] (54 yo M)Acc No.[id number]:01/06/2024 Patient: MATT CHRISTOPHER :1970 A ge:53 Y S ex:Male Address:[address] [place] [phone] Subjective: * Chief Complaints: * E MR-Gerardo [...]
--- OUTSIDE RECORDS SUMMARY | 2024-08-20 12:00 | XMS_ITS ---
Author Organization [facility] Address [address] [place] [address] Care Team Providers Care C Java Developer Name Role Phone Tiffanie Coulter Primary Care Provider DESTINY Aparicio Unavailable [phone] Eulalio Camilo Unavailable [phone] REASON FOR VISIT w/safety labs Encounters Encounter Location Date Provider Diagnosis [facility], [facility] [address] [place] [address] 08/20/2024 Eulalio Camilo Plan Of Treatment No Information Progress Notes * Jaspreet CURRANDOB:1970 (54 yo M)Acc No.[id number]:08/20/2024 Progress Notes Patient: Jaspreet CHRISTOPHER Provider: Meka Camilo APRN :1970 A ge:53 Y S ex:Male Date:08/20/2024 Address:[address] [place], [place] [phone] Pcp:Tiffanie Coulter Subjective: * Chief Complaints: * 1 . W/safety labs. * Medical History: Objective: * Vitals: Assessment: Plan: * Treatment: * Billing Information: * Visit Code: * Procedure Codes: * Electronic signature of Vel Camilo APRN on 10/29/2024 at 02:01 PM CDT Sign off status: Pending * Provider: Meka Camilo APRN Date: 08/20/2024 Generated for Tamera amador/Zack/eTransmitting on: 10/29/2024 02:01 PM CDT
--- OUTSIDE RECORDS SUMMARY | 2024-09-03 12:00 | XMS_ITS ---
Author Organization [facility] Address [address] [facility] [address] Care Team Providers Care Security Police Name Role Phone Tiffanie Coulter Primary Care Provider DESTINY Aparicio Unavailable [phone] Eulalio Camilo Unavailable [phone] REASON FOR VISIT 8-12 wks w/ new labs Encounters Encounter Location Date Provider Diagnosis [facility] [address] [facility] [place] [address] 09/03/2024 Eulalio Camilo Plan Of Treatment No Information Progress Notes * Jaspreet CURRANDOB:1970 (54 yo M)Acc No.[id number]:09/03/2024 Progress Notes Patient: Jaspreet CHRISTOPHER Provider: Meka Camilo APRN :1970 A ge:53 Y S ex:Male Date:09/03/2024 Address:[address] [place], [place] [phone] Pcp:Tiffanie Coulter Subjective: * Chief Complaints: * 1 . 8-12 wks w/ new labs. * Medical History: Objective: * Vitals: Assessment: Plan: * Treatment: * Billing Information: * Visit Code: * Procedure Codes: * Electronic signature of Vel Camilo APRN on 10/29/2024 at 02:02 PM CDT Sign off status: Pending * Provider: Meka Camilo APRN Date: 09/03/2024 Generated for Dellai ng/Fapolinag/eTransmitting on: 0 10/29/2024 02:02 PM CDT
--- NOTE | 2024-10-29 13:56 | XR_ITS ---
WS: [id number] Portable AP upright chest, 10/29/2024 Clinical Data: sob Comparison: Portable chest, 11/10/2023 Findings: No nodules, masses or effusions are seen. The heart is normal. The pulmonary vascularity is not increased. No pneumonia or pneumothorax is seen. XR/XR chest 1V portable [id number] Impression: Negative chest.
--- OUTSIDE RECORDS SUMMARY | 2024-10-29 14:02 | XMS_ITS | Patient Health Record ---
Author Organization [facility] Address [address] [place] [address] Care Team Providers Care Building Admin Name Role Phone Nohemy Nieto Primary Care Provider NOHEMY NIETO Unavailable Unavailable Dusty Varma Unavailable [phone] Migration, Provider Unavailable Unavailable Mitul Watson Unavailable [phone] Allergies Allergen (clinical drug ingredient) Drug/Non Drug Allergy documented on EMR Reaction Allergy Type Onset Date Status diazepam Valium Unknown Drug Allergy Active Contrast Allergy PreMed Pack hives, nausea, lower BP and HR Drug Allergy Active Iodinated contrast media (substance) Iodinated Diagnostic Agents Unknown Drug Allergy Active Results Component Value Reference Range Notes UA Without [place], [place] - [address] Reviewed date:06/11/2024 02:50:52 PM Interpretation: Performing Lab: Notes/Report: Color addy Clarity clear Glucose negative Bili negative Ketones negative Sp [place] 1.030 Blood negative pH 6.0 Protein negative Urobili negative Nitrites negative Leukocytes negative Reason For Referral Reason Chronic lumbar pain Diagnosis 1 Lumbar pain (M54.50) Diagnosis 2 Bilateral leg parest hesia (R20.2) Referring Provider First Name Nohemy Referring Provider Last Name Gerson Referring Provider Speciality Nurse Oneyda titioner Referred Organization [facility] [place] Referred Provider Dusty Varma Referred Address [address],[place],[address], Referral Priority Routine Reason Chronic lumbar pain Diagnosis 1 Lumbar pain (M54.50) Diagnosis 2 Bilateral leg parest hesia (R20.2) Referral Organization [facility] Referring Provider First Name Nohemy Referring Provider Last Name Gerson Referring Provider Speciality Nurse Oneyda chavez Referred Organization [facility] [place] Referred Provider Dusty Varma Referred Address [address],[place],[address],[place] Referred Provider Specialty Neurosurgery General Notes Chantemaryannesalty Adriana 06/12 09:20:10 AM >sent Referral Priority Routine Reason Colon Cancer Screeni ng , Gerd Called-See TE Diagnosis 1 Gastroesophageal ref lux disease without esophagitis (K21.9) Diagnosis 2 Colon cancer screeni ng (Z12.11) Referring Provider First Name Nohemy Referring Provider Last Name Gerson Referring Provider Speciality Nurse Oneyda chavez Referred Organization [facility] Referred Provider Gutierrez [facility] Referred Address [address] [place],[address] Referred Provider Specialty Gastroentero logy Referral Priority Routine Reason Colon Cancer Screeni ng Gerd Diagnosis 1 Colon cancer screeni ng (Z12.11) Diagnosis 2 Gastroesophageal ref lux disease without esophagitis (K21.9) Referral Organization [facility] Referring Provider First Name Nohemy Referring Provider Last Name Gerson Referring Provider Speciality Nurse Oneyda chavez Referred Organization [facility] Referred Provider Flakito Winchester Referred Address [address] [place],[address] Referred Provider Specialty Gastroentero logy Referral Priority Routine Medications Medication SIG (Take, Route, Frequency, Duration) Notes Start Date End Date Status Testosterone Cypionate 200 MG/ML Solution 1.5 mL Intramuscular every; Duration: 14 days please send with all injection supplies, and alcohol wipes] 04/03/2022 Not-Taking Cyclobenzaprine HCl 10 MG Tablet 1 tablet at bedtime as needed Orally Three times a day 06/11/2024 Active Gabapentin 300 MG Capsule Take 1 capsule by mouth twice daily; Duration: 90 Not-Taking Lisinopril 20 MG Tablet 1 tablet Orally Twice daily; Duration: 90 days Not-Taking amLODIPine Besylate 5 MG Tablet 1 tablet Oral once daily in evening for blood pressure; Duration: 90 days Not-Taking Omeprazole 20 MG Capsule Delayed Release 1 capsule 30 minutes before morning meal Orally Once a day; Duration: 30 days 04/16/2023 Not-Taking traMADol HCl 50 MG Tablet 1 tablet as needed Orally Twice a day 07/10/2024 Active predniSONE 10 MG Tablet 3 tablet with food or milk Orally Once a day 06/11/2024 Active SUMAtriptan Succinate 50 MG Tablet 1 tablet as needed, may take second dose at least 2 hours after first dose up to 4 tablets per day as needed Orally Active Social History Tobacco Use: Social History Observation Description Date Details (start date - stop date) Never Smoker NA - NA Social History Depression Screening Social Info Question Answer Notes PHQ-9 Little interest or pleasure in doing thin gs Not at all Feeling down, depressed, or hopeless Not at all Trouble falling or staying asleep, or sleeping t oo much Not at all Feeling tired or having little energy Not at all Poor appetite or overeating Not at all Feeling bad about yourself, or that you are a failure, or have let yourself or your family down Not at all Trouble concentrating on thi ngs, such as reading the newspaper or watching television Not at all Moving or speaking so slowly that other people could have noticed. Or the opposite ? being so fidgety or restless that you have been moving around a lot more than usual Not at all Thoughts that you would be b christian off , or of hurting yourself in some way Not at all Total Score 0 Drugs/Alcohol: Social Info Question Answer Notes Alcohol Screen (Audit-C) Did you have a drink containing alcohol in the past year? No Points 0 Interpretation Negative Drugs Have you used drugs other than those for medical reasons in the past 12 months? No Caffeine Intake: 2-3 cups per day Tobacco Use: Social Info Question Answer Notes xTobacco Use/Smoking Are you a nonsmoker Additional Details Category Social Info Options Details Drugs/Alcohol: Do you smoke marijuana? De nies Do you drink alcohol? No Migrated Social History Migrated Social History Alcoholic [...] if ever smoked, Working currently? - No Section Notes: 12/19/21 PHQ9 12/19/21 PHQ9 12/19/21 PHQ9 12/19/21 PHQ9 02/20/23 PHQ9 12/19/21 PHQ9 02/20/23 PHQ9 06/11/24 PHQ9 12/19/21 PHQ9 02/20/23 PHQ9 Problems Problem Type SNOMED Code ICD Code Onset Dates Problem Status W/U Status Risk Notes Problem Chronic pain (64443759) Other chronic pain (G89.29) Active confirmed Problem Asymptomatic microscopic hematuria (85814694765851345) Asymptomatic microscopic hematuria (R31.21) Active confirmed Problem Essential hypertension (08384930) Essential hypertension (I10) Active confirmed Problem Male hypogonadism (64429285) Hypogonadism in male (E29.1) Active confirmed Problem Gastroesophageal reflux disease without esophagitis (687893289) Gastroesophageal reflux disease without esophagitis (K21.9) Active confirmed Problem Nephrolithiasis (02605426) Nephrolithiasis (N20.0) Active confirmed Problem Obesity (334744970) Obesity (BMI 30-39.9) (E66.9) Active confirmed Problem Prostate specific antigen measurement (39236677) Screening PSA (prostate specific antigen) (Z12.5) Active confirmed Problem Migraine (86999109) Migraine (G43.909) Active c onfirmed Problem Morbid obesity (297021071) Morbid obesity (E66.01) Active confirmed Problem Gastroesophageal reflux disease (328603913) GERD (gastroesophageal reflux disease) (K21.9) Active confirmed Problem Kidney stone (30615800) Kidney stones (N20.0) Active confirmed Problem 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, 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) Active confirmed Problem Skin sensation disturbance (00354703) Bilateral leg paresthesia (R20.2) Active confirmed Vital Signs Heart Rate 85 /min 06/11/2024 Temperature 98.1 degrees Fahrenheit 06/11/2024 Respiratory Rate 20 /min 06/11/2024 Blood pressure diastolic 78 mm Hg 06/11/2024 Oximetry 99 % 06/11/2024 Height-cm 170.18 cm 06/11/2024 Weight-kg 109.77 kg 06/11/2024 Height 67 in 06/11/2024 Blood pressure systolic 118 mm Hg 06/11/2024 Weight 242 lbs 06/11/2024 BMI 37.9 kg/m2 06/11/2024 Encounters Encounter Location Date Provider Diagnosis [facility] Office [address] [address] 06/11/2024 Nohemy Gerson Lumbar pain M54.50 ; Bilateral leg paresthesia R20.2 ; Migraine G43.909 ; Morbid obesity E66.01 and Depression screen Z13.31 [facility]rated[facility]Facility 0 0 01/05/2024 Provider Migration [facility]rated[facility]Facility 0 0 01/06/2024 Provider Migration [facility] [address] [place] [address] 06/23/2024 Nohemy Nieto [facility] [address] [address] 07/10/2024 Nohemy [place]on Lumbar pain M54.50 [facility] [address] [place] [address] 08/18/2024 Mitul Watson Assessments Encounter Date Diagnosis (ICD Code) Assessment Notes Treatment Notes Treatment Clinical Notes Section Notes 06/11/2024 Lumbar pain (ICD-10 - M54.50) 06/11/2024 Bilateral leg paresthesia (ICD-10 - R20.2) 07/10/2024 Lumbar pain (ICD-10 - M54.50) 06/11/2024 Migraine (ICD-10 - G43.909) 06/11/2024 Morbid obesity (ICD-10 - E66.01) 06/11/2024 Depression screen (ICD-10 - Z13.31) Plan Of Treatment Pending Test Test Name Order Date CBC w\ Auto Diff 31727 08/15/2021 Hepatic Function Panel 41837 08/15/2021 PSA Diagnostic--83343 08/15/2021 Testosterone Total 31261 08/15/2021 US Renal w/bladder-85705 08/15/2021 Abdomen AP-94975 08/15/2021 Abdomen AP-97607 01/24/2022 Insurance Providers Payer Name Payer Address Payer Phone Subscriber Number Group Number Insured Name Patient Relationship to Insured Coverage Start Date Coverage End Date [facility] [place] [address] [place] [address] [phone] [id number] MATT CURRAN Self - patient is the insured [place] Replacement [address] [place] [phone] [id number] MATT CURRAN Self - patient is the insured Medications Administered Medication Instructions Date of Administration Dosage Notes Ketorolac Tromethamine 02/20/2023 60 mg nd [id number] Patient tolerated well. Medical (General) History Medical History History ICD Code Hypertension Arthritis Back injury Cochlear implants Head trauma Testosterone deficiency in male E29.1 Right ankle sprain 08/2021 Surgical History Surgery Date(Month/Year) Cochlear implant cataract retina left arm elbow surgery (removed bursa sa c) 2020 blepharoplasty, bilatral 07/2021 Cholycystectomy 04/11/21 Hospitalization History Reason Date(Month/Year) fall 2017
--- OUTSIDE RECORDS SUMMARY | 2024-10-29 14:02 | XMS_ITS | Clinical Summary ---
Author Organization [facility] Address [address] Attn: [place] [address] Care Team Providers Care Boiler Coverer Name Role Phone Robel Mahoney MD Primary Care Provider [phone] Allergies Active Allergy Reactions Criticality Noted Date Comments Diazepam Hallucination Low 01/06/2010 Iodinated Contrast Media Rash,Hypotension Medium 01/10 Medications lisinopriL (PRINIVIL) 20 mg tablet Take 20 mg by mouth daily. 12/24/2017 Active carisoprodoL (SOMA) 250 mg tablet Take 250 mg by mouth. 08/01/2018 Active Active Problems Problem Noted Date Diagnosed Date Tinnitus 08/09/[address] 11/04/2010 Sensorineural hearing loss, bilateral 04/05/2010 Syncope SAH (subarachnoid hemorrhage) Immunizations Immunization Administration Dates Next Due (PNEUMOVAX 23)(50 YRS UP) PN EUMOCOCCAL POLYSACCHARIDE (PPV23) 0.5 ML, IM 12/07/2009 HIB, Unspecified Formulation 12/07/2009 Meningococcal ACWY Vaccine, Unspecified Formulat ion 12/07/2009 Social History Tobacco Use Types Packs/Day Years Used Date Smoking Tobacco: Never Alcohol Use Standard Drinks/Week Comments No 0 (1 standard drink = 0.6 oz pur e alcohol) Sex and Gender Information Value Date Recorded Sex Assigned at Not on file 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 Gender Identity Not on file Sexual Orientation Not on file Last Filed Vital Signs Vital Sign Reading Time Taken Comments Blood Pressure 120/70 08/01/2018 10:13 AM CDT Pulse 96 08/01/2018 10:13 AM CDT Temperature 36.6 C (97.8 F) 12/26/2017 4:00 PM CDT Respiratory Rate 18 12/26/2017 4:00 PM CDT Oxygen Saturation - - Inhaled Oxygen Concentration - - Weight 108.9 kg (240 lb) 08/01/2018 10:13 AM CDT Height 170.2 cm (5' 7 ) 08/01/2018 10:13 AM CDT Body Mass Index 37.59 08/01/2018 10:13 AM CDT Plan of Treatment Health Maintenance Due Date Last Done Comments DTAP/TDAP/TD VACCINES (1 - Tdap) 1989 HEPATITIS B VACCINES (1 of 3 - 19+ 3-dose series) 09/09 COLORECTAL SCREENING 09/23/2015 Colorectal Cancer Screening 09/23/2015 FIT-DNA Q 3 years 09/23/2015 FIT/FOBT Q 1 year 09/23/2015 Flex Sig/CT Colonography Q 5 years 09/23/2015 ZOSTER VACCINE (1 of 2) 2020 INFLUENZA VACCINE (#1) 2024 Medical Devices Implanted Type Area Traffic Controller Cable Device Identifier Shelf Expiration Date Model / Serial / Lot Cochlear Nucleus 5 Model [id number] - [id number] Implanted:Qty: 1 on 01/10/2010 Ear Right: Ear [employer] 11/03/2011 [id number] / [id number] / N/A Description:MODEL CI512 Cochlear Nucleus 5 Model [id number] - [id number] Implanted:Qty: 1 on 10/19/2011 by Sami Smith DO Ear Left: Ear [employer] 06/29/2013 [id number] / [id number] / N/A Description:c124RE ([place] Insurance MEDICAID [facility] MEDICARE HMO Care Teams Boiler Coverer Relationship Specialty Start Date End Date Robel Mahoney MD [address] [id number] PCP - General Family Practice 06/18/18
--- OUTSIDE RECORDS SUMMARY | 2024-10-29 14:03 | XMS_ITS | Patient Health Record ---
Author Organization [facility] Address [address] [place] [address] Care Team Providers Care Internal Security Manager Name Role Phone Tiffanie Coulter Primary Care Provider DESTINY Aparicio Unavailable [phone] RUIZ YOU Unavailable [phone] Eulalio Camilo Unavailable [phone] Allergies Allergen (clinical drug ingredient) Drug/Non Drug Allergy documented on EMR Reaction Allergy Type Onset Date Status diazepam Valium Unknown Drug Allergy Active Iodinated contrast media (substance) Iodinated Diagnostic Agents severe Drug Allergy Active Results Component Value Reference Range Notes Hepatic Function Panel Reviewed date:06/23/2024 01:15:28 PM Interpretation: Performing Lab: Notes/Report: Use of this assay is not recommended for patients undergoing treatment with eltrombopag due to the potential for falsely elevated results. Testing performed at: [address] [place] [address] CLIA ID [id number] Total Protein 6.8 5.8-8.0 G/DL Albumin 4.8 3.2-4.8 G/DL Bili Total 1.5 .3-1.2 MG/DL Bili Direct .50 .05-.40 MG/DL Alk Phos 102 46-116 AST/SGOT 24 15-37 UNIT/L ALT/SGPT 23 12-78 UNIT/L Testosterone Total Reviewed date:06/23/2024 01:16:16 PM Interpretation: Performing Lab: Notes/Report: Testoster Tot 293.73 87.00-780.00 NG/DL Performed on the WiTricity IM Analyzer Testing performed at: [address] [place] [address] CLIA ID [id number] US Renal--86472 Reviewed date:06/23/2024 01:16:42 PM Interpretation: Performing Lab: Notes/Report: See Below For Report US Renal Read See Below For Report Jodi AP Reviewed date:06/23/2024 02:24:55 PM Interpretation: Performing Lab: Notes/Report: See Below For Report Abdomen AP Read See Below For Report Reason For Referral No Information Medications Medication SIG (Take, Route, Frequency, Duration) Notes Start Date End Date Status Omeprazole Active Testosterone Cypionate 200 MG/ML 1.5ml Intramuscular q 2wks; Duration: 30 days Please supply all injection supplies including alcohol wipes 05/03/2023 Active predniSONE 10 MG 1 tablet with food or milk Orally Once a day Active Gabapentin 300 MG Take 1 capsule by mouth twice daily; Duration: 90 Not-Taking Cyclobenzaprine HCl 10 MG 1 tablet at bedtime as needed Orally Once a day Active Lisinopril 20 MG 1 tablet Orally Twice daily; Duration: 90 days Not-Taking Testosterone Cypionate 200 MG/ML 1 mL Intramuscular q2wks; Duration: 30 days 06/27/2024 Active SUMAtriptan Succinate 50 MG 1 tablet as needed, may take second dose at least 2 hours after first dose up to 4 tablets per day as needed Orally Once a day Active amLODIPine Besylate 5 MG 1 tablet Oral once daily in evening for blood pressure; Duration: 90 days Not-Taking Testosterone Cypionate 200 MG/ML 1.5 mL Intramuscular every; Duration: 14 days please send with all injection supplies, and alcohol wipes] 04/03/2022 Not-Taking traMADol HCl 50 MG 1 tablet as needed Orally Once a day Active Percocet 5-325 MG 1 tablet as needed Orally every 6 hrs Not-Taking Testosterone Cypionate 200 MG/ML 1.5 ml Intramuscular every two weeks; Duration: 60 days please send enough supplies for injections including alcohol wipes 01/26/2023 Not-Taking Tamsulosin HCl 0.4 MG 1 capsule Orally Once a day Not-Taking Promethazine HCl Not -Taking Social History Tobacco Use: Social History Observation Description Date Details (start date - stop date) Never Smoker NA - NA Tobacco Control (Standard) Question Answer Notes Tobacco use: Nonsmoker Section Notes: 12/19/21 PHQ9 12/19/21 PHQ9 12/19/21 PHQ9 12/19/21 PHQ9 12/19/21 PHQ9 12/19/21 PHQ9 12/19/21 PHQ9 Problems Problem Type SNOMED Code ICD Code Onset Dates Problem Status W/U Status Risk Notes Problem Chronic pain (99731865) Other chronic pain (G89.29) Active confirmed Problem Calculus of kidney (36379492) Calculus of kidney (N20.0) Active confirmed Problem Nocturia (196458561) Nocturia (R35.1) Active confirmed Problem Essential hypertension (29655933) Essential hypertension (I10) Active confirmed Problem Asymptomatic microscopic hematuria (54765367298764080 ) Asymptomatic microscopic hematuria (R31.21) Active confirmed Problem Lower urinary tract symptoms due to benign prostatic hypertrophy (07144801222353) Benign localized hyperplasia of prostate with urinary obstruction (N40.1) Active confirmed Problem Benign prostatic hypertrophy without outflow obstruction (351777864) BPH loc w/o ur obs/LUTS (N40.0) Active confirmed Problem Nephrolithiasis (91563146) Nephrolithiasis (N20.0) Active confirmed Problem Constipation (09791294) Constipation (K59.00) Active confirmed Problem Male hypogonadism (77484963) Hypogonadism in male (E29.1) Active confirmed Problem 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, 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) Active confirmed Problem Kidney stone (24955280) Kidney stones (N20.0) Active confirmed Problem Lower abdominal pain (14818235) Lower abdominal pain (R10.30) Active confirmed Problem Obesity (708357091) Obesity (BMI 30-39.9) (E66.9) Active confirmed Problem Prostate specific antigen measurement (24775780) Screening PSA (prostate specific antigen) (Z12.5) Active confirmed Vital Signs Heart Rate 89 /min 06/23/2024 Height-cm 170.18 cm 06/23/2024 Blood pressure diastolic 102 mm Hg 06/23/2024 Weight-kg 102.06 kg 06/23/2024 Height 67 in 06/23/2024 Blood pressure systolic 142 mm Hg 06/23/2024 Weight 225 lbs 06/23/2024 BMI 35.24 kg/m2 06/23/2024 Encounters Encounter Location Date Provider Diagnosis [facility] [address] [facility] [place] [address] 06/23/2024 RUIZ YOU Nephrolithiasis N20. 0 ; Hypogonadism in male E29.1 and Screening PSA (prostate specific antigen) Z12.5 [facility] [address] [facility] [place] [address] 04/24/2024 RUIZ YOU Nephrolithiasis N20. 0 ; Screening PSA (prostate specific antigen) Z12.5 and Hypogonadism in male E29.1 [facility] [address] [facility] [place] [address] 05/21/2024 DESTINY GARIBAY [facility] [address] [facility] [place] [address] 06/26/2024 RUIZ YOU Hypogonadism in male E29.1 and Prostate cancer screening Z12.5 Assessments Encounter Date Diagnosis (ICD Code) Assessment Notes Treatment Notes Treatment Clinical Notes Section Notes 04/24/2024 Nephrolithiasis (ICD-10 - N20.0) 06/23/2024 Nephrolithiasis (ICD-10 - N20.0) I have independently reviewed KUB and STEPHAN imaging, along with radiologic report. I reviewed images and discussed findings with patient in the exam room. He does not have any residual stones on KUB or STEPHAN today. Continue stone prevention as previously outlined. He declines metabolic urine analysis. Repeat KUB in 1 year. 06/23/2024 Hypogonadism in male (ICD-10 - E29.1) Pt with long h/o hypogonadism. He has been off TRT for >6m with return of symptoms. He had lab drawn this morning. Results are all pending. He wanted to discuss different treatment options. We reviewed topicals, injectables, implantable pellets, and oral replacement options. Pros and cons of each reviewed. He will consider and let us know which he chooses when we call with lab results. RTC for repeat lab and reassessment in 8-12w. 06/26/2024 Hypogonadism in male (ICD-10 - E29.1) 04/24/2024 Screening PSA (prostate specific antigen) (ICD-10 - Z12.5) 06/26/2024 Prostate cancer screening (ICD-10 - Z12.5) 06/23/2024 Screening PSA (prostate specific antigen) (ICD-10 - Z12.5) 04/24/2024 Hypogonadism in male (ICD-10 - E29.1) Plan Of Treatment Pending Test Test Name Order Date [id number] KUB, X-Ray: Abdomen, Kidney, Urete r, bladder 04/24/2024 Urinalysis, Routine 06/23/2024 Hepatic Function Panel (7) 05/24/2023 CBC 05/24/2023 X ray : Kidneys, Ureters and Bladder (KU B) 05/24/2023 Testosterone, total 05/24/2023 PSA, total (cpt 21037) 05/24/2023 Liver Function Test (LFT) 04/24/2024 Liver Function Test (LFT) 06/26/2024 Renal Ultrasound STEPHAN 60889 04/24/2024 Renal Ultrasound STEPHAN 93727 05/24/2023 CBC w\ Auto Diff 84712 08/15/2021 Hepatic Function Panel 40246 08/15/2021 PSA Diagnostic--36921 08/15/2021 Testosterone Total 75087 08/15/2021 US Renal w/bladder-99220 08/15/2021 Abdomen AP-78104 01/24/2022 Abdomen AP-83298 08/15/2021 CBC w/ Auto Diff 04/24/2024 Estradiol Level 04/24/2024 Estradiol Level 06/26/2024 Testosterone Total 06/26/2024 Testosterone Total 04/24/2024 PSA-Diagnostic 06/26/2024 PSA-Diagnostic 04/24/2024 Hematocrit 06/26/2024 Future Test Test Name Order Date CBC w\ Auto Diff 67906 01/24/2022 Estradiol Level 13837 01/24/2022 Testosterone, Bio and SHBG, Adult Male 8 4403, [address]23 01/24/2022 CBC w\ Auto Diff 09007 09/07/2022 Hepatic Function Panel 73364 09/07/2022 PSA Diagnostic--34518 09/07/2022 Testosterone Total 25647 09/07/2022 HEPATIC FUNCTION PANEL (75299) HEMATOCRIT (509) 08/05/2024 ESTRADIOL (4021) 08/05/2024 TESTOSTERONE, TOTAL, MALES (ADULT), [place] ( 873) 08/05/2024 PSA, TOTAL (5363) 08/05/2024 Insurance Providers Payer Name Payer Address Payer Phone Subscriber Number Group Number Insured Name Patient Relationship to Insured Coverage Start Date Coverage End Date [place] Medicaid [address] [place], [place] [id number] Jaspreet Charlton Self - patient is the insured Medical (General) History Medical History History ICD Code Hypertension Arthritis Back injury Cochlear implants Head trauma Testosterone deficiency in male E29.1 Right ankle sprain 08/2021 Surgical History Surgery Date(Month/Year) Cochlear implant cataract retina left arm elbow surgery (removed bursa sa c) 2020 blepharoplasty, bilatral 07/2021 Cholycystectomy 04/11/21 lithotripsy 05/11/2023 Hospitalization History Reason Date(Month/Year) fall 2017
[2024-10-29 14:11] VITALS: BP 138/89; PULSE 94; RESP 18; TEMP 37.3; O2SAT 97
[2024-10-29 15:48] LABS: Hematocrit 47.1 % (37-53); Hemoglobin 15.40 g/dL (11.27-16.99); Mean Corpuscular HGB Conc 32.7 g/dL (30-55); Mean Corpuscular Hemoglobin 28.6 pg (27-33); Mean Corpuscular Volume 87.4 fl (82-101); Nucleated Red Blood Cells % 0 %; Platelet Count 285 10^3/cmm (157-399); Red Blood Count 5.39 10^6/uL (3.85-5.65); White Blood Count 9.74 10^3/uL (3.29-11.43)
--- NOTE | 2024-10-29 15:49 | ECG_ITS ---
[facility] Test Date: 2024-10-29 Pat Name: Jaspreet Charlton Department: Room: Gender: Male Klystrom Tube Tester: : 1970 Requested By: Bree Moyer Order Number: [id number] Andino MD: Yassine Covington M.D. Measurements Intervals [place] Rate: 87 P: 41 GA: 133 QRS: 59 QRSD: 84 T: 12 QT: 367 QTc: 442 Interpretive Statements SINUS RHYTHM POSSIBLE LEFT ATRIAL ENLARGEMENT [-0.1mV P-WAVE IN V1/V2] NONSPECIFIC T-WAVE ABNORMALITY Compared to ECG 11/10/2023 14:23:22 No significant changes Electronically Signed On 11-01-2024 08:51:52 CDT by Yassine Covington M.D. [email or web address]
[2024-10-29 16:26] LABS: Alanine Aminotransferase 23 U/L (0-41); Albumin Level 4.5 g/dL (3.5-5.2); Alkaline Phosphatase 103 U/L (40-130); Anion Gap 13.6 (5-19); Aspartate Amino Transferase 18 U/L (0-40); Blood Urea Nitrogen 11 mg/dL (6-20); Calcium 9.1 mg/dL (8.5-10.5); Carbon Dioxide 27 mmol/L (22-29); Chloride 102 mmol/L (98-107); Globulin 2.8 g/dL (1.3-4.6); Glucose 74 mg/dL (65-115); NT Pro B Type Natriuretic Pept < 36 pg/mL (0-125); Osmolality Calculated 286 mOsm/kg (285-295); Potassium 3.6 mmol/L (3.5-5.1); Sodium 139 mmol/L (136-145); Total Protein 7.3 g/dL (6.6-8.7)
== END 2024-10-29 17:38 | disposition left against medical advice (07) ==
PROVIDERS: Emergency Medicine; Emergency Provider Family Medicine
DX: Z01.89 Encounter for other specified special examinations (principal); Z53.21 Procedure and treatment not carried out due to patient leaving prior to being seen by health care provider; R06.02 Shortness of breath; R94.31 Abnormal electrocardiogram [ECG] [EKG]
CPT/HCPCS: 36415; 71045; 80053; 83880; 85025; 93005; 99285

== ENCOUNTER 2025-01-01 11:21 | Outpatient (CLI) | payer MEDICARE, MEDICAID, SELFPAY ==
--- NOTE | 2025-01-01 11:25 | XR_ITS ---
WS: [id number] Chest 2 views, 01/01/2025 Clinical Data: DYSPNEA Comparison: Portable chest, 10/29/2024 Findings: No nodules, masses or effusions are seen. The heart is normal. The pulmonary vascularity is not increased. No pneumonia or pneumothorax is seen. XR/XR chest 2V* 97286 Impression: Negative chest.
== END 2025-01-01 11:22 | disposition home or self-care (01) ==
LOC: RAD 11:23
PROVIDERS: Visit Provider Nurse Practitioner Family
DX: R06.00 Dyspnea, unspecified (principal)
CPT/HCPCS: 71046

== ENCOUNTER 2025-01-11 03:14 | Emergency (ER) | payer MEDICARE, MEDICAID, SELFPAY ==
--- OUTSIDE RECORDS SUMMARY | 2023-08-09 08:20 | XMS_ITS ---
Author Organization [facility], [facility] Address [address] [place] [address] Care Team Providers Care Pusher Operator Name Role Phone Tiffanie Coulter Primary Care Provider DESTINY Aparicio Unavailable [phone] RUIZ YOU Unavailable [phone] REASON FOR VISIT 2 mo w/ ua/pvr/reyes/kub Encounters Encounter Location Date Provider Diagnosis [facility], [facility] [address] [place] [address] 08/09/2023 RUIZ YOU Plan Of Treatment No Information Progress Notes * Jaspreet CURRANDOB:1970 (54 yo M)Acc No.[id number]:08/09/2023 Progress Notes Patient: Jaspreet CHRISTOPHER Provider: Rakesh You APRN :1970 A ge:52 Y S ex:Male Date:08/09/2023 Address:[address] [place], [place] [id number] Pcp:Tiffanie Coulter Subjective: * Chief Complaints: * 1 . 2 mo w/ ua/pvr/reyes/kub. * Medical History: Objective: * Vitals: Assessment: Plan: * Treatment: * Billing Information: * Visit Code: * Procedure Codes: * Electronic signature of ERNESTINE YOU APRN on 01/11/2025 at 03:20 AM SOFTBALL PLAYER Sign off status: Pending * Provider: Rakesh You APRN Date: 0 08/09/2023 Generated for Tamera amador/Zack/eTransmitting on: 03/13/2024 03:20 AM SOFTBALL PLAYER
--- OUTSIDE RECORDS SUMMARY | 2024-01-05 03:00 | XMS_ITS ---
Author Organization [facility] Address [address] [place] [address] Care Team Providers Care Facetor Name Role Phone Nohemy Nieto Primary Care Provider NOHEMY NIETO Unavailable Unavailable Migration, Provider Unavailable Unavailable REASON FOR VISIT EMR-Gerardo Encounters Encounter Location Date Provider Diagnosis Migrated_Facility 0 0 01/05/2024 Provider Migration Plan Of Treatment Medication Medication Name Sig Start Date Stop Date Notes tiZANidine HCl 4 MG Tablet 0.5 Tablet Th ree times a Day Oral 10/05/2021 11/04/2021 Next Appt Details Provider Name:Nohemy christina, 01/15/2025 01:00:00 PM, [address], [address], Provider Name:Mitul hernández, 01/21/2025 01:30:00 PM, [address], [place], [address], Progress Notes * MATT CURRAN ADOB:[birth year] (54 yo M)Acc No.[id number]:01/05/2024 Patient: MATT CHRISTOPHER Anibal :1970 A ge:53 Y S ex:Male Address:[address] [place] [phone] * Refills Stop tiZANidine HCl Tablet, 4 MG, Oral, 0.5 Tablet Three times a Day Subjective: * Chief Complaints: * E MR-Gerardo * * Date:
--- OUTSIDE RECORDS SUMMARY | 2024-01-06 03:00 | XMS_ITS ---
Author Organization [facility] Address [address] [place] [address] Care Team Providers Care Tool Programmer Name Role Phone Nohemy Nieto Primary Care Provider NOHEMY NIETO Unavailable Unavailable Migration, Provider Unavailable Unavailable Allergies Allergen (clinical drug ingredient) Drug/Non Drug Allergy documented on EMR Reaction Allergy Type Onset Date Status IV DYE, IODINE CONTAINING (uncoded) Unknown Allergy Active diazepam Valium Unknown Drug Allergy Active Contrast Allergy PreMed Pack hives, nausea, lower BP and HR Drug Allergy Active REASON FOR VISIT EMR-Gerardo Social History Social History Additional Details Category Social Info Options Details Migrated Social History Migrated Social History Alcoholic beverages? - No, Applying for disability? - No, Currently on disability? - Yes, Drug or substance abuse? - No, Education - Grade School, exposure to toxins/poisonous substances at work - No, Involved in any legal proceedings or lawsuits? - No, Marital Status - single, Nonprescription drug use? - No, Participation in detoxification or rehabilitation - No, Smoking - No, Smoking status (MU) - Unknown if ever smoked, Working currently? - No Encounters Encounter Location Date Provider Diagnosis Migrated_Facility 0 0 01/06/2024 Provider Migration Plan Of Treatment Next Appt Details Provider Name:Nohemy christina, 01/15/2025 01:00:00 PM, [address] , [facility], [address], [place], [address], Provider Name:Mitul hernández, 01/21/2025 01:30:00 PM, [address], [place], [address], Progress Notes * MATT CURRAN ADOB:[birth year] (54 yo M)Acc No.[id number]:01/06/2024 Patient: MATT CHRISTOPHER :1970 A ge:53 Y S ex:Male Address:[address] [place] [address] [place] [address] Subjective: * Chief Complaints: * E MR-Gerardo * Medical History: Arthritis, G laucoma, H ypertension, K idney stone, M igraine, * Family History: M igrated Family History: : Rheumatoid arthritis, S troke. * Social History: M igrated Social History: M igrated Social History: Alcoholic beverages? - No, A pplying for disability? - No, C urrently on disability? - Yes, D rug or substance abuse? - No, E ducation - Grade School, e xposure to toxins/poisonous substances at work - No, I nvolved in any legal proceedings or lawsuits? - No, M arital Status - single, N onprescription drug use? - No, P articipation in detoxification or rehabilitation - No, S moking - No, S moking status (MU) - Unknown if ever smoked, W orking currently? - No. * Allergies: I V DYE, IODINE CONTAINING: AllergyValium: AllergyContrast Allergy PreMed Pack: hives, nausea, lower BP and HR - Allergy * * Date:
--- OUTSIDE RECORDS SUMMARY | 2024-08-20 11:00 | XMS_ITS ---
Author Organization [facility] Address [address] [place] [address] Care Team Providers Care Station Mechanic Helper Name Role Phone Tiffanie Coulter Primary Care Provider DESTINY Aparicio Unavailable [phone] Eulalio Camilo Unavailable [phone] REASON FOR VISIT w/safety labs Encounters Encounter Location Date Provider Diagnosis [facility], [facility] [address] [place] [address] 08/20/2024 Eulalio Camilo Plan Of Treatment No Information Progress Notes * Jaspreet CURRANDOB:1970 (54 yo M)Acc No.[id number]:08/20/2024 Progress Notes Patient: Jaspreet CHRISTOPHER Provider: Meka Camilo APRN :1970 A ge:53 Y S ex:Male Date:08/20/2024 Address:[address] [place], [place] [phone] Pcp:Tiffanie Coulter Subjective: * Chief Complaints: * 1 . W/safety labs. * Medical History: Objective: * Vitals: Assessment: Plan: * Treatment: * Billing Information: * Visit Code: * Procedure Codes: * Electronic signature of Vel Camilo APRN on 01/11/2025 at 03:21 AM PITCH GATHERER Sign off status: Pending * Provider: Meka Camilo APRN Date: 0 08/20/2024 Generated for Dellai marjorie/Zack/eTransmitting on: 1 03/13/2024 03:21 AM PITCH GATHERER
--- OUTSIDE RECORDS SUMMARY | 2024-09-03 11:00 | XMS_ITS ---
Author Organization [facility] Address [address] [place] [address] Care Team Providers Care Egg Pasteurizer Name Role Phone Tiffanie Coulter Primary Care Provider DESTINY Aparicio Unavailable [phone] Eulalio Camilo Unavailable [phone] REASON FOR VISIT 8-12 wks w/ new labs Encounters Encounter Location Date Provider Diagnosis [facility] [address] [place] [address] 09/03/2024 Eulalio Camilo Plan Of Treatment No Information Progress Notes * Jaspreet CURRANDOB:1970 (54 yo M)Acc No.[id number]:09/03/2024 Progress Notes Patient: Jaspreet CHRISTOPHER Provider: Meka Camilo APRN :1970 A ge:53 Y S ex:Male Date:09/03/2024 Address:[address] [place], [place] [phone] Pcp:Tiffanie Coulter Subjective: * Chief Complaints: * 1 . 8-12 wks w/ new labs. * Medical History: Objective: * Vitals: Assessment: Plan: * Treatment: * Billing Information: * Visit Code: * Procedure Codes: * Electronic signature of Vel Camilo APRN on 01/11/2025 at 03:21 AM MANAGER HEART FAILURE Sign off status: Pending * Provider: Meka Camilo APRN Date: 0 09/03/2024 Generated for Tamera amador/Zack/eTransmitting on: 03/13/2024 03:21 AM MANAGER HEART FAILURE
--- OUTSIDE RECORDS SUMMARY | 2024-12-22 08:00 | XMS_ITS ---
Author Organization [facility] Address [address] [place] [address] Care Team Providers Care Biomedical Engineering Internship Name Role Phone Nohemy Nieto Primary Care Provider [phone] NOHEMY NIETO Unavailable Unavailable Mitul Watson Unavailable [phone] REASON FOR VISIT Colon screening, GERD Encounters Encounter Location Date Provider Diagnosis [facility] [address] [place] [address] 12/22/2024 Mitul Watson GERD (gastroesophage al reflux disease) K21.9 ; History of cholecystectomy Z90.49 and Essential hypertension I10 Assessments Encounter Date Diagnosis (ICD Code) Assessment Notes Treatment Notes Treatment Clinical Notes Section Notes 12/22/2024 GERD (gastroesophageal reflux disease) (ICD-10 - K21.9) 12/22/2024 History of cholecystectomy (ICD-10 - Z90.49) 12/22/2024 Essential hypertension (ICD-10 - I10) Plan Of Treatment Next Appt Details Provider Name:Nohemy christina, 01/15/2025 01:00:00 PM, [address], [address], Provider Name:Mitul hernández, 01/21/2025 01:30:00 PM, [address] [place], [address], Progress Notes * MATT CURRAN ADOB:[birth year] (54 yo M)Acc No.[id number]:12/22/2024 Progress Notes Patient: MATT CHRISTOPHER Anibal Provider: WATSON Villar :1970 A ge:54 Y S ex:Male Date:12/22/2024 Address:[address] [place] [address] KHOA VD-[id number] Pcp:Nohemy Nieto Subjective: * Chief Complaints: * C olon screening, GERD Assessment: * Assessment: 1. G ERD (gastroesophageal reflux disease) - K21.9 (Primary) 2 . H istory of cholecystectomy - Z90.49 3 . E ssential hypertension - I10 Billing Information: * Visit Code: 95793 Office Visit, New Pt., Level 3. * Procedure Codes: * Electronic signature of Regino Watson APRN-CHEMIST HELPER on 01/11/2025 at 03:20 AM CYLINDER BLOCK HOLE RELINER Sign off status: Pending * Provider: Meka Watson APRN MANAGER OF FINANCIALEN Date: Generated for Tamera amador/Zack/Carolsmitting on: 03/13/2024 03:20 AM CYLINDER BLOCK HOLE RELINER
[2025-01-11 03:15] VITALS: BP 141/87; PULSE 91; RESP 20; TEMP 36.6; O2SAT 95; BMI 40.4
--- OUTSIDE RECORDS SUMMARY | 2025-01-11 03:21 | XMS_ITS | Clinical Summary ---
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 Gender Identity Not on file Sexual Orientation [...] (#1) 2024 Medical Devices Implanted Type Area Belt Loop Cutter Device Identifier Shelf Expiration Date Model / Serial / Lot Cochlear Nucleus 5 Model [id number] - [id number] Implanted:Qty: 1 on 01/10/2010 Ear Right: Ear [employer] 11/03/2011 [id number] / [id number] / N/A Description:MODEL CI512 Cochlear Nucleus 5 Model [id number] - [id number] Implanted:Qty: 1 on 10/19/2011 by Sami Smith DO Ear Left: Ear [employer] 06/29/2013 [id number] / [id number] / N/A Description:c124RE ([place] Insurance MEDICAID [facility] MEDICARE HMO Care Teams Professor Of Voice Relationship Specialty Start Date End Date Robel Mahoney MD [address] [phone] PCP - General Family Practice 06/18/18
--- OUTSIDE RECORDS SUMMARY | 2025-01-11 03:21 | XMS_ITS | Patient Health Record ---
Author Organization [facility] Address [address] [place] [address] Care Team Providers Care Tobacco Dipper Name Role Phone Nohemy Nieto Primary Care Provider NOHEMY NIETO Unavailable Unavailable Dusty Varma Unavailable [phone] Mitul Watson Unavailable [phone] Allergies Allergen (clinical drug ingredient) Drug/Non Drug Allergy documented on EMR Reaction Allergy Type Onset Date Status diazepam Valium Unknown Drug Allergy Active Contrast Allergy PreMed Pack hives, nausea, lower BP and HR Drug Allergy Active Iodinated contrast media (substance) Iodinated Diagnostic Agents Unknown Drug Allergy Active Results Component Value Reference Range Notes UA Without Micro-[place], [place] - [address] Reviewed date:06/11/2024 02:50:52 PM Interpretation: Performing Lab: Notes/Report: Color addy Clarity clear Glucose negative Bili negative Ketones negative Sp [place] 1.030 Blood negative pH 6.0 Protein negative Urobili negative Nitrites negative Leukocytes negative Chest AP/Lateral Reviewed date:01/07/2025 03:33:41 PM Interpretation: Performing Lab: Notes/Report: Reason For Referral Reason Chronic lumbar pain Diagnosis 1 Lumbar pain (M54.50) Diagnosis 2 Bilateral leg parest hesia (R20.2) Referring Provider First Name Nohmey Referring Provider Last Name Gerson Referring Provider Speciality Nurse Prac titioner Referred Organization [facility] [place] Referred Provider Dusty Varma Referred Address [address],[place],[address], Referral Priority Routine Reason Chronic lumbar pain Diagnosis 1 Lumbar pain (M54.50) Diagnosis 2 Bilateral leg parest hesia (R20.2) [facility] Referring Provider First Name Nohemy Referring Provider Last Name Gerson Referring Provider Speciality Nurse Oneyda chavez Referred Organization [facility] [place] Referred Provider Dusty Varma Referred Address [address],[place],[address],[place] Referred Provider Specialty Neurosurgery General Notes Adriana Beasley 06/12 09:20:10 AM >sent Referral Priority Routine Reason Colon Cancer Screeni ng , Gerd Called-See TE Diagnosis 1 Gastroesophageal ref lux disease without esophagitis (K21.9) Diagnosis 2 Colon cancer screeni ng (Z12.11) Referring Provider First Name Nohemy Referring Provider Last Name Gerson Referring Provider Speciality Nurse Oneyda chavez Referred Organization [facility] Referred Provider Gutierrez [facility] Referred Address [address] [place],[address],[place] Referred Provider Specialty Gastroentero logy Referral Priority Routine Reason Colon Cancer Screeni ng Gerd Diagnosis 1 Colon cancer screeni ng (Z12.11) Diagnosis 2 Gastroesophageal ref lux disease without esophagitis (K21.9) [facility] Referring Provider First Name Nohemy Referring Provider Last Name Gerson Referring Provider Speciality Nurse Oneyda chavez Referred Organization [facility] Referred Provider Flakito Winchester Referred Address [address] [place],[address],[place] Referred Provider Specialty Gastroentero logy Referral Priority Routine Medications Medication SIG (Take, Route, Frequency, Duration) Notes Start Date End Date Status SUMAtriptan Succinate 50 MG Tablet 1 tablet as needed, may take second dose at least 2 hours after first dose up to 4 tablets per day as needed Orally Once a day; Duration: 30 days 01/01/2025 Active Pantoprazole Sodium 40 MG Tablet Delayed Release 1 tablet 1/2 to 1 hour before morning meal Orally Once a day; Duration: 30 days 01/01/2025 Active Cholestyramine 4 GM Packet 1 packet mixe d with water or non-carbonated drink Orally Once a day; Duration: 30 days 10/30/2024 Active Immunizations Vaccine Route Administration Date Status Comme nts Flucelvax Trivalent, Syringe 0.5 mL, PF Unknown 025 Refused Social History Tobacco Use: Social History Observation [...] currently? - No Section Notes: 12/19/21 PHQ9 02/20/23 PHQ9 12/19/21 PHQ9 02/20/23 PHQ9 06/11/24 PHQ9 12/19/21 PHQ9 12/19/21 PHQ9 12/19/21 PHQ9 12/19/21 PHQ9 02/20/23 PHQ9 06/11/24 PHQ9 12/19/21 PHQ9 02/20/23 PHQ9 06/11/24 PHQ9 12/19/21 PHQ9 02/20/23 PHQ9 Problems Problem Type SNOMED Code ICD Code Onset Dates Problem Status W/U Status Risk Notes Problem Chronic pain (86039146) Other chronic pain (G89.29) Active confirmed Problem Asymptomatic microscopic hematuria (59872535355581283) Asymptomatic microscopic hematuria (R31.21) Active confirmed Problem Essential hypertension (87400200) Essential hypertension (I10) Active confirmed Problem Male hypogonadism (36963930) Hypogonadism in male (E29.1) Active confirmed Problem Gastroesophageal reflux disease without esophagitis (015816533) Gastroesophageal reflux disease without esophagitis (K21.9) Active confirmed Problem Nephrolithiasis (00713828) Nephrolithiasis (N20.0) Active confirmed Problem Obesity (385206347) Obesity (BMI 30-39.9) (E66.9) Active confirmed Problem Prostate specific antigen measurement (71346762) Screening PSA (prostate specific antigen) (Z12.5) Active confirmed Problem History of cholecystectomy (999467073) History of cholecystectomy (Z90.49) Active confirmed Problem Migraine (60338384) Migraine (G43.909) Active c onfirmed Problem Morbid obesity (540253643) Morbid obesity (E66.01) Active confirmed Problem Gastroesophageal reflux disease (891110080) GERD (gastroesophageal reflux disease) (K21.9) Active confirmed Problem Kidney stone (75899903) Kidney stones (N20.0) Active confirmed Problem 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, 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) Active confirmed Problem Skin sensation disturbance (89076071) Bilateral leg paresthesia (R20.2) Active confirmed Vital Signs Heart Rate 94 /min 01/01/2025 Temperature 97.4 degrees Fahrenheit 01/01/2025 Respiratory Rate 20 /min 01/01/2025 Blood pressure diastolic 82 mm Hg 01/01/2025 Oximetry 94 % 01/01/2025 Height-cm 170.18 cm 01/01/2025 Weight-kg 118.39 kg 01/01/2025 Height 67 in 01/01/2025 Blood pressure systolic 130 mm Hg 01/01/2025 Weight 261 lbs 01/01/2025 BMI 40.87 kg/m2 01/01/2025 Procedures Procedure Date Ordered Date Performed Result Body Sit e -ELECTROCARDIOGRAM, COMPLETE 01/01/2025 N/A Encounters Encounter Location Date Provider Diagnosis [facility] [address] [place] [address] 01/01/2025 Nohemy Gerson Essential hypertension I10 ; Dyspnea R06.00 ; GERD (gastroesophageal reflux disease) K21.9 ; History of cholecystectomy Z90.49 ; Encounter for immunization Z23 and Immunization not carried out because of patient refusal Z28.21 [facility] Office [address] [facility] [address] [place] [address] 06/11/2024 Nohemy Gerson Lumbar pain M54.50 ; Bilateral leg paresthesia R20.2 ; Migraine G43.909 ; Morbid obesity E66.01 and Depression screen Z13.31 [facility] [address] [place] [address] 10/30/2024 Nohemy Gerson Acute bronchitis J20.9 ; Chronic diarrhea K52.9 and History of cholecystectomy Z90.49 [facility] [address] [place] [address] 01/02/2025 Nohemypaulino Salmerondeandra [facility] [address] [facility] [address] [place] [address] 01/01/2025 [facility] [address] [place] [address] 12/01/2024 Nohemy Nieto [facility] [address] [place] [address] 08/18/2024 Mitul Watson [facility] [address] [facility] [address] [place] [address] 07/10/2024 Nohemy Gerson Lumbar pain M54.50 [facility] [address] [place] [address] 06/23/2024 Nohemy Nieto Assessments Encounter Date Diagnosis (ICD Code) Assessment Notes Treatment Notes Treatment Clinical Notes Section Notes 07/10/2024 Lumbar pain (ICD-10 - M54.50) 10/30/2024 Acute bronchitis (ICD-10 - J20.9) Increase fluids, take medication as directed. RTC if no improvement with treatment. Questions asked and answered; discharged to home. 10/30/2024 Chronic diarrhea (ICD-10 - K52.9) 01/01/2025 Dyspnea (ICD-10 - R06.00) EKG done in clinic, normal sinus rhythum. Will have CXR at [facility]. Questions asked and answered; discharged to home. 06/11/2024 Bilateral leg paresthesia (ICD-10 - R20.2) 06/11/2024 Lumbar pain (ICD-10 - M54.50) 01/01/2025 Essential hypertension (ICD-10 - I10) Stable, continue same. 01/01/2025 GERD (gastroesophageal reflux disease) (ICD-10 - K21.9) Recheck in 2 weeks. 06/11/2024 Migraine (ICD-10 - G43.909) 10/30/2024 History of cholecystectomy (ICD-10 - Z90.49) 06/11/2024 Morbid obesity (ICD-10 - E66.01) 01/01/2025 History of cholecystectomy (ICD-10 - Z90.49) 06/11/2024 Depression screen (ICD-10 - Z13.31) 01/01/2025 Encounter for immunization (ICD-10 - Z23) 01/01/2025 Immunization not carried out because of patient refusal (ICD-10 - Z28.21) Plan Of Treatment Pending Test Test Name Order Date -ELECTROCARDIOGRAM, COMPLETE 01/01/2025 CBC w\ Auto Diff 54156 08/15/2021 Hepatic Function Panel 80009 08/15/2021 PSA Diagnostic--78407 08/15/2021 Testosterone Total 02306 08/15/2021 US Renal w/bladder-56901 08/15/2021 Abdomen AP-30768 08/15/2021 Abdomen AP-34892 01/24/2022 Next Appt Details Provider Name:Nohemy christina, 01/15/2025 01:00:00 PM, [address] , [facility], [place], [address], Provider Name:Mitul hernández, 01/21/2025 01:30:00 PM, [address], [place], [address], Insurance Providers Payer Name Payer Address Payer Phone Subscriber Number Group Number Insured Name Patient Relationship to Insured Coverage Start Date Coverage End Date [employer] Medicare Replacement [address] [place] [address] [id number] MATT CURRAN Self - patient is the insured Medications Administered Medication Instructions Date of Administration Dosage Notes Ketorolac Tromethamine 02/20/2023 60 mg nd [id number] Patient tolerated well. Medical (General) History Medical History History ICD Code Hypertension Arthritis Back injury Cochlear implants Head trauma Testosterone deficiency in male E29.1 Right ankle sprain 08/2021 Surgical History Surgery Date(Month/Year) Cochlear implant cataract retina left arm elbow surgery (removed bursa sa c) 2020 blepharoplasty, bilatral 07/2021 Cholycystectomy 04/11/21 Hospitalization History Reason Date(Month/Year) fall 2017
--- NOTE | 2025-01-11 03:23 | ECG_ITS ---
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 Measurements Intervals [place] Rate: 86 P: 52 DE: 139 QRS: 59 QRSD: 81 T: 35 QT: 369 QTc: 442 Interpretive Statements SINUS RHYTHM NONSPECIFIC T WAVE ABNORMALITIES Compared to ECG 10/29/2024 15:49:30 NO SIGNIFICANT CHANGE Electronically Signed On 01-11-2025 14:12:44 CAMERA SUPERVISOR by Jayce Cooper M.D. [id number]
--- OUTSIDE RECORDS SUMMARY | 2025-01-11 03:24 | XMS_ITS | Patient Health Record ---
Author Organization [facility] Address [address] [place] [address] Care Team Providers Care Mobile Paint Specialist Name Role Phone Tiffanie Coulter Primary Care Provider DESTINY Aparicio Unavailable [phone] RUIZ YOU Unavailable [phone] Eulalio Camilo Unavailable [phone] Allergies Allergen (clinical drug ingredient) Drug/Non Drug [...] for falsely elevated results. Testing performed at: [address] [place] [address] CLIA ID [id number] Total Protein 6.8 5.8-8.0 G/DL Albumin 4.8 3.2-4.8 G/DL Bili Total 1.5 .3-1.2 MG/DL Bili Direct .50 .05-.40 MG/DL Alk Phos 102 46-116 AST/SGOT 24 15-37 UNIT/L ALT/SGPT 23 12-78 UNIT/L Testosterone Total Reviewed date:06/23/2024 01:16:16 PM Interpretation: Performing Lab: Notes/Report: Testoster Tot 293.73 87.00-780.00 NG/DL Performed on the [employer] IM Analyzer Testing performed at: [address] [place] [address] CLIA ID [id number] US Renal--[id number] Reviewed date:06/23/2024 01:16:42 PM Interpretation: Performing Lab: [...] W/U Status Risk Notes Problem Chronic pain (73318265) Other chronic pain (G89.29) Active confirmed Problem Calculus of kidney (47232826) Calculus of kidney (N20.0) Active confirmed Problem Nocturia (181213813) Nocturia (R35.1) Active confirmed Problem Essential hypertension (28333773) Essential hypertension (I10) Active confirmed Problem Asymptomatic microscopic hematuria (94620393772805989 ) Asymptomatic microscopic hematuria (R31.21) Active confirmed Problem Lower urinary tract symptoms due to benign prostatic hypertrophy (69399113874445) Benign localized hyperplasia of prostate with urinary obstruction (N40.1) Active confirmed Problem Benign prostatic hypertrophy without outflow obstruction (925022717) BPH loc w/o ur obs/LUTS (N40.0) Active confirmed Problem Nephrolithiasis (55234628) Nephrolithiasis (N20.0) Active confirmed Problem Constipation (88086034) Constipation (K59.00) Active confirmed Problem Male hypogonadism (62393658) Hypogonadism in male (E29.1) Active confirmed Problem 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, 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) Active confirmed Problem Kidney stone (51468474) Kidney stones (N20.0) Active confirmed Problem Lower abdominal pain (50365400) Lower abdominal pain (R10.30) Active confirmed Problem Obesity (103798006) Obesity (BMI 30-39.9) (E66.9) Active confirmed Problem Prostate specific antigen measurement (79030522) Screening PSA (prostate specific antigen) (Z12.5) Active confirmed Vital Signs Heart Rate 89 /min 06/23/2024 Height-cm 170.18 cm 06/23/2024 Blood pressure diastolic 102 mm Hg 06/23/2024 Weight-kg 102.06 kg 06/23/2024 Height 67 in 06/23/2024 Blood pressure systolic 142 mm Hg 06/23/2024 Weight 225 lbs 06/23/2024 BMI 35.24 kg/m2 06/23/2024 Encounters Encounter Location Date Provider Diagnosis [facility] [address] [place] [address] 06/23/2024 RUIZ YOU Nephrolithiasis N20. 0 ; Hypogonadism in male E29.1 and Screening PSA (prostate specific antigen) Z12.5 [facility] [address] [place] [address] 04/24/2024 RUIZ YOU Nephrolithiasis N20. 0 ; Screening PSA (prostate specific antigen) Z12.5 and Hypogonadism in male E29.1 [facility], [facility] [address] [place] [address] 05/21/2024 DESTINY GARIBAY [facility], [facility] [address] [place] [address] 06/26/2024 RUIZ YOU Hypogonadism in male E29.1 [...] 06/26/2024 Hypogonadism in male (ICD-10 - E29.1) 06/26/2024 Prostate cancer screening (ICD-10 - Z12.5) 06/23/2024 Screening PSA (prostate specific antigen) (ICD-10 - Z12.5) 04/24/2024 Screening PSA (prostate specific antigen) (ICD-10 - Z12.5) 04/24/2024 Hypogonadism in male (ICD-10 - E29.1) Plan Of Treatment Pending Test Test Name Order Date 38105 KUB, X-Ray: Abdomen, Kidney, Urete r, bladder 04/24/2024 Urinalysis, Routine 06/23/2024 Hepatic Function Panel (7) 05/24/2023 CBC 05/24/2023 X ray : Kidneys, Ureters and Bladder ([facility]U B) 05/24/2023 Testosterone, total 05/24/2023 PSA, total (cpt 28846) 05/24/2023 Liver Function Test (LFT) 06/26/2024 Liver Function Test (LFT) 04/24/2024 Renal Ultrasound STEPHAN 19766 05/24/2023 Renal Ultrasound STEPHAN 08352 04/24/2024 CBC w\ Auto Diff 75894 08/15/2021 Hepatic Function Panel 80011 08/15/2021 PSA Diagnostic--53189 08/15/2021 Testosterone Total 24826 08/15/2021 US Renal w/bladder-84390 08/15/2021 Abdomen AP-08389 01/24/2022 Abdomen AP-15633 08/15/2021 CBC w/ Auto Diff 04/24/2024 Estradiol Level 04/24/2024 Estradiol Level 06/26/2024 Testosterone Total 06/26/2024 Testosterone Total 04/24/2024 PSA-Diagnostic 04/24/2024 PSA-Diagnostic 06/26/2024 Hematocrit 06/26/2024 Future Test Test Name Order Date CBC w\ Auto Diff 99009 01/24/2022 Estradiol Level 53521 01/24/2022 Testosterone, Bio and SHBG, Adult Male 8 4403, 84366 01/24/2022 CBC w\ Auto Diff 78368 09/07/2022 Hepatic Function Panel 25266 09/07/2022 PSA Diagnostic--34773 09/07/2022 Testosterone Total 65205 09/07/2022 HEPATIC FUNCTION PANEL (86140) HEMATOCRIT (509) 08/05/2024 ESTRADIOL (4021) 08/05/2024 TESTOSTERONE, TOTAL, MALES (ADULT), [place] ( 873) 08/05/2024 PSA, TOTAL (5363) 08/05/2024 Insurance Providers Payer Name Payer Address Payer Phone Subscriber Number Group Number Insured Name Patient Relationship to Insured Coverage Start Date Coverage End Date [place] Medicaid [address] [place], [place] [id number] Jaspreet Charlton Self - patient is the [...]
--- NOTE | 2025-01-11 03:36 | XRR_ITS ---
PROCEDURE INFORMATION: Exam: XR Chest Exam date and time: 01/11/2025 3:34 AM Age: 54 years old Clinical indication: Shortness of breath; C/O SOB. History of asthma. TECHNIQUE: Imaging protocol: Radiologic exam of the chest. Views: 1 view. COMPARISON: CR XR chest 2V* 31857 01/01/2025 11:32 AM FINDINGS: Lungs: There is subsegmental atelectasis near the left costophrenic sulcus. Lung volumes are generally low. Pleural spaces: Unremarkable. No pleural effusion. No pneumothorax. Heart/Mediastinum: Unremarkable. No cardiomegaly. Bones/joints: Unremarkable. XR/XR chest 1V portable 18417 IMPRESSION: Subsegmental atelectasis.
[2025-01-11 03:44] LABS: Hematocrit 46.6 % (37-53); Hemoglobin 15.00 g/dL (11.27-16.99); Mean Corpuscular HGB Conc 32.2 g/dL (30-55); Mean Corpuscular Hemoglobin 28.6 pg (27-33); Mean Corpuscular Volume 88.9 fl (82-101); Nucleated Red Blood Cells % 0 %; Platelet Count 266 10^3/cmm (157-399); Red Blood Count 5.24 10^6/uL (3.85-5.65); White Blood Count 7.55 10^3/uL (3.29-11.43)
[2025-01-11 03:56] VITALS: PULSE 78; RESP 18; O2SAT 96
--- NOTE | 2025-01-11 03:58 | ED_ITS ---
HPI - SOB/Dyspnea 2 General: Chief Complaint: Shortness of Breath/Dyspnea Stated Complaint: SOB, thinks could be asthma attack Time Seen by Provider: 01/11/25 03:30 History of Present Illness: HPI Narrative: Patient is a 54-year-old male presenting with episodic dyspnea of unclear etiology. He reports experiencing episodes where he feels like he can't get no air. These episodes occur intermittently, with a recent significant episode last week that caused him to stay awake for three consecutive days due to breathing difficulties. The patient notes that symptoms are worse when lying down to sleep but can also occur during the day. He denies cough, fever, or chest pain, but reports possible wheezing at times. Patient recently saw another provider who ordered a chest X-ray, which was reportedly clear. Patient is uncertain whether his symptoms represent asthma, anxiety, or another condition. He also reports concurrent lower back pain, which is chronic for him, and questions whether this might be related to his breathing difficulties. Related Data Previous Rx's ?Medication ?Instructions ?Recorded testosterone cypionate 200 mg/mL 150 mg (0.75 mL) IM . COMPLEX 90 07/06/20 intramuscular oil days #4 mL (Depo-Testosterone) ibuprofen 600 mg tablet 600 mg PO Q6H PRN fever or p ain 11/06/22 #30 tabs celecoxib 100 mg capsule (Celebrex) 100 mg PO BID PRN pain #20 caps 01/01/23 cyclobenzaprine 10 mg tablet 10 mg PO BID PRN muscle s pasm #20 01/01/23 tabs oxycodone-acetaminophen 5 mg-325 1 - 2 tab PO .Every 4 -6 hours PRN 05/01/23 mg tablet (Percocet) pain #25 tabs promethazine 25 mg tablet 25 mg PO Q6H PRN nausea and 05/01/23 vomiting #20 tabs tamsulosin 0.4 mg capsule 0.4 mg PO .Twice daily #30 c aps 05/01/23 cyclobenzaprine 10 mg tablet 10 mg PO TID PRN muscle s pasm #30 11/10/23 tabs ibuprofen 800 mg tablet 800 mg PO TID PRN pain #30 t abs 11/10/23 albuterol sulfate 90 mcg/actuation 2 inh inhalation Q4 H PRN shortness 01/11/25 aerosol inhaler of breath or wheezing #6.7 g roslyn methylprednisolone 4 mg tablets in See Rx Instructions PO .COMPLEX 01/11/25 a dose pack (Medrol (Brody)) #21 ea Allergies Allergy/AdvReac Type Severity Reaction Status Date / Time diazepam AdvReac Mild DOESN'T Verified 01/11/25 03:20 FEEL RIGHT Iodinated Contrast Media AdvReac Mild SHORT OF Verified 01/11/25 03:20 BREATH PFSH ED 2 PFSH: Medical History GERD (gastroesophageal reflux disease) Renal cyst, right Renal calculus, right Low testosterone Hypothyroid Essential hypertension Osteoarthritis involving multiple joints on both sides of body GABBIE (obstructive sleep apnea) HTN (hypertension) Surgical History Status post laparoscopic cholecystectomy (04/11/21) History of colonoscopy 2020 S/P cataract extraction H/O circumcision History of cochlear implant H/O detached retina repair Hx of umbilical hernia repair History of uvulectomy Family History Grandmother Hypertension MATERNAL Other CAD (coronary artery disease) Stroke Social History Smoking and tobacco/nicotine status: never used tobacco/nicotine Alcohol intake: never Substance/Drug Use: never Physical Exam 2 Const: COMMON NORMALS: no acute distress GENERAL APPEARANCE: cooperative and anxious; not frail appearing HENMT: COMMON NORMALS: normocephalic, atraumatic and Normal external nose present HEAD & SCALP: normocephalic and atraumatic FACE & SINUS: normal facial exam and face symmetric NOSE: Normal external nose present Eye: COMMON NORMALS: Equal, round and reactive pupils present and EOMs intact bilaterally PUPIL: Yes Equal, round and reactive pupils present Neck/C-Spine: GENERAL: Yes trachea midline Chest: CHEST: Yes Symmetrical chest wall rise Resp: COMMON NORMALS: normal respiratory effort, No retractions, No use of accessory muscles and clear to auscultation bilaterally AUSCULTATION: clear to auscultation bilaterally Cardio: COMMON NORMALS: regular rate and regular rhythm RATE: regular rate RHYTHM: regular rhythm GI: COMMON NORMALS: Normal to inspection, nondistended, normoactive bowel sounds present Extremity: COMMON NORMALS: no pedal edema Neuro: NICOLE COMA SCALE: document GCS findings [place] coma scale eye opening: Spontaneous Nicole coma scale verbal response: Orientated [place] coma scale motor response: Obey commands [place] coma scale total score: 15 S ENSORY EXAM: Yes extremities (intact) Psych: COMMON NORMALS: speech normal SPEECH: Yes normal speech Skin: COMMON NORMALS: no rashes or lesions noted GENERAL SKIN EXAM: no rashes or lesions noted Course 2 Vital Signs: Vital signs: Vital Signs Temperature 97.9 F 01/11/25 03:15 Pulse Rate 78 01/11/25 04:12 Respiratory Rate 26 H 01/11/25 04:12 Blood Pressure 141/87 01/11/25 04:12 Pulse Oximetry 90 01/11/25 04:12 Oxygen Delivery Me thod Room Air 01/11/25 03:56 MDM - SOB/Dyspnea Medical Decision Making 50-year-old male patient with shortness of breath. No fever. Minimal cough. No chest pain. Vitals are stable here. Saturations are 95% on room air. He is nontachycardic. CBC is normal. Creatinine is 1.3. Otherwise BMP is normal. Chest x-ray shows subsegmental atelectasis. No infiltrates. He feels better after breathing treatment here and some Ativan. He will be placed on tapering dose of steroid, given scheduled inhaler treatments for the next 48 hours then as needed. He knows to return for any worsening symptoms despite treatment or development of chest discomfort, etc. Primary care follow-up. He stable for discharge. Lab Data 01/11/25 03:30 01/11/25 03:30 Labs/Radiology: Radiology Impressions Chest X-Ray 01/11/25 03:36 IMPRESSION: Subsegmental atelectasis. Laboratory Results WBC 7.55 10^3/uL (3.29-11.43) 01/11/25 03:30 RBC 5.24 10^6/uL (3.85-5.65) 01/11/25 03:30 Hgb 15.00 g/dL (11.27-16.99) 01/11/25 03:30 Hct 46.6 % (37-53) 01/11/25 03:30 MCV 88.9 fl (82-101) 01/11/25 03:30 MCH 28.6 pg (27-33) 01/11/25 03:30 MCHC 32.2 g/dL (30-55) 01/11/25 03:30 RDW 13.2 % (12.1-15.1) 01/11/25 03:30 Plt Count 266 10^3/cmm (157-399) 01/11/25 03:30 MPV 10.4 fL (7.4-10.4) 01/11/25 03:30 Neut % (Auto) 48.2 % 01/11/25 03:30 Lymph % (Auto) 34.7 % 01/11/25 03:30 [place] % (Auto) 13.0 % 01/11/25 03:30 Eos % (Auto) 2.9 % 01/11/25 03:30 Baso % (Auto) 0.8 % 01/11/25 03:30 Neut # (Auto) 3.64 10^3/uL (1.8-7.7) 01/11/25 03:30 Lymph # (Auto) 2.6 10^3/uL (0.8-4.8) 01/11/25 03:30 [place] # (Auto) 1.0 10^3/uL (0.2-0.9) H 01/11/25 03:30 Eos # (Auto) 0.2 10^3/uL (0.0-0.8) 01/11/25 03:30 Baso # (Auto) 0.1 10^3/uL (0.0-0.1) 01/11/25 03:30 Nucleated RBC % (auto) 0 % 01/11/25 03:30 Nucleated RBCs # 0.0 /100WBC 01/11/25 03:30 D-Dimer <= 0.27 ug/mLFEU (0-0.59) 01/11/25 03:30 Sodium 138 mmol/L (136-145) 01/11/25 03:30 Potassium 4.4 mmol/L (3.5-5.1) 01/11/25 03:30 Chloride 104 mmol/L (98-107) 01/11/25 03:30 Carbon Dioxide 26 mmol/L (22-29) 01/11/25 03:30 Anion Gap 12.4 (5-19) 01/11/25 03:30 BUN 21 mg/dL (6-20) H 01/11/25 03:30 Creatinine 1.3 mg/dL (0.7-1.2) H 01/11/25 03:30 GFR Calculation 57.5 mL/min (90-130) L 01/11/25 03:30 Glucose 90 mg/dL (65-115) 01/11/25 03:30 Calculated Osmolality 289 mOsm/kg (285-295) 01/11/25 03:30 Calcium 9.4 mg/dL (8.5-10.5) 01/11/25 03:30 Total Bilirubin 0.7 mg/dL (0.15-1.2) 01/11/25 03:30 AST 22 U/L (0-40) 01/11/25 03:30 ALT 33 U/L (0-41) 01/11/25 03:30 Alkaline Phosphatase 107 U/L (40-130) 01/11/25 03:30 NT-Pro-B Natriuret Pep < 36 pg/mL (0-125) 01/11/25 03:30 Total Protein 7.2 g/dL (6.6-8.7) 01/11/25 03:30 Albumin 4.4 g/dL (3.5-5.2) 01/11/25 03:30 Globulin 2.8 g/dL (1.3-4.6) 01/11/25 03:30 Influenza A (PCR) Negative (Negative) 01/11/25 03:44 Influenza Type B (PCR) Negative (Negative) 01/11/25 03:44 RSV (PCR) Negative (Negative) 01/11/25 03:44 SARS-CoV-2 (PCR) Negative (Negative) 01/11/25 03:44 All radiology interpretation(s) finalized by discharge Discharge Plan Discharge Patient Disposition: Home Clinical Impression: Dyspnea Condition: Stable Prescriptions: New methylprednisolone [Medrol (Brody)] 4 mg tablets,dose pack See Rx Instructions .ROUTE .COMPLEX Qty: 21 0RF Rx Instructions: orally per package directions albuterol sulfate 90 mcg/actuation HFA aerosol inhaler 2 inh INHALATION Q4H PRN (Reason: shortness of breath or wheezing) Qty: 6.7 1RF No Action celecoxib [Celebrex] 100 mg capsule 100 mg PO BID PRN (Reason: pain) Qty: 20 0RF cyclobenzaprine 10 mg tablet 10 mg PO BID PRN (Reason: muscle spasm) Qty: 20 0RF Rx Instructions: do not use when operating a vehicle or heavy machinery testosterone cypionate [Depo-Testosterone] 200 mg/mL oil 150 mg IM .COMPLEX 90 Days Qty: 4 3RF Rx Instructions: 150 mg IM [id number]; ibuprofen 600 mg tablet 600 mg PO Q6H PRN (Reason: fever or pain) Qty: 30 0RF promethazine 25 mg tablet 25 mg PO Q6H PRN (Reason: nausea and vomiting) Qty: 20 0RF tamsulosin 0.4 mg capsule 0.4 mg PO .Twice daily Qty: 30 0RF Percocet 5-325 mg tablet 1 - 2 tab PO .Every 4-6 hours PRN (Reason: pain) Qty: 25 0RF cyclobenzaprine 10 mg tablet 10 mg PO TID PRN (Reason: muscle spasm) Qty: 30 0RF ibuprofen 800 mg tablet 800 mg PO TID PRN (Reason: pain) Qty: 30 0RF Discharge Orders: Discharge ED (Routine); Ordered 01/11/25 Ordered By: Kody Clifton Patient Instructions: Dyspnea (ED), Opioid Safety, Pain Management, Patient Portal & Stephanie Instructions Activity Restrictions/Additional Instructions: Use your inhaler as prescribed every 4 hours while awake for the first 48 hours whether you feel short of breath or not, then you may use it as needed following that. Other medication as directed. Return for worsening shortness of breath, development of chest pain, fever, other concerning symptoms. Call your doctor tomorrow for follow-up appointment this coming week. Print Language: Brazilian Coding Level of Care Code ED Communication Manager for Umang Beltran
[2025-01-11 04:04] VITALS: PULSE 81
[2025-01-11 04:08] LABS: Alanine Aminotransferase 33 U/L (0-41); Albumin Level 4.4 g/dL (3.5-5.2); Alkaline Phosphatase 107 U/L (40-130); Anion Gap 12.4 (5-19); Aspartate Amino Transferase 22 U/L (0-40); Blood Urea Nitrogen 21 mg/dL (6-20); Calcium 9.4 mg/dL (8.5-10.5); Carbon Dioxide 26 mmol/L (22-29); Chloride 104 mmol/L (98-107); Creatinine Clr Calc Pharmacy 79.5331; Globulin 2.8 g/dL (1.3-4.6); Glucose 90 mg/dL (65-115); NT Pro B Type Natriuretic Pept < 36 pg/mL (0-125); Osmolality Calculated 289 mOsm/kg (285-295); Potassium 4.4 mmol/L (3.5-5.1); Sodium 138 mmol/L (136-145); Total Protein 7.2 g/dL (6.6-8.7)
[2025-01-11] MEDS: methylPREDNISolone sod succ 125 mg/2 mL INJ IVP (04:09)
[2025-01-11] MEDS: LORazepam 2 mg/mL INJ 1 mL 1 MG IVP (04:09)
[2025-01-11 04:12] VITALS: BP 141/87; PULSE 78; RESP 26; O2SAT 90
[2025-01-11 04:36] LABS: Respiratory Syncytial Virus Ce NEGATIVE (Negative); SARS-CoV-2 PCR NEGATIVE (Negative)
[2025-01-11 05:28] VITALS: BP 141/87; PULSE 69; O2SAT 93
== END 2025-01-11 05:19 | disposition home or self-care (01) ==
PROVIDERS: Emergency Provider Emergency Medicine
DX: R06.00 Dyspnea, unspecified (principal); Z11.52 Encounter for screening for COVID-19; I10 Essential (primary) hypertension
CPT/HCPCS: 71045; 80053; 83880; 85025; 85378; 87637; 93005; 94640; 96374; 96375; 99285; J2060; J2919; J9999